=== PATIENT | female | born 1965 | race African-American/Black ===

== ENCOUNTER 2020-04-13 13:23 | Inpatient (IN) | payer MEDICARE, OTHER ==
[~2020-04-13] VITALS: Ht 157.5 cm; Wt 126.8 kg
[~2020-04-13 13:23] MED LIST: ALBUTEROL2.5 MG/3 M HHN; AMBIEN10 MG ORAL; ASPIRIN81 MG ORAL; ATARAX25 MG ORAL; ATARAX50 MG ORAL; BACTRIM DS TAB1 EAC1 ORAL; BENADRYL25 MG IVP; BENADRYL50 MG/ML IVP; CARISOPRODOL350 MG ORAL; CATAPRES0.1 MG ORAL; CEPHALEXIN500 MG ORAL; COLACE100 MG ORAL; COMBIVENT RESPIM4 GM IH; COZAAR50 MG ORAL; DEXTROSE 50%-WA50 M1 IV; DIAZEPAM10 MG ORAL; DILAUDID4 MG ORAL; FLONASE1 SPRAYS NASAL; FLUTICASONE PRO16 G1 NASAL; HYDROCODON-ACE1 EA13 ORAL; HYDROMORPHO IVP; IBUPROFEN200 MG ORAL; IMITREX50 MG ORAL; KEFLEX500 MG ORAL; LOSARTAN POTASS25 MG ORAL; NASONEX17 GM NASAL; NEURONTIN100 MG ORAL; NORCO 10-325 T1 EACH ORAL; NORCO 5-325 TA1 EACH ORAL; NOVOLOG100 UNIT/3 SUBQ; PHENAZOPYRIDIN200 MG ORAL; PREDNISONE10 M2 PO; PREDNISONE20 MG ORAL; PROTONIX40 MG ORAL; REGLAN10 MG ORAL; SOMA350 MG ORAL; SOMA350 MG PO; TOPIRAMATE25 MG ORAL; VALACYCLOVIR500 MG ORAL; VALIUM10 MG ORAL; VALTREX500 MG ORAL; VICODIN 5-5001 EACH ORAL; ZOFRAN 4 MG4 MG/2 ML IV; ZOFRAN4 M3 ORAL; ZOFRAN4 MG ORAL; ZOLPIDEM TARTRAT5 MG ORAL
--- NOTE | 2020-04-13 17:25 | NUR ---
NURSE NOTES: Received patient to room 404 bed 2, patient Direct Admission from home. Patient is alert and oriented,respirations unlabored.Noted patient with complaint of pain,with redness noted to bilateral palms of hands with a rash like appearance and swelling noted to hands.Bilateral legs /feet with swelling noted.will notify DR Garvin of patient admission.Call light within reach.Patient has personal belongings with henderson counted,patient wants to keep money with her.
[2020-04-13] MEDS ORDERED: Lidocaine 1% Plain 30 ml INJ PRN (18:07)
[2020-04-13] MEDS ORDERED: Heparin1,000 units/500ml Premix(Conc:2 units/ml) IV PRN (18:08)
[2020-04-13 18:33] VITALS: BP 177/101
[2020-04-13] MEDS: Docusate 100mg cap ORAL SCH (19:05)
--- NOTE | 2020-04-13 19:30 | NUR ---
HAND-OFF: Report given to Alda FENG aware of fall risk.
--- NOTE | 2020-04-13 19:31 | NUR ---
NURSE NOTES: Received patient in no apparent distress. A&OX4. Bed in lowest position. Call light within reach. Will continue to monitor.
[2020-04-13 20:00] VITALS: BP 142/90
[2020-04-13] MEDS: Dyna-Hex 2% Top Sol 2oz TOPIC SCH (20:00)
--- NOTE | 2020-04-13 20:06 | NUR ---
NURSE NOTES: Obtained Heparin 5000unit subq bid order from Dr. Garvin.
[2020-04-13] MEDS: Heparin 5000 units/ml inj SUBQ SCH (21:00)
[2020-04-13 22:00] LABS: ALANINE AMINOTRANSFERASE 37 U/L (12-78); ALBUMIN 3.4 G/DL (3.4-5.0); ALBUMIN/GLOBULIN RATIO 0.9 (1.0-2.7); ALKALINE PHOSPHATASE 127 U/L (46-116); ANION GAP 13 mmol/L (5-15); ASPARTATE AMINO TRANSFERASE 71 U/L (15-37); BILIRUBIN,TOTAL 0.2 MG/DL (0.2-1.0); BLOOD UREA NITROGEN 13 mg/dL (7-18); CALCIUM 8.9 MG/DL (8.5-10.1); CARBON DIOXIDE 24 MMOL/L (21-32); CHLORIDE 97 MMOL/L (98-107); CREATININE 1.1 MG/DL (0.55-1.30); POTASSIUM 5.1 MMOL/L (3.5-5.1); SODIUM 134 MMOL/L (136-145)
[2020-04-14] VITALS: BP 154/81
[2020-04-14 00:18] LABS: BASOPHILS % (AUTO) 1.6 % (0.0-2.0); EOSINOPHILS % (AUTO) 1.4 % (0.0-3.0); HEMATOCRIT 44.6 % (37.0-47.0); HEMOGLOBIN 14.3 G/DL (12.0-16.0); LYMPHOCYTES % (AUTO) 31.3 % (20.0-45.0); MEAN CORPUSCULAR VOLUME 84 FL (80-99); NEUTROPHILS % (AUTO) 60.7 % (45.0-75.0); PLATELET COUNT 261 K/UL (150-450); RED BLOOD COUNT 5.34 M/UL (4.20-5.40); RED CELL DISTRIBUTION WIDTH 12.1 % (11.6-14.8); WHITE BLOOD COUNT 7.2 K/UL (4.8-10.8)
[2020-04-14 04:00] VITALS: BP 160/98
--- NOTE | 2020-04-14 07:22 | NUR ---
HAND-OFF: Report given to Bev FENG. VS stable. Bed in lowest position. Call light within reach. Will continue to moniotor.
--- NOTE | 2020-04-14 07:59 | NUR ---
NURSE NOTES: Patient awake and alert and oriented,respirations unlabored.Patient sitting up.Noted skin on the right big toe second and 3rd toe,patient state she picked the dry skin around the toes and the skin around the toes start bleeding.Also noted on the left big toe and 2nd toe patient also state she picked the dry skin some bleeding noted,skin care and optiform dressing applied. Education provided patient is Diabetic.Call light within reach.
[2020-04-14 08:00] VITALS: BP 144/97
[2020-04-14] MEDS: Docusate 100mg cap ORAL SCH ×2 (08:58→18:48)
[2020-04-14] MEDS: Aspirin Baby 81mg ORAL SCH (08:58)
[2020-04-14] MEDS: Heparin 5000 units/ml inj SUBQ SCH ×2 (09:00→20:51)
[2020-04-14] MEDS: Losartan 50mg tab ORAL SCH (09:04)
[2020-04-14] MEDS: ceFAZolin sod 1 GM in D5W 55 ML IVPB SCH ×2 (11:00→22:00)
[2020-04-14 12:00] VITALS: BP 139/85
--- NOTE | 2020-04-14 12:02 | NUR ---
CASE MANAGEMENT:INITIAL REVIEW 54 YR OLD FEMALE DIRECT ADMIT TO MED SURG FROM HOME CC;PAIN SI;CELLULITIS 98.4 98 22 177/101 93% ON RA NA 134 CL 97 BG 447 AST 71 B ALK PHOS 127 IS;DILAUDID IV GABAPENTIN PO SOMA PO HEPARIN SUBQ ASA PO CEFAZOLIN IV ADMITTED TO MED SURG 04/13/20 @ 1754 MED SURG STATUS DCP; PATIENT IS FROM HOME PLAN OF CARE; PICC PLACEMENT VENOUS DUPLEX ARTERIAL DUPLEX
[2020-04-14] MEDS: metFORMIN 500mg tab ORAL SCH ×2 (12:17→17:24)
--- NOTE | 2020-04-14 12:27 | NUR ---
NURSE NOTES: Patient given Metformin as ordered,prior blood sugar checked,results 415,will notify Patient alert and oriented.
--- NOTE | 2020-04-14 12:29 | History and Physical Report ---
DATE OF ADMISSION: 04/13/2020 CHIEF COMPLAINT: Bilateral lower extremity cellulitis and wounds on the feet. HISTORY OF PRESENT ILLNESS: The patient is a 54-year-old female, well known to me. She has a history of lupus, asthma, hypertension, obesity, and diabetes, presented with complaints of lower extremity pain and erythema. She has had wounds on her feet. She is unclear exactly how she got them. She has been having bleeding from her toenails and developed blisters on some of her toes. She had worsening erythema, fevers, and chills, severe pain in the feet, and is now admitted for bilateral lower extremity cellulitis. PAST MEDICAL HISTORY: As above. PAST SURGICAL HISTORY: Includes knee surgery. CURRENT MEDICATIONS: Reconciled and reviewed. ALLERGIES: Include Cipro, Lovenox, Toradol, latex, Ritalin, potassium chloride, Compazine, vancomycin. FAMILY HISTORY: Noncontributory. SOCIAL HISTORY: There is no known history of tobacco, ethanol, or drugs. REVIEW OF SYSTEMS: GENERAL: Positive for fevers and chills, but no night sweats. HEENT: No headaches or visual changes. CARDIOPULMONARY: No chest pain or shortness of breath. GASTROINTESTINAL: No nausea or vomiting. GENITOURINARY: No urgency or frequency. MUSCULOSKELETAL: Positive joint pain, foot pain. NEUROLOGICAL: No history of seizures. PHYSICAL EXAMINATION: VITAL SIGNS: Temperature 98.4, pulse 98, respirations 22, blood pressure 160/98. GENERAL: The patient is a well-developed female. She has in moderate amount of distress due to pain. HEENT: Head is normocephalic and atraumatic. Pupils are equal, round, and reactive to light. Sclerae are anicteric. Oropharynx is clear. Mucous membranes moist. There are no ulcers noted. NECK: Supple. No adenopathy. HEART: Regular rate and rhythm. No murmurs, rubs, or gallops. LUNGS: Clear to auscultation bilaterally. ABDOMEN: Soft, nontender, nondistended. Obese EXTREMITIES: Without clubbing or cyanosis. The patient has erythema from extending up to the calf region. She is bleeding from around her first and second toes on both feet. She has a blister on the left second toe. LABORATORY DATA: White count of 7. Sodium 134, A1c of 12.3, glucose of 447. ASSESSMENT: This is a pleasant female with multiple medical problems including history of lupus, fibromyalgia, Raynaud syndrome, hypertension, and diabetes, admitted with complaints of bilateral lower extremity cellulitis. PLAN: 1. IV antibiotics. 2. Followup cultures. 3. ID, Cardiology, and Podiatry consultations to be obtained. 4. We will check arterial venous duplex of the lower extremities. Karthik Garvin M.D. DR: CECIL JOB#: [id number] CC:
--- NOTE | 2020-04-14 12:56 | NUR ---
CHARGE NURSe NOTE: Blood sugar 415. Dr. Garvin was called, message left.
[2020-04-14] MEDS: Doxycycline Monohydrate 100mg ORAL SCH ×2 (13:27→20:52)
--- NOTE | 2020-04-14 14:01 | NUR ---
CHARGE NURSE NOTE: Pt states that she needs an oxygen. sat 92-93%. notified.
--- NOTE | 2020-04-14 15:40 | Consultation ---
History of Present Illness General Date patient seen: Apr 14, 2020 Time patient seen: 15:22 Chief Complaint: Blisters bilateral feet Present Illness HPI Patient states that her condition began about a week ago and right hallux lesion began today. She states she was cleaning her toes and the they just started bleeding. Allergies: Coded Allergies: CIPROFLOXACIN (Verified Allergy, Severe, TWITCHING,ANAPHYLACTIC, 02/14/12) CIPROFLOXACIN HCL (Unverified Allergy, Severe, rash, 05/22/13) KETOROLAC (Verified Allergy, Severe, ITCHING,SWELLING, 12/31/11) KETOROLAC TROMETHAMINE (Unverified Allergy, Severe, rash, 05/22/13) LATEX (Verified Allergy, Severe, ITCHING,SWELLING,ANAPHYLACTIC, 02/14/12) PROCHLORPERAZINE (Verified Allergy, Severe, SWELLING,ITCHING, 12/31/11) PROCHLORPERAZINE EDISYLATE (Unverified Allergy, Severe, rash, 05/22/13) PROCHLORPERAZINE MALEATE (Unverified Allergy, Severe, rash, 05/22/13) ENOXAPARIN (Unverified Allergy, Unknown, Anaphylaxis, 09/16/14) METHYLPHENIDATE HCL (Verified Allergy, Unknown, 03/13/14) POTASSIUM CHLORIDE (Unverified Allergy, Unknown, 09/16/14) swollen tongue VANCOMYCIN (Verified Adverse Reaction, Intermediate, REDMANS SYNDROME, 24/09) PT IS FINE LONG VANCO INFUSED OVER 2 HRS Uncoded Allergies: PLASTIC TAPE (Allergy, Unknown, 09/05/11) Medication History Scheduled Aspirin* (Aspirin*), 81 MG ORAL DAILY, (Reported) Docusate Sodium* (Colace*), 100 MG ORAL TWICE A DAY, (Reported) Gabapentin* (Neurontin*), 300 MG ORAL THREE TIMES A DAY, (Reported) Losartan Potassium* (Cozaar*), 100 MG ORAL DAILY, (Reported) Metoclopramide Hcl* (Reglan*), 10 MG ORAL TWICE A DAY, (Reported) Ondansetron (Zofran), 4 MG ORAL Q8H, (Reported) Pantoprazole* (Protonix*), 40 MG ORAL DAILY, (Reported) Prednisone* (Prednisone*), 20 MG ORAL DAILY, (Reported) Topiramate* (Topamax*), 25 MG ORAL DAILY, (Reported) Valacyclovir Hcl* (Valtrex*), 1,000 MG ORAL THREE TIMES A DAY, (Reported) Scheduled PRN Albuterol Sulfate* (Albuterol Sulfate Hhn*), 2.5 MG HHN Q4H PRN for Bronchospasm , (Reported) Carisoprodol* (Soma*), 1 TAB ORAL Q4H PRN for For Pain, (Reported) Clonidine Hcl* (Catapres*), 0.1 MG ORAL Q4H PRN for For High Blood Pressure, ( Reported) Diazepam* (Valium*), 10 MG ORAL Q6H PRN for For Pain, (Reported) Diphenhydramine Hcl* (Benadryl*), 50 MG IVP Q4HR PRN for Itching, (Reported) Fluticasone Propionate* (Fluticasone Propionate*), 1 SPRAY NASAL TWICE A DAY PRN for AD, (Reported) Hydrocodone Bit/Acetaminophen 10-325* (Hydrocodon-Acetaminophn 10-325*), 1 TAB ORAL Q6H PRN for For Pain, (Reported) Insulin Aspart* (Novolog*), 0 SUBQ BEFORE MEALS AND HS PRN for Per rx protocol, (Reported) Ondansetron* (Zofran*), 4 MG IV Q4H PRN for Nausea & Vomiting, (Reported) Sumatriptan Succinate* (Imitrex*), 50 MG ORAL DAILY PRN MIGRAINE PRN for For Pain, (Reported) Zolpidem Tartrate* (Zolpidem Tartrate*), 5 MG ORAL BEDTIME PRN for Insomnia, ( Reported) Patient History History Provided By: Patient Healthcare decision maker N Resuscitation status Advanced Directive on File Past Medical/Surgical History Past Medical/Surgical History: (1) Diabetes mellitus type 2 in obese (2) Lupus (3) Obese (4) Blister of foot with infection Review of Systems Constitutional: Reports: no symptoms Respiratory: Reports: no symptoms Cardiovascular: Reports: no symptoms Skin: Reports: lesions Physical Exam Cardiovascular/Chest: normal peripheral pulses Skin Exam: normal pigmentation, other - superficial ulcerations noted on the distal toes right 1st and 2nd, and left 1st. Absent toenail right 2nd toe Musculoskeletal: normal muscle bulk Last 24 Hour Vital Signs Date Time Temp Pulse Resp B/P (MAP) Pulse Ox O2 Delivery O2 Flow Rate FiO2 04/14/20 13:55 Room Air 04/14/20 12:00 97.7 98 20 139/85 (103) 94 04/14/20 10:00 Room Air 04/14/20 09:04 155/103 04/14/20 08:00 96.8 94 20 144/97 (113) 94 04/14/20 04:00 98.4 98 22 160/98 (118) 94 04/14/20 00:00 98.1 93 22 154/81 (105) 95 04/13/20 21:00 Room Air 04/13/20 20:00 98.4 93 22 142/90 (107) 93 04/13/20 18:33 98.1 98 20 177/101 (126) 94 04/13/20 17:44 Room Air 04/13/20 17:24 Room Air Intake and Output 04/13/20 04/14/20 19:00 07:00 Intake Total 360 ml Balance 360 ml Intake Other 360 ml # Voids 2 Laboratory Tests Test 04/13/20 20:55 04/13/20 23:50 Sodium Level 134 MMOL/L (136-145) L Potassium Level 5.1 MMOL/L (3.5-5.1) Chloride Level 97 MMOL/L (98-107) L Carbon Dioxide Level 24 MMOL/L (21-32) Anion Gap 13 mmol/L (5-15) Blood Urea Nitrogen 13 mg/dL (7-18) Creatinine 1.1 MG/DL (0.55-1.30) Estimat Glomerular Filtration Rate > 60 mL/min (>60) Glucose Level 447 MG/DL (74-106) H Hemoglobin A1c 12.3 % (4.3-6.0) H Calcium Level 8.9 MG/DL (8.5-10.1) Total Bilirubin 0.2 MG/DL (0.2-1.0) Aspartate Amino Transf (AST/SGOT) 71 U/L (15-37) H Alanine Aminotransferase (ALT/SGPT) 37 U/L (12-78) Alkaline Phosphatase 127 U/L (46-116) H Total Protein 7.0 G/DL (6.4-8.2) Albumin 3.4 G/DL (3.4-5.0) Globulin 3.6 g/dL Albumin/Globulin Ratio 0.9 (1.0-2.7) L Anti-Nuclear Antibody Screen Pending White Blood Count 7.2 K/UL (4.8-10.8) Red Blood Count 5.34 M/UL (4.20-5.40) Hemoglobin 14.3 G/DL (12.0-16.0) Hematocrit 44.6 % (37.0-47.0) Mean Corpuscular Volume 84 FL (80-99) Mean Corpuscular Hemoglobin 26.8 PG (27.0-31.0) L Mean Corpuscular Hemoglobin Concent 32.1 G/DL (32.0-36.0) Red Cell Distribution Width 12.1 % (11.6-14.8) Platelet Count 261 K/UL (150-450) Mean Platelet Volume 8.6 FL (6.5-10.1) Neutrophils (%) (Auto) 60.7 % (45.0-75.0) Lymphocytes (%) (Auto) 31.3 % (20.0-45.0) Monocytes (%) (Auto) 5.0 % (1.0-10.0) Eosinophils (%) (Auto) 1.4 % (0.0-3.0) Basophils (%) (Auto) 1.6 % (0.0-2.0) Erythrocyte Sedimentation Rate 48 MM/HR (0-30) H Height (Feet): 5 Height (Inches): 2.00 Weight (Pounds): 271 Medications Current Medications Medications (Trade) Dose Ordered Sig/Juan Route PRN Reason Start Time Stop Time Status Last Admin Dose Admin Aspirin (ASA) 81 mg DAILY ORAL 04/14/20 09:00 05/29/20 08:59 04/14/20 08:58 Carisoprodol (Soma) 350 mg Q4H PRN ORAL muscle pain 04/13/20 18:00 05/13/20 17:59 04/14/20 10:49 Cefazolin Sodium 1 gm/Dextrose 55 ml @ 110 mls/hr Q8HR IVPB 04/14/20 11:00 04/21/20 10:59 Chlorhexidine Gluconate (Harriett-Hex 2%) 1 applic DAILY@2000 TOPIC 04/13/20 20:00 07/12/20 19:59 Dextrose (Dextrose 50%) 25 ml Q30M PRN IV Hypoglycemia 04/14/20 13:00 07/13/20 12:59 Dextrose (Dextrose 50%) 50 ml Q30M PRN IV Hypoglycemia 04/14/20 13:00 07/13/20 12:59 Diphenhydramine HCl (Benadryl Cream) 1 applic TIDPRN PRN TOPIC Itching 04/14/20 13:04 05/14/20 13:03 Diphenhydramine HCl (Benadryl) 50 mg Q4H PRN ORAL Itching 04/13/20 18:00 05/13/20 17:59 04/14/20 14:06 Docusate Sodium (Colace) 100 mg TWICE A DAY ORAL 04/13/20 18:07 05/13/20 18:06 04/14/20 08:58 Doxycycline Monohydrate (Doxycycline Monohydrate) 100 mg EVERY 12 HOURS ORAL 04/14/20 13:00 04/15/20 18:00 04/14/20 13:27 Gabapentin (Neurontin) 600 mg THREE TIMES A DAY ORAL 04/13/20 18:07 05/13/20 18:06 04/14/20 13:27 Heparin Sodium (Porcine) (Heparin 5000 units/ml) 5,000 units EVERY 12 HOURS SUBQ 04/13/20 21:00 05/28/20 20:59 Heparin Sodium/ Sodium Chloride (Heparin 1000 units/500ml Premix) 1,000 unit ONCE PRN IV PICC 04/13/20 18:08 04/14/20 23:59 Hydromorphone HCl (Dilaudid) 2 mg Q4H PRN SUBQ Severe Pain (Pain Scale 7-10) 04/13/20 18:08 04/20/20 18:07 04/14/20 14:03 Insulin Aspart (NovoLOG) BEFORE MEALS AND HS SUBQ 04/14/20 16:30 07/13/20 16:29 Lidocaine HCl (Xylocaine 1% 30ml) 30 ml ONCE PRN INJ PICC 04/13/20 18:07 04/14/20 23:59 Losartan Potassium (Cozaar) 100 mg DAILY ORAL 04/14/20 09:00 05/14/20 08:59 04/14/20 09:04 Metformin HCl (Glucophage) 1,000 mg TIAC ORAL 04/14/20 11:30 05/14/20 11:29 04/14/20 12:17 Ondansetron HCl (Zofran) 4 mg Q4H PRN ORAL Nausea & Vomiting 04/13/20 18:00 05/13/20 17:59 Assessment/Plan Assessment/Plan: A/ 1) Open lesions bilateral feet - blisters vs self inflicted wounds 2) Onycholysis right 2nd toe - self inflicted? 3) DM2 4) Obese P/ 1) No surgical intervention indicated at this time. Wound care orders placed. 2) Cont abx as prescribed 3) Psych following patient 4) Will follow Thank You Stephen Granda DPM Apr 14, 2020 15:40
[2020-04-14 16:00] VITALS: BP 135/87
--- NOTE | 2020-04-14 16:28 | Diagnostic Imaging Report ---
Indication: Bilateral foot pain and redness Technique: Duplex images of the bilateral lower extremity arteries Comparison: none Findings: Bilaterally, at all levels Doppler waveforms are triphasic with sharp systolic peaks. No focal flow velocity elevation demonstrated. No focal stenosis demonstrated on color Doppler or grayscale images Impression: Negative for evidence of lower extremity arterial insufficiency bilaterally
--- NOTE | 2020-04-14 16:46 | Diagnostic Imaging Report ---
Indication: Bilateral foot pain and cellulitis Technique: Grayscale and duplex images of the bilateral lower extremity veins Comparison: None Findings: Bilaterally, grayscale and duplex images demonstrate no evidence of intraluminal thrombus. Normal phasic Doppler waveforms, demonstrating normal augmentation response and no evidence of valvular insufficiency. Greater saphenous vein(s) and tibial veins are patent. Normal compressibility. Impression: Negative for evidence of lower extremity deep venous thrombosis bilaterally
[2020-04-14] MEDS: NovoLOG Insulin Flexpen SUBQ SCH ×2 (17:32→20:52)
[2020-04-14] MEDS: DiphenhydrAMINE & Zinc 28g Cream TOPIC PRN (17:36)
--- NOTE | 2020-04-14 18:57 | NUR ---
NURSE NOTES: Patient medicated for complaint of pain and itching,will follow up.Call light within reach.
--- NOTE | 2020-04-14 19:34 | NUR ---
HAND-OFF: Report given to Alda FENG. RN will give 1800 . dose of gabapentin
--- NOTE | 2020-04-14 19:35 | NUR ---
NURSE NOTES: Received patient in bed. Patient is sleeping. Bed in lowest position. Call light within reach. Will continue to monitor.
[2020-04-14 20:00] VITALS: BP 142/102
[2020-04-14] MEDS: Dyna-Hex 2% Top Sol 2oz TOPIC SCH (20:00)
[2020-04-15] VITALS: BP 135/59
--- NOTE | 2020-04-15 00:52 | NUR ---
NURSE NOTES: Dressing was changed on bilateral first and second toes as ordered.
[2020-04-15 04:00] VITALS: BP 110/71
[2020-04-15] MEDS: ceFAZolin sod 1 GM in D5W 55 ML IVPB SCH ×3 (05:21→21:11)
[2020-04-15] MEDS: DiphenhydrAMINE & Zinc 28g Cream TOPIC PRN (05:24)
[2020-04-15] MEDS: metFORMIN 500mg tab ORAL SCH ×3 (06:16→19:01)
[2020-04-15] MEDS: NovoLOG Insulin Flexpen SUBQ SCH ×4 (06:19→20:32)
--- NOTE | 2020-04-15 07:30 | NUR ---
HAND-OFF: Report given to Deborah FENG. Bed in lowest position. Call light within reach. Will continue to monitor.
--- NOTE | 2020-04-15 07:42 | NUR ---
nurse notes received patient in bed, patient awake, alert oriented x4, no sign of distress, on RA, No IV access noted, for PICC line today, on fall and aspiration precaution observed, plan of care was discussed verbalized understanding soy barron
[2020-04-15] MEDS ORDERED: Heparin1,000 units/500ml Premix(Conc:2 units/ml) INJ PRN (08:00)
[2020-04-15] MEDS ORDERED: Lidocaine 1% Plain 30 ml INJ PRN (08:00)
--- NOTE | 2020-04-15 08:13 | NUR ---
RD ASSESSMENT & RECOMMENDATIONS SEE CARE ACTIVITY FOR COMPLETE ASSESSMENT DAILY ESTIMATED NEEDS: Needs based on Obseity, DM 69.4 ABW 20-25 kcals/kg 3682-2657 total kcals 1.8-2 IBW g protein/kg 90-100 g total protein 20-30ml/kcal mL/kg 4324-9070 total fluid mLs NUTRITION DIAGNOSIS: Altered nutrition related lab values R/T DM as evidenced by pt A1C 12.3, BG 447 on adm, w/ elev POC. (CURRENT DIET: CCHO MED) PO DIET RECOMMENDATIONS: LOW NA/ CCHO LOW + DOUBLE PROTEIN PORTIONS ADDITIONAL RECOMMENDATIONS: 1) diet change as per recs above 2) Maintain calibrated bed scale wts Stated wt: 271# vs Bed scale wt: 280# 3) Diet edu provided re: carb control diet
[2020-04-15 08:27] VITALS: BP 153/84
[2020-04-15] MEDS: Doxycycline Monohydrate 100mg ORAL SCH (08:36)
[2020-04-15] MEDS: Losartan 50mg tab ORAL SCH (08:36)
[2020-04-15] MEDS: Docusate 100mg cap ORAL SCH ×2 (08:36→19:01)
[2020-04-15] MEDS: Aspirin Baby 81mg ORAL SCH (08:37)
[2020-04-15] MEDS: Heparin 5000 units/ml inj SUBQ SCH ×2 (08:42→20:36)
--- NOTE | 2020-04-15 09:11 | General Progress Note ---
Assessment/Plan Problem List: (1) Chest pain (2) Diabetes mellitus type 2 in obese ICD Codes: E11.69 - Type 2 diabetes mellitus with other specified complication ; E66.9 - Obesity, unspecified SNOMED: 15627705 (3) Obese ICD Codes: E66.9 - Obesity, unspecified SNOMED: 507661949, 208278587 (4) Blister of foot with infection ICD Codes: S90.829A - Blister (nonthermal), unspecified foot, initial encounter ; L08.9 - Local infection of the skin and subcutaneous tissue, unspecified SNOMED: 57506725 (5) Cellulitis ICD Codes: L03.90 - Cellulitis, unspecified SNOMED: 654056915 (6) lupus flare (7) Chronic pain (8) Hypertension ICD Codes: I10 - Essential (primary) hypertension SNOMED: 00198709 Status: stable Assessment/Plan: cont local wound care IV abx follow up cultures vascular studies ok(arterial/venous) pain rx picc line Subjective ROS Limited/Unobtainable: No Constitutional: Reports: malaise, weakness HEENT: Reports: no symptoms Cardiovascular: Reports: chest pain, edema Respiratory: Reports: no symptoms Gastrointestinal/Abdominal: Reports: abdominal pain Genitourinary: Reports: no symptoms Neurologic/Psychiatric: Reports: anxiety, depressed Endocrine: Reports: no symptoms Hematologic/Lymphatic: Reports: no symptoms Allergies: Coded Allergies: CIPROFLOXACIN (Verified Allergy, Severe, TWITCHING,ANAPHYLACTIC, 02/14/12) CIPROFLOXACIN HCL (Unverified Allergy, Severe, rash, 05/22/13) KETOROLAC (Verified Allergy, Severe, ITCHING,SWELLING, 12/31/11) KETOROLAC TROMETHAMINE (Unverified Allergy, Severe, rash, 05/22/13) LATEX (Verified Allergy, Severe, ITCHING,SWELLING,ANAPHYLACTIC, 02/14/12) PROCHLORPERAZINE (Verified Allergy, Severe, SWELLING,ITCHING, 12/31/11) PROCHLORPERAZINE EDISYLATE (Unverified Allergy, Severe, rash, 05/22/13) PROCHLORPERAZINE MALEATE (Unverified Allergy, Severe, rash, 05/22/13) ENOXAPARIN (Unverified Allergy, Unknown, Anaphylaxis, 09/16/14) METHYLPHENIDATE HCL (Verified Allergy, Unknown, 03/13/14) POTASSIUM CHLORIDE (Unverified Allergy, Unknown, 09/16/14) swollen tongue VANCOMYCIN (Verified Adverse Reaction, Intermediate, REDMANS SYNDROME, 24/09) PT IS FINE LONG VANCO INFUSED OVER 2 HRS Uncoded Allergies: PLASTIC TAPE (Allergy, Unknown, 09/05/11) All Systems: reviewed and negative except above Subjective no events. c/o chest pain abd pain leg pain and swelling. on iv abx. still with erythema angel LE. no fever or chills. no vomiting Objective Last 24 Hour Vital Signs Date Time Temp Pulse Resp B/P (MAP) Pulse Ox O2 Delivery O2 Flow Rate FiO2 04/15/20 08:49 Room Air 04/15/20 08:36 153/84 04/15/20 08:27 98.2 98 20 153/84 (107) 93 04/15/20 04:00 97.9 92 22 110/71 (84) 93 04/15/20 00:49 Room Air 04/15/20 00:00 97.8 98 22 135/59 (84) 92 04/14/20 20:25 Room Air 04/14/20 20:00 98.1 100 22 142/102 (115) 92 04/14/20 16:00 98.2 100 20 135/87 (103) 92 04/14/20 13:55 Room Air 04/14/20 12:00 97.7 98 20 139/85 (103) 94 04/14/20 10:00 Room Air Intake and Output 04/14/20 04/15/20 19:00 07:00 Intake Total 600 ml 360 ml Balance 600 ml 360 ml Intake Oral 600 ml Other 360 ml # Voids 4 2 Laboratory Tests 04/14/20 20:43: POC Whole Blood Glucose [Pending] 04/15/20 04:00: Pro-B-Type Natriuretic Peptide 20 04/15/20 05:40: POC Whole Blood Glucose [Pending] Height (Feet): 5 Height (Inches): 2.00 Weight (Pounds): 279 General Appearance: WD/WN, alert, obese EENT: PERRL/EOMI, normal ENT inspection Neck: non-tender, normal alignment, supple Cardiovascular: normal peripheral pulses Respiratory/Chest: chest wall non-tender, lungs clear, normal breath sounds, no respiratory distress, no accessory muscle use Abdomen: normal bowel sounds, non tender, soft, no organomegaly, no mass Extremities: normal range of motion Edema: 1+ Arm (L), 1+ Arm (R) Neurologic: dean for student affairs II-XII 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, alert, oriented x 3, responsive Lymphatic: normal anterior cervical (L), normal anterior cervical (R) Karthik Garvin MD Apr 15, 2020 09:11
[2020-04-15] MEDS: Levemir Flexpen SUBQ SCH ×2 (10:18→19:03)
--- NOTE | 2020-04-15 10:52 | NUR ---
CASE MANAGEMENT:REVIEW SI;LE CELLULITIS. LUPUS FLARE. IDDM. 98.2 98 22 153/84 92% ON RA IS;INSULIN LEVEMIR CEFAZOLIN IV ASA PO LOSARTAN PO HEPARIN SUBQ Q12 DILAUDID IV GABAPENTIN PO TID WOUND CARE MED SURG STATUS DCP;PATIENT IS FROM HOME PLAN; PICC PLACEMENT CONTINUE WOUND CARE
[2020-04-15 11:56] VITALS: BP 145/80
[2020-04-15] MEDS: Flonase Nasal Inhaler 16gm NASAL SCH ×2 (12:27→19:01)
--- NOTE | 2020-04-15 15:30 | NUR ---
NURSE NOTES Brought to RADIOLOGY FOR picc line insertion soy barron
--- NOTE | 2020-04-15 16:01 | Pre-Procedure Note/Attestation ---
Pre-Procedure Note/Attestation Complete Prior to Procedure Planned Procedure: not applicable Procedure Narrative: PICC Indications for Procedure Pre-Operative Diagnosis: needs assisted IV access Attestation I attest that I discussed the nature of the procedure; its benefits; risks and complications; and alternatives (and the risks and benefits of such alternatives ), prior to the procedure, with the patient (or the patient's legal junior sales representative). I attest that, if there was a reasonable possibility of needing a blood transfusion, the patient (or the patient's legal junior sales representative) was given the [facility] standardized written summary, pursuant to the Mir Kapaa Blood Safety Act ([place] Health and Safety Code # 1645, as amended). I attest that I re-evaluated the patient just prior to the surgery and that there has been no change in the patient's H&P, except as documented below: Jhon Martins MD Apr 15, 2020 16:01
--- NOTE | 2020-04-15 16:02 | Brief Operative Note ---
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
--- NOTE | 2020-04-15 16:32 | Diagnostic Imaging Report ---
Indications: Needs long-term IV access Technique: Ultrasound confirms patent compressible right basilic vein. Total sterile technique, including sterile probe cover and sterile gel, hat, mask, sterile gown, large sterile drape, and preparation with 2% chlorhexidine utilized. Local anesthesia with 1% lidocaine. Under real-time ultrasound guidance, puncture basilic vein using 21-gauge needle, documented and archived, passage 0.018 guidewire under direct fluoroscopy, which would not pass beyond the axilla. 4 Turkmen peel-away sheath was inserted, used to insert a Kumpe catheter, which was used to direct the guidewire centrally. A Kumpe catheter was inserted. The wire was used to determine the appropriate catheter length. 4 Turkmen Bard dual-lumen power PICC cut to 45 cm. It was inserted through the peel-away sheath. Peel-away sheath and guidewire removed. Catheter fixed to the skin. Both catheter ports aspirated and flushed. Patient tolerated procedure well, without immediate complication. Digital radiograph documents satisfactory catheter tip position, at the cavoatrial junction. Total fluoroscopy time and 5.3 seconds. Total dose area product 1.01 mGym2 Total number of images: 1 Impression: Successful placement of right arm PICC under sonographic and fluoroscopic guidance, as described above.
[2020-04-15 19:00] VITALS: BP 122/72
--- NOTE | 2020-04-15 19:30 | NUR ---
NURSE NOTES: Received patient awake in bed, alert and oriented x4. On room air, no SOB noted. With PICC on right upper arm double lumen cath both intact, asymptomatic and patient. Patient wanted her Dilaudid and Benadryl to be given IV. Will inform Dr. Garvin. Bed in lowest, lock engaged and alarm on. Will continue to monitor.
--- NOTE | 2020-04-15 19:40 | NUR ---
HAND-OFF: Report given to A KARL accordingly patient resting comfortably in bed no sign of distress, PICC line ok to used soy barron
[2020-04-15 20:00] VITALS: BP 133/78
--- NOTE | 2020-04-15 20:00 | NUR ---
NURSE NOTES: Obtained order from Dr. Garvin to change route for Dilaudid and Benadryl per patient's request to IV. Carried out. Will give as ordered.
[2020-04-15] MEDS: DiphenhydrAMINE 50mg/ml Inj IVP PRN (20:12)
[2020-04-15] MEDS: Dyna-Hex 2% Top Sol 2oz TOPIC SCH (20:12)
--- NOTE | 2020-04-15 22:15 | Psych Consult Progress Note ---
Psychiatry Progress Note Psychiatry Progress Note Subjective the pt is picking the skin around her toes anxious Medications Current Medications Medications (Trade) Dose Ordered Sig/Juan Route PRN Reason Start Time Stop Time Status Last Admin Dose Admin Aspirin (ASA) 81 mg DAILY ORAL 04/14/20 09:00 05/29/20 08:59 04/15/20 08:37 Carisoprodol (Soma) 350 mg Q4H PRN ORAL muscle pain 04/13/20 18:00 05/13/20 17:59 04/15/20 21:11 Cefazolin Sodium 1 gm/Dextrose 55 ml @ 110 mls/hr Q8HR IVPB 04/14/20 11:00 04/21/20 10:59 04/15/20 21:11 Chlorhexidine Gluconate (Harriett-Hex 2%) 1 applic DAILY@2000 TOPIC 04/13/20 20:00 07/12/20 19:59 04/15/20 20:12 Dextrose (Dextrose 50%) 25 ml Q30M PRN IV Hypoglycemia 04/14/20 13:00 07/13/20 12:59 Dextrose (Dextrose 50%) 50 ml Q30M PRN IV Hypoglycemia 04/14/20 13:00 07/13/20 12:59 Diphenhydramine HCl (Benadryl Cream) 1 applic TIDPRN PRN TOPIC Itching 04/14/20 13:04 05/14/20 13:03 04/15/20 05:24 Diphenhydramine HCl (Benadryl) 50 mg Q4H PRN IVP Itching 04/15/20 19:52 05/15/20 19:51 04/15/20 20:12 Diphenhydramine HCl (Benadryl) 50 mg Q4H PRN ORAL Itching 04/15/20 19:54 05/15/20 19:53 Docusate Sodium (Colace) 100 mg TWICE A DAY ORAL 04/13/20 18:07 05/13/20 18:06 04/15/20 19:01 Escitalopram Oxalate (Lexapro) 10 mg DAILY ORAL 04/15/20 09:00 05/15/20 08:59 04/15/20 08:36 Fluticasone Propionate (Flonase) 1 spray TWICE A DAY NASAL 04/15/20 12:00 05/15/20 11:59 04/15/20 19:01 Gabapentin (Neurontin) 600 mg THREE TIMES A DAY ORAL 04/13/20 18:07 05/13/20 18:06 04/15/20 19:01 Heparin Sodium (Porcine) (Heparin 5000 units/ml) 5,000 units EVERY 12 HOURS SUBQ 04/13/20 21:00 05/28/20 20:59 04/14/20 20:51 Heparin Sodium/ Sodium Chloride (Heparin 1000 units/500ml Premix) 1,000 unit ONCE PRN INJ radiology procedure 04/15/20 08:00 04/17/20 07:59 Hydromorphone HCl (Dilaudid) 2 mg Q4H PRN IVP Severe Pain (Pain Scale 7-10) 04/15/20 19:51 04/22/20 19:50 04/15/20 20:12 Hydromorphone HCl (Dilaudid) 2 mg Q4H PRN SUBQ Severe Pain (Pain Scale 7-10) 04/15/20 19:55 04/22/20 19:54 Insulin Aspart (NovoLOG) BEFORE MEALS AND HS SUBQ 04/14/20 16:30 07/13/20 16:29 04/15/20 20:32 Insulin Detemir (Levemir) 6 units BID SUBQ 04/15/20 10:00 07/14/20 09:59 04/15/20 19:03 Lidocaine (Xylocaine 5% cream) 1 applic DAILYPRN PRN TOPIC Mild Pain (Pain Scale 1-3) 04/15/20 12:00 07/14/20 11:59 04/15/20 12:28 Lidocaine HCl (Xylocaine 1% 30ml) 30 ml ONCE PRN INJ picc line placement 04/15/20 08:00 04/17/20 07:59 Losartan Potassium (Cozaar) 100 mg DAILY ORAL 04/14/20 09:00 05/14/20 08:59 04/15/20 08:36 Metformin HCl (Glucophage) 1,000 mg TIAC ORAL 04/14/20 11:30 05/14/20 11:29 04/15/20 19:01 Ondansetron HCl (Zofran) 4 mg Q4H PRN ORAL Nausea & Vomiting 04/13/20 18:00 05/13/20 17:59 Risperidone (RisperDAL) 2 mg BEDTIME ORAL 04/14/20 21:00 05/29/20 20:59 04/15/20 20:12 Allergies: Coded Allergies: CIPROFLOXACIN (Verified Allergy, Severe, TWITCHING,ANAPHYLACTIC, 02/14/12) CIPROFLOXACIN HCL (Unverified Allergy, Severe, rash, 05/22/13) KETOROLAC (Verified Allergy, Severe, ITCHING,SWELLING, 12/31/11) KETOROLAC TROMETHAMINE (Unverified Allergy, Severe, rash, 05/22/13) LATEX (Verified Allergy, Severe, ITCHING,SWELLING,ANAPHYLACTIC, 02/14/12) PROCHLORPERAZINE (Verified Allergy, Severe, SWELLING,ITCHING, 12/31/11) PROCHLORPERAZINE EDISYLATE (Unverified Allergy, Severe, rash, 05/22/13) PROCHLORPERAZINE MALEATE (Unverified Allergy, Severe, rash, 05/22/13) ENOXAPARIN (Unverified Allergy, Unknown, Anaphylaxis, 09/16/14) METHYLPHENIDATE HCL (Verified Allergy, Unknown, 03/13/14) POTASSIUM CHLORIDE (Unverified Allergy, Unknown, 09/16/14) swollen tongue VANCOMYCIN (Verified Adverse Reaction, Intermediate, REDMANS SYNDROME, 24/09) PT IS FINE LONG VANCO INFUSED OVER 2 HRS Uncoded Allergies: PLASTIC TAPE (Allergy, Unknown, 09/05/11) Objective Data Height (Feet): 5 Height (Inches): 2.00 Weight (Pounds): 279 Additional Comments: Alert, oriented x4 to self, place, situation, and date. Mood is depressed. Affect is constricted. Congruent mood. Thought process is linear and goal oriented. Thought content, there is suicidal ideation without plan. No homicidal ideation. No delusions. No auditory or visual hallucination. Cognition is impaired including memory and concentration. Insight and judgment is poor. Assessment/Plan to follow up and reassess Assessment/Plan Status: stable Assessment/Plan: ASSESSMENT: AXIS I: Anxiety disorder. PLAN: 1. lexapro and risperdal 3. Provide the patient with reality orientation. 4. We will continue Jack Vasques MD Apr 15, 2020 22:15
[2020-04-16] VITALS: BP 113/54
[2020-04-16] MEDS: DiphenhydrAMINE 50mg/ml Inj IVP PRN ×5 (02:46→20:12)
[2020-04-16 04:00] VITALS: BP 126/69
[2020-04-16] MEDS: ceFAZolin sod 1 GM in D5W 55 ML IVPB SCH (06:15)
[2020-04-16] MEDS: metFORMIN 500mg tab ORAL SCH ×3 (06:21→17:05)
[2020-04-16] MEDS: NovoLOG Insulin Flexpen SUBQ SCH ×4 (06:24→20:12)
[2020-04-16] MEDS: DiphenhydrAMINE & Zinc 28g Cream TOPIC PRN ×2 (06:27→18:49)
--- NOTE | 2020-04-16 07:00 | Consultation ---
DATE OF CONSULTATION: 04/14/2020 CONSULTING PHYSICIAN: Jack Vasques M.D. HISTORY OF PRESENT ILLNESS: This is a 54-year-old female who is well known to me from the previous hospitalization. The patient today as she has been picking her skin toes. She has history of lupus, asthma, hypertension, obesity, and diabetes. The patient in the room. The patient was removing the bandage over her toes and was taking pictures of it. The patient was rambling and jumping from one subject to another. She appeared to be anxious and disorganized. PAST PSYCHIATRIC HISTORY: Significant for depression and anxiety. She is not on any psychotropic medication, not following snf . ALLERGIES: Cipro, ketorolac, latex, potassium chloride. SUBSTANCE ABUSE HISTORY: No known history of illicit drug use or alcohol. MENTAL STATUS EXAMINATION: The patient is alert and oriented to times self, place, situation, and date. Mood is anxious. Affect is constricted, congruent with mood. Thought process is circumstantial. Thought content, no suicidal or homicidal ideation. Cognition is intact. Insight and judgment are limited. ASSESSMENT: [place] I Major depressive disorder. Anxiety disorder. [place] II Borderline cluster B personality. [place] III Diabetes mellitus. [place] IV Low. [place] V 50. PLAN: 1. We will start the patient on SSRI. 2. Risperidone 2 mg at bedtime. 3. Discussed with the nurse. Jack Vasques M.D. DR: ALIREZA JOB#: [id number] CC:
--- NOTE | 2020-04-16 07:33 | NUR ---
HAND-OFF: Report given to PING Damon.
--- NOTE | 2020-04-16 07:35 | NUR ---
NURSE NOTES: Seen PICC site with minimal amount of blood but there was no active bleeding. Changed CVP dressing.
--- NOTE | 2020-04-16 07:38 | NUR ---
NURSE NOTES: Patient alert x4; on room air, no sign of shortness of breath; talkative; PICC on Right Upper arm, double lumen, dressing dry and intact, TKO; upper and lower extremities swollen; side rails up x2, breaks engaged, bed at lowest position; call light within reach; will keep monitoring.
--- NOTE | 2020-04-16 07:42 | NUR ---
NURSE NOTES: Patient asked muffin well toasted; called kitchen waiting for Muffin;
[2020-04-16 08:00] VITALS: BP 127/69
[2020-04-16] MEDS: Aspirin Baby 81mg ORAL SCH (08:47)
[2020-04-16] MEDS: Docusate 100mg cap ORAL SCH ×2 (08:47→17:04)
[2020-04-16] MEDS: Flonase Nasal Inhaler 16gm NASAL SCH ×2 (08:47→17:04)
[2020-04-16] MEDS: Losartan 50mg tab ORAL SCH (08:47)
[2020-04-16] MEDS: Heparin 5000 units/ml inj SUBQ SCH ×2 (08:48→20:12)
[2020-04-16] MEDS: Levemir Flexpen SUBQ SCH ×2 (08:49→17:06)
--- NOTE | 2020-04-16 10:16 | General Progress Note ---
Assessment/Plan Problem List: (1) Chest pain (2) Diabetes mellitus type 2 in obese ICD Codes: E11.69 - Type 2 diabetes mellitus with other specified complication ; E66.9 - Obesity, unspecified SNOMED: 18656791 (3) Obese ICD Codes: E66.9 - Obesity, unspecified SNOMED: 428121086, 747480438 (4) Blister of foot with infection ICD Codes: S90.829A - Blister (nonthermal), unspecified foot, initial encounter ; L08.9 - Local infection of the skin and subcutaneous tissue, unspecified SNOMED: 38758391 (5) Cellulitis ICD Codes: L03.90 - Cellulitis, unspecified SNOMED: 536502109 (6) lupus flare (7) Chronic pain (8) Hypertension ICD Codes: I10 - Essential (primary) hypertension SNOMED: 89738225 Status: stable Assessment/Plan: cont local wound care IV abx adjusted follow up cultures vascular studies ok(arterial/venous) pain rx picc line psych rx Subjective ROS Limited/Unobtainable: No Constitutional: Reports: weakness HEENT: Reports: no symptoms Cardiovascular: Reports: no symptoms Respiratory: Reports: cough, shortness of breath Gastrointestinal/Abdominal: Reports: no symptoms Genitourinary: Reports: no symptoms Neurologic/Psychiatric: Reports: anxiety, depressed Endocrine: Reports: no symptoms Hematologic/Lymphatic: Reports: no symptoms Allergies: Coded Allergies: CIPROFLOXACIN (Verified Allergy, Severe, TWITCHING,ANAPHYLACTIC, 02/14/12) CIPROFLOXACIN HCL (Unverified Allergy, Severe, rash, 05/22/13) KETOROLAC (Verified Allergy, Severe, ITCHING,SWELLING, 12/31/11) KETOROLAC TROMETHAMINE (Unverified Allergy, Severe, rash, 05/22/13) LATEX (Verified Allergy, Severe, ITCHING,SWELLING,ANAPHYLACTIC, 02/14/12) PROCHLORPERAZINE (Verified Allergy, Severe, SWELLING,ITCHING, 12/31/11) PROCHLORPERAZINE EDISYLATE (Unverified Allergy, Severe, rash, 05/22/13) PROCHLORPERAZINE MALEATE (Unverified Allergy, Severe, rash, 05/22/13) ENOXAPARIN (Unverified Allergy, Unknown, Anaphylaxis, 12/9/14) METHYLPHENIDATE HCL (Verified Allergy, Unknown, 03/13/14) POTASSIUM CHLORIDE (Unverified Allergy, Unknown, 09/16/14) swollen tongue VANCOMYCIN (Verified Adverse Reaction, Intermediate, REDMANS SYNDROME, 24/09) PT IS FINE LONG VANCO INFUSED OVER 2 HRS Uncoded Allergies: PLASTIC TAPE (Allergy, Unknown, 09/05/11) All Systems: reviewed and negative except above Subjective s/p picc line. pain better controlled. still with erythema of angel LE. no fevers or chills. no sob. Objective Last 24 Hour Vital Signs Date Time Temp Pulse Resp B/P (MAP) Pulse Ox O2 Delivery O2 Flow Rate FiO2 04/16/20 09:28 98.6 04/16/20 09:00 Room Air 04/16/20 08:47 127/69 04/16/20 08:00 98.6 95 19 127/69 (88) 98 04/16/20 04:00 98.1 82 18 126/69 (88) 93 04/16/20 00:00 98.0 89 18 113/54 (73) 93 04/15/20 21:34 Room Air 04/15/20 20:00 97.2 88 18 133/78 (96) 93 04/15/20 19:00 96.8 98 20 122/72 (89) 94 04/15/20 11:56 97.5 99 20 145/80 (101) 94 Intake and Output 04/15/20 04/16/20 19:00 07:00 Intake Total 940 ml 470 ml Balance 940 ml 470 ml Intake Oral 940 ml 360 ml IV Total 110 ml # Voids 2 1 Laboratory Tests 04/15/20 11:38: POC Whole Blood Glucose 270H 04/15/20 18:58: POC Whole Blood Glucose 249H 04/16/20 06:19: POC Whole Blood Glucose [Pending] Height (Feet): 5 Height (Inches): 2.00 Weight (Pounds): 279 Objective General Appearance: WD/WN, alert, obese EENT: PERRL/EOMI, normal ENT inspection Neck: non-tender, normal alignment, supple Cardiovascular: normal peripheral pulses Respiratory/Chest: chest wall non-tender, lungs clear, normal breath sounds, no respiratory distress, no accessory muscle use Abdomen: normal bowel sounds, non tender, soft, no organomegaly, no mass Extremities: normal range of motion Edema: 1+ Arm (L), 1+ Arm (R). 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
[2020-04-16 12:00] VITALS: BP 121/83
[2020-04-16] MEDS ORDERED: Vancomycin 1.5gm/NS Premix IVPB ONE (12:00)
--- NOTE | 2020-04-16 12:36 | NUR ---
RADIOLOGY DEPT., BILATERAL FEET IMAGED.-P.DYE
--- NOTE | 2020-04-16 14:12 | NUR ---
Discharge planning Patient has PICC line in place MANNY gomez MD to obtain POC CM will F/U
--- NOTE | 2020-04-16 15:25 | NUR ---
NURSE NOTES: Warm pack provided to patient;
--- NOTE | 2020-04-16 15:58 | Diagnostic Imaging Report ---
Indication: Pain, infection Technique: 3 views left foot Comparison: none Findings: There is hammertoe deformity of the second through fifth digits. No acute fractures. No dislocations. The joint spaces are preserved. No definite osseous erosions. There is a mild calcaneal spur Impression: No acute bony trauma No definite plain radiographic evidence of osteomyelitis. Note, however, limited sensitivity of plain radiographs for such. If there is high clinical suspicion, consider MRI for better characterization
[2020-04-16 16:00] VITALS: BP 139/88
--- NOTE | 2020-04-16 16:36 | Diagnostic Imaging Report ---
Indication: Foot pain Technique: 3 views right foot Comparison: none Findings: There is hammertoe deformity of the second through fifth digits. No acute fractures. No dislocations. The joint spaces are preserved. Surgical hardware is seen reducing old healed distal fibular fracture. Impression: No acute bony trauma Deformities as described No radiographic evidence of acute osteomyelitis. However, note limited sensitivity of plain radiographs. Consider MRI if there is high clinical suspicion
--- NOTE | 2020-04-16 19:09 | NUR ---
HAND-OFF: Report given to PING Cantu. Patient is resting, stable at this time;
--- NOTE | 2020-04-16 19:33 | NUR ---
NURSE NOTES: Received patient comfortably resting in bed, no SOB noted.
[2020-04-16] MEDS: Dyna-Hex 2% Top Sol 2oz TOPIC SCH (20:12)
[2020-04-16 20:27] VITALS: BP 112/66
[2020-04-17] MEDS: DiphenhydrAMINE 50mg/ml Inj IVP PRN ×6 (00:23→21:34)
[2020-04-17 00:31] VITALS: BP 115/58
[2020-04-17] MEDS: DiphenhydrAMINE & Zinc 28g Cream TOPIC PRN ×2 (03:05→10:26)
[2020-04-17 04:00] VITALS: BP 121/72
[2020-04-17] MEDS: NovoLOG Insulin Flexpen SUBQ SCH ×4 (05:34→20:49)
[2020-04-17] MEDS: metFORMIN 500mg tab ORAL SCH ×3 (05:35→17:32)
--- NOTE | 2020-04-17 07:23 | NUR ---
HAND-OFF: Report given to PING Govea.
--- NOTE | 2020-04-17 07:35 | NUR ---
NURSE NOTES: received report, pt is in bed alert and awake. denies any pain at this time. respiration is even and unlabored. nurse exchanged greetings with pt. no acute distress noted. call light is within reach, will review and follow plan of care.
[2020-04-17 08:00] VITALS: BP 153/94
[2020-04-17] MEDS: Heparin 5000 units/ml inj SUBQ SCH ×2 (09:16→20:47)
[2020-04-17] MEDS: Docusate 100mg cap ORAL SCH ×2 (09:17→17:32)
[2020-04-17] MEDS: Aspirin Baby 81mg ORAL SCH (09:17)
[2020-04-17] MEDS: Losartan 50mg tab ORAL SCH (09:17)
[2020-04-17] MEDS: Flonase Nasal Inhaler 16gm NASAL SCH ×2 (09:22→17:32)
[2020-04-17] MEDS: Levemir Flexpen SUBQ SCH ×2 (09:51→17:32)
--- NOTE | 2020-04-17 10:06 | NUR ---
CASE MANAGEMENT: REVIEW 04/17/2020 SI:CELLULITIS OF THE LEFT TOE VS: T 98 HR 73 RR 20 B/P 153/94 SATS 97% ON RA LABS: NO LABS TODAY IS: RISPERDAL PO QHS LEVEMIR SUBQ BID ASA PO QD COZAAR PO QD INSULIN ASPART SUBQ AC/HS VANCO IV Q24H METFORMIN PO TIAC XRAY LEFT FOOT >> Impression: No acute bony trauma MED/SURG PLAN OF CARE: cont local wound care
--- NOTE | 2020-04-17 10:44 | NUR ---
DISCHARGE PLANNING: NOTE CM S/W SPOKE WITH THE PATIENT AT THE BEDSIDE. PATIENT IS AGREEABLE TO SNF PLACEMENT PT SPECIFICALLY MENTIONED [facility] REFERRAL SENT TO [facility] AT [facility] AWARE OF DCP AND AGREEABLE NO COVID TEST OR RESULT NOTED. IF ACCEPTED TO SNF PT WILL NEED COVID TESTING [facility] P: [phone]/F: [phone] Addendum: 04/17/20 at 1449 by Eleanor Hitchcock CM PER [facility] @ [facility] PATIENT HAS BEEN CLINICALLY ACCEPTED. AWARE >> AGREED TO DC PT WITH PICC AND VANCO RAPID COVID PENDING
[2020-04-17 12:00] VITALS: BP 130/79
[2020-04-17] MEDS: Vancomycin 1gm/D5W 275ml IVPB SCH ×4 (12:00→12:33)
[2020-04-17 16:00] VITALS: BP 125/80
--- NOTE | 2020-04-17 17:49 | NUR ---
CASE MANAGEMENT: NOTE [facility] [phone] PROVIDED CM WITH ROOM 2B ROOM WILL BE AVAILABLE 04/18 TRANSFER PACKET IN CHART CALL [phone] FOR REPORT [facility] IS ON WILL CALL COVID RESULTS FAXED TO [facility] NURSING UPDTED AND AWARE
--- NOTE | 2020-04-17 19:20 | NUR ---
NURSE NOTES: RECEIVED PATIENT FROM PING OROPEZA. PATIENT IS AWAKE, AAOX4, ON ROOM AIR, NO ACUTE DISTRESS NOTED. PATIENT DENIES PAIN AT THE MOMENT, ALSO DENIES SOB. SWELLING AND REDNESS NOTED ON BILATERAL HANDS, WARM TO TOUCH. MILD SWELLING ON BILATERAL FEET, PATIENT ABLE TO AMBULATE. PICC LINE ON RIGHT UPPER ARM DOUBLE LUMEN, FLUSHING WELL, DRESSINGS INTACT. BED IS LOCKED AND LOW, BED ALARMS ACTIVE,SIDE RAILS UPX2 AND CALL LIGHT IS WITHIN REACH. WILL CONTINUE TO MONITOR.
--- NOTE | 2020-04-17 19:37 | NUR ---
HAND-OFF: Report given to ADAME.
[2020-04-17 20:00] VITALS: BP 133/95
[2020-04-17] MEDS: Dyna-Hex 2% Top Sol 2oz TOPIC SCH (20:33)
[2020-04-18] VITALS: BP 129/90
[2020-04-18] MEDS: DiphenhydrAMINE 50mg/ml Inj IVP PRN ×4 (01:31→13:42)
[2020-04-18 04:00] VITALS: BP 143/84
--- NOTE | 2020-04-18 04:30 | Progress Note ---
DATE: 04/17/2020 CARDIOLOGY PROGRESS NOTE SUBJECTIVE: Discharge pending. [facility] in [facility]. The patient still has pain of chest, legs, and back. She has a PICC line for therapies by intravenous route. OBJECTIVE: VITAL SIGNS: Blood pressure 125/80, pulse 98, respiratory rate 18, afebrile. CHEST WALL: Tender chest wall and back. LUNGS: Clear. CARDIAC: Regular. Normal S1, S2 with no murmur. ABDOMEN: Soft and obese. EXTREMITIES: With less erythema and trace dependent edema. IMPRESSION: 1. Fibromyalgia associated pain. 2. Diabetes mellitus, poorly controlled. 3. Hypertensive heart disease. 4. Chronic venous insufficiency. 5. Raynaud syndrome. 6. Systemic lupus. 7. Cellulitis of the lower extremities. PLAN: 1. Pain control. 2. Antimicrobials. 3. Skin care. 4. DVT prophylaxis. 5. Discharge planning. 6. Maintain losartan at current dosing. 7. Optimize glucose control. 8. Maintain anti-platelet therapy. Shan Feliz M.D. DR: SURJIT JOB#: [id number] CC:
[2020-04-18] MEDS: metFORMIN 500mg tab ORAL SCH ×2 (06:00→11:08)
[2020-04-18] MEDS: NovoLOG Insulin Flexpen SUBQ SCH ×2 (06:05→12:12)
[2020-04-18 06:25] LABS: BASOPHILS % (AUTO) 1.1 % (0.0-2.0); EOSINOPHILS % (AUTO) 2.6 % (0.0-3.0); HEMATOCRIT 37.1 % (37.0-47.0); HEMOGLOBIN 11.6 G/DL (12.0-16.0); LYMPHOCYTES % (AUTO) 26.6 % (20.0-45.0); MEAN CORPUSCULAR VOLUME 86 FL (80-99); MONOCYTES % (AUTO) 5.9 % (1.0-10.0); NEUTROPHILS % (AUTO) 63.9 % (45.0-75.0); PLATELET COUNT 208 K/UL (150-450); RED BLOOD COUNT 4.34 M/UL (4.20-5.40); RED CELL DISTRIBUTION WIDTH 12.9 % (11.6-14.8); WHITE BLOOD COUNT 5.1 K/UL (4.8-10.8)
--- NOTE | 2020-04-18 07:20 | NUR ---
HAND-OFF: Report given to PING Jama. Patient is in stable condition. Endorsed POC.
[2020-04-18 07:26] LABS: ANION GAP 7 mmol/L (5-15); BLOOD UREA NITROGEN 14 mg/dL (7-18); CALCIUM 8.6 MG/DL (8.5-10.1); CARBON DIOXIDE 30 MMOL/L (21-32); CHLORIDE 101 MMOL/L (98-107); POTASSIUM 4.5 MMOL/L (3.5-5.1); SODIUM 138 MMOL/L (136-145)
--- NOTE | 2020-04-18 07:28 | Podiatric Progress Note ---
Assessment/Plan Patient Ashley Hines is a 54 year old female who was admitted on Apr 13, 2020 at 17: 00 with Assessment/Plan A/ 1) Open lesions bilateral feet - blisters vs self inflicted wounds - healing 2) Onycholysis right 2nd toe - healing 3) DM2 4) Obese P/ 1) No surgical intervention indicated. Cont wound care 2) Cont abx as prescribed 3) Psych following patient 4) Will need PT at SNF for "tightness" of feet. Subjective Allergies: Coded Allergies: CIPROFLOXACIN (Verified Allergy, Severe, TWITCHING,ANAPHYLACTIC, 02/14/12) CIPROFLOXACIN HCL (Unverified Allergy, Severe, rash, 05/22/13) KETOROLAC (Verified Allergy, Severe, ITCHING,SWELLING, 12/31/11) KETOROLAC TROMETHAMINE (Unverified Allergy, Severe, rash, 05/22/13) LATEX (Verified Allergy, Severe, ITCHING,SWELLING,ANAPHYLACTIC, 02/14/12) PROCHLORPERAZINE (Verified Allergy, Severe, SWELLING,ITCHING, 12/31/11) PROCHLORPERAZINE EDISYLATE (Unverified Allergy, Severe, rash, 05/22/13) PROCHLORPERAZINE MALEATE (Unverified Allergy, Severe, rash, 05/22/13) ENOXAPARIN (Unverified Allergy, Unknown, Anaphylaxis, 09/16/14) METHYLPHENIDATE HCL (Verified Allergy, Unknown, 03/13/14) POTASSIUM CHLORIDE (Unverified Allergy, Unknown, 09/16/14) swollen tongue VANCOMYCIN (Verified Adverse Reaction, Intermediate, REDMANS SYNDROME, 24/09) PT IS FINE LONG VANCO INFUSED OVER 2 HRS Uncoded Allergies: PLASTIC TAPE (Allergy, Unknown, 09/05/11) Subjective Patient admits toes are doing better but complains of pulling of feet, tightness in different directions on both feet. Objective Exam Last 24 Hour Vital Signs Date Time Temp Pulse Resp B/P (MAP) Pulse Ox O2 Delivery O2 Flow Rate FiO2 04/18/20 04:00 98.0 94 20 143/84 (103) 95 04/18/20 00:00 98.0 88 21 129/90 (103) 97 04/17/20 21:00 Room Air 04/17/20 20:00 98.2 94 21 133/95 (108) 97 04/17/20 16:00 98.5 98 18 125/80 (95) 97 04/17/20 12:00 98.1 94 19 130/79 (96) 95 04/17/20 09:17 153/94 04/17/20 09:00 Room Air 04/17/20 08:00 98.0 73 20 153/94 (113) 97 Laboratory Tests Test 04/17/20 09:25 04/17/20 11:58 04/18/20 05:00 POC Whole Blood Glucose Pending 255 MG/DL (74-106) H White Blood Count 5.1 K/UL (4.8-10.8) Red Blood Count 4.34 M/UL (4.20-5.40) Hemoglobin 11.6 G/DL (12.0-16.0) L Hematocrit 37.1 % (37.0-47.0) Mean Corpuscular Volume 86 FL (80-99) Mean Corpuscular Hemoglobin 26.6 PG (27.0-31.0) L Mean Corpuscular Hemoglobin Concent 31.1 G/DL (32.0-36.0) L Red Cell Distribution Width 12.9 % (11.6-14.8) Platelet Count 208 K/UL (150-450) Mean Platelet Volume 7.9 FL (6.5-10.1) Neutrophils (%) (Auto) 63.9 % (45.0-75.0) Lymphocytes (%) (Auto) 26.6 % (20.0-45.0) Monocytes (%) (Auto) 5.9 % (1.0-10.0) Eosinophils (%) (Auto) 2.6 % (0.0-3.0) Basophils (%) (Auto) 1.1 % (0.0-2.0) Sodium Level Pending Potassium Level Pending Chloride Level Pending Carbon Dioxide Level Pending Blood Urea Nitrogen Pending Creatinine Pending Estimat Glomerular Filtration Rate Pending Glucose Level Pending Calcium Level Pending Microbiology Date/Time Source Procedure Growth Status 04/13/20 20:55 Blood Blood Culture - Preliminary NO GROWTH AFTER 4 DAYS Resulted 04/17/20 15:38 Nasopharynx SARS-CoV-2 RdRp Gene Assay - Final Complete Dermatological Dermatological Narrative Blister left foot resolved. Blisters right foot healing. No signs of infection noted. No overt MSK defect noted. Bounding pedal pulses bilateral Stephen Smith DPEthan Apr 18, 2020 07:28
--- NOTE | 2020-04-18 07:30 | NUR ---
NURSE NOTES: Received patient in bed. Awake, A/O x4. On room air. PICC line in the Right upper arm, site intact. Bed low and locked.
[2020-04-18 08:00] VITALS: BP 152/107
--- NOTE | 2020-04-18 08:42 | NUR ---
CHARGE NURSE NOTE: Pt will be discharged today to [facility] ([facility] Report given to [facility] Haile. (they want to receive pt around 2 pm). [facility] will be arranged at this time.
--- NOTE | 2020-04-18 08:50 | NUR ---
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
[2020-04-18] MEDS: Docusate 100mg cap ORAL SCH (08:57)
[2020-04-18] MEDS: Aspirin Baby 81mg ORAL SCH (08:57)
[2020-04-18] MEDS: Losartan 50mg tab ORAL SCH (08:57)
[2020-04-18] MEDS: Flonase Nasal Inhaler 16gm NASAL SCH (09:00)
[2020-04-18] MEDS: Heparin 5000 units/ml inj SUBQ SCH (09:00)
[2020-04-18] MEDS: Levemir Flexpen SUBQ SCH (09:05)
--- NOTE | 2020-04-18 09:06 | NUR ---
NURSE NOTES: Patient refused subcut heparin injection. Patient re-educated on risks and benefits. Patient states "I bleed when I take blood thinners. I am not taking any blood thinners."
[2020-04-18] MEDS ORDERED: LEVEMIR FL100 UNIT/1 SUBQ (10:20)
[2020-04-18] MEDS ORDERED: RISPERDAL2 MG ORAL (10:20)
[2020-04-18] MEDS ORDERED: HYDROMORPHO2 MG/1 M5 IVP (10:20)
[2020-04-18] MEDS ORDERED: GLUCOPHAGE500 MG ORAL (10:20)
[2020-04-18] MEDS ORDERED: VANCOMYCIN750 MG/150 IVPB (10:20)
[2020-04-18] MEDS: DiphenhydrAMINE & Zinc 28g Cream TOPIC PRN (11:09)
[2020-04-18 12:00] VITALS: BP 147/96
[2020-04-18] MEDS: Vancomycin 1gm/D5W 275ml IVPB SCH ×2 (12:18)
--- NOTE | 2020-04-18 14:29 | NUR ---
NURSE NOTES: [facility]ateint d/c via [facility]. Patient stable, VSS. PICC line in the Right upper arm, site intact. Belongings list verified. ID band removed.
--- NOTE | 2020-04-18 17:35 | Psych Consult Progress Note ---
Psychiatry Progress Note Psychiatry Progress Note Subjective 04/17/20 the pt is the same educated her about dm and not picking at her toes poor insight Neurological/Psychiatric: Reports: anxiety, depressed, emotional problems Allergies: Coded Allergies: CIPROFLOXACIN (Verified Allergy, Severe, TWITCHING,ANAPHYLACTIC, 02/14/12) CIPROFLOXACIN HCL (Unverified Allergy, Severe, rash, 05/22/13) KETOROLAC (Verified Allergy, Severe, ITCHING,SWELLING, 12/31/11) KETOROLAC TROMETHAMINE (Unverified Allergy, Severe, rash, 05/22/13) LATEX (Verified Allergy, Severe, ITCHING,SWELLING,ANAPHYLACTIC, 02/14/12) PROCHLORPERAZINE (Verified Allergy, Severe, SWELLING,ITCHING, 12/31/11) PROCHLORPERAZINE EDISYLATE (Unverified Allergy, Severe, rash, 05/22/13) PROCHLORPERAZINE MALEATE (Unverified Allergy, Severe, rash, 05/22/13) ENOXAPARIN (Unverified Allergy, Unknown, Anaphylaxis, 09/16/14) METHYLPHENIDATE HCL (Verified Allergy, Unknown, 03/13/14) POTASSIUM CHLORIDE (Unverified Allergy, Unknown, 09/16/14) swollen tongue VANCOMYCIN (Verified Adverse Reaction, Intermediate, REDMANS SYNDROME, 24/09) PT IS FINE LONG VANCO INFUSED OVER 2 HRS Uncoded Allergies: PLASTIC TAPE (Allergy, Unknown, 09/05/11) Objective Data Height (Feet): 5 Height (Inches): 2.00 Weight (Pounds): 279 Additional Comments: Mood is depressed. Affect is constricted. Congruent mood. Thought process is linear and goal oriented. Thought content, there is suicidal ideation without plan. No homicidal ideation. No delusions. No auditory or visual hallucination. Cognition is impaired including memory and concentration. Insight and judgment is poor. Assessment/Plan Status: stable Assessment/Plan: ASSESSMENT: AXIS I: Anxiety disorder. PLAN: 1. lexapro and risperdal 3. Provide the patient with reality orientation. 4. We will continue Jack Vasques MD Apr 18, 2020 17:35
--- NOTE | 2020-04-18 17:36 | Psych Consult Progress Note ---
Psychiatry Progress Note Psychiatry Progress Note Subjective 04/18/20 The pt is being discharged. the pt is less anxious poor j/i noncompliant Allergies: Coded Allergies: CIPROFLOXACIN (Verified Allergy, Severe, TWITCHING,ANAPHYLACTIC, 02/14/12) CIPROFLOXACIN HCL (Unverified Allergy, Severe, rash, 05/22/13) KETOROLAC (Verified Allergy, Severe, ITCHING,SWELLING, 12/31/11) KETOROLAC TROMETHAMINE (Unverified Allergy, Severe, rash, 05/22/13) LATEX (Verified Allergy, Severe, ITCHING,SWELLING,ANAPHYLACTIC, 02/14/12) PROCHLORPERAZINE (Verified Allergy, Severe, SWELLING,ITCHING, 12/31/11) PROCHLORPERAZINE EDISYLATE (Unverified Allergy, Severe, rash, 05/22/13) PROCHLORPERAZINE MALEATE (Unverified Allergy, Severe, rash, 05/22/13) ENOXAPARIN (Unverified Allergy, Unknown, Anaphylaxis, 09/16/14) METHYLPHENIDATE HCL (Verified Allergy, Unknown, 03/13/14) POTASSIUM CHLORIDE (Unverified Allergy, Unknown, 09/16/14) swollen tongue VANCOMYCIN (Verified Adverse Reaction, Intermediate, REDMANS SYNDROME, 24/09) PT IS FINE LONG VANCO INFUSED OVER 2 HRS Uncoded Allergies: PLASTIC TAPE (Allergy, Unknown, 09/05/11) Objective Data Height (Feet): 5 Height (Inches): 2.00 Weight (Pounds): 279 Additional Comments: Mood is depressed. Affect is constricted. Congruent mood. Thought process is linear and goal oriented. Thought content, there is suicidal ideation without plan. No homicidal ideation. No delusions. No auditory or visual hallucination. Cognition is impaired including memory and concentration. Insight and judgment is poor. Assessment/Plan Status: stable Assessment/Plan: ASSESSMENT: AXIS I: Anxiety disorder. PLAN: 1. lexapro and risperdal 3. Provide the patient with reality orientation. 4. We will continue Jack Vasques MD Apr 18, 2020 17:36
--- NOTE | 2020-04-19 03:00 | Progress Note ---
DATE: 04/16/2020 CARDIOLOGY PROGRESS NOTE SUBJECTIVE: The patient had a PICC line placed yesterday. IV therapy is now being administered for better pain control. Her lower extremities still have redness and warmth with slight swelling. She does not have any chest pain, but complains of back pain. OBJECTIVE: VITAL SIGNS: Her blood pressure is 127/69, heart rate 95, respiratory rate 19, and afebrile. Oxygen saturation on room air is 93% to 94%. LUNGS: On exam diminished breath sounds. HEART: Regular rhythm and rate. Normal S1, S2 with no new murmur. ABDOMEN: Soft. EXTREMITIES: 1+ dependent edema with erythema. PICC site with no bleeding. IMPRESSION: 1. Fibromyalgia. 2. Acute on chronic pain. 3. Lower extremity edema and cellulitis. 4. Venous insufficiency. 5. Microvascular coronary artery disease. 6. Hypertensive heart disease. 7. Systemic lupus. 8. Poor peripheral venous access. PLAN: 1. Central venous access with PICC. 2. Pain control. 3. Skin care. 4. Antimicrobials. 5. DVT prophylaxis. 6. Maintain anti-platelet therapy. Shan Feliz M.D. DR: MILLIE JOB#: [id number] CC:
--- NOTE | 2020-04-20 02:44 | Progress Note ---
DATE: 04/18/2020 SUBJECTIVE: Discharge plan to intermediate facility. Medications are reviewed and discussed with Dr. Garvin. The patient has no new complaints. Still with pain however. Blood pressure parameters still are labile. However, they seemed to be elevated when she complains of pain. OBJECTIVE: VITAL SIGNS: Blood pressure 143/84 to 152/107, heart rate 87, respiratory rate 20, and afebrile. LUNGS: Diminished breath sounds. No wheezing. HEART: Regular rhythm and rate. Normal S1, S2 with no murmur, rub, or gallop. ABDOMEN: Obese and soft. EXTREMITIES: With trace dependent edema. Less erythema. IMPRESSION AND PLAN: 1. Stable for transfer to intermediate facility. 2. Still needs titration and optimization of blood pressure and pain control. 3. Continues to require treatment for cellulitis with antimicrobials . 4. Will require DVT prophylaxis with subcutaneous heparin or Lovenox. 5. Long-term optimization of diabetic therapy is in progress. 6. We will follow up as an outpatient for long-term cardiac care. 7. Discussed with the patient and Dr. Garvin in detail. Marline Bethea JOB#: [id number] CC:
--- NOTE | 2020-04-20 03:29 | Consultation ---
DATE OF CONSULTATION: 04/14/2020 CARDIOLOGY CONSULTATION CONSULTING PHYSICIAN: Shan Feliz M.D. REASON FOR CONSULTATION: Chest pain. HISTORY OF PRESENT ILLNESS: This is a 54-year-old female. She has systemic lupus, fibromyalgia, and chronic pain. She also has significant risk factors for coronary disease including hypertension, obesity, and diabetes. PAST MEDICAL HISTORY: Osteoarthritis, knee surgery, systemic lupus, asthma, hypertension, type 2 diabetes mellitus, and microvascular angina. ALLERGIES: Multiple and include Cipro, Lovenox, latex, Ritalin, vancomycin, and Compazine. SOCIAL HISTORY: Negative for smoking, alcohol, or substance abuse. FAMILY HISTORY: Noncontributory. MEDICATIONS: Prior to admission, reviewed and reconciled. REVIEW OF SYSTEMS: Outpatient echocardiogram revealed normal ejection fraction, diastolic dysfunction, and mild concentric hypertrophy with no significant valve disease or pulmonary hypertension. There is no history of flow-limiting coronary disease. She has chronic edema of legs. She has had asthma in the past. There is no history of thyroid disorder. Her diabetes is managed with diet and oral therapy. She has been on anti-lipid drugs in the past. There is no history of rheumatic heart disease, endocarditis, or cardiac arrhythmias. PHYSICAL EXAMINATION: VITAL SIGNS: Afebrile, blood pressure 160/98, heart rate 98, respirations 22. GENERAL: Moderately obese. NECK: Jugular venous pressure normal. LUNGS: Diminished breath sounds. No wheezing or rales. CARDIAC: Regular rhythm and rate. Distant S1 and S2 with no murmur. ABDOMEN: Soft and obese. EXTREMITIES: 1+ dependent edema with erythema. There is some bleeding over the toes of her foot bilaterally and the left foot has blistering. LABORATORY DATA: Reviewed. EKG revealed sinus rhythm with no acute abnormalities. IMPRESSION: 1. Noncardiac chest pain. 2. Fibromyalgia. 3. Systemic lupus with probable flare. 4. Bilateral lower extremity edema with cellulitis and blistering. 5. Hypertensive urgency. 6. Diabetes mellitus, poorly controlled as based on A1c level. PLAN: 1. Pain control. 2. Titrate and optimize antihypertensives. 3. Venous duplex scan to assess for possible DVT. 4. Diuresis based on clinical parameters. 5. Trend natriuretic peptide assay. 6. Additional therapy for diabetes. Shan Feliz M.D. DR: CHRIS JOB#: [id number] CC:
--- NOTE | 2020-04-20 09:14 | Discharge Summary ---
DATE OF ADMISSION: 04/13/2020 DATE OF DISCHARGE: 04/17/2020 ADMISSION DIAGNOSES: 1. Bilateral lower extremity cellulitis. 2. Possible ulcers. 3. History of . 4. Lupus flare. 5. Hypertension. 6. Asthma. 7. Obesity. 8. Diabetes, out of control. 9. Dehydration. 10. Severe . DISCHARGE DIAGNOSES: 1. Bilateral lower extremity cellulitis. 2. Possible ulcers. 3. History of . 4. Lupus flare. 5. Hypertension. 6. Asthma. 7. Obesity. 8. Diabetes, out of control. 9. Dehydration. 10. Severe . HOSPITAL COURSE: The patient is a very pleasant female, admitting with complaints of lower extremity , pain, swelling, and erythema of her feet . She was with cellulitis. She developed several wounds on her toe. She has had prior wounds episodes of Raynaud's. The patient had no evidence of ischemia. Her arteriovenous duplex scan is negative. She received intravenous antibiotics for cellulitis and upon discharge antibiotic therapy. She was able to ambulate because of pain in her feet. [facility] to [facility] IV [facility] therapy. She will be followed up there . DISCHARGE MEDICATIONS: Please see discharge medication list for discharge medications. DIET: Cardiac diet. ACTIVITIES: Ad-christina. FOLLOWUP: Followup in one to two days at skilled facility. Karthik Garvin M.D. DR: MAX JOB#: [id number] CC:
== END 2020-04-18 14:30 | DRG 603 ==
LOC: 4E 17:00
PROC: 02HV33Z Insertion of Infusion Device into Superior Vena Cava, Percutaneous Approach (ICD-10-PCS; principal; 2020-04-15)
DX: L03.116 Cellulitis of left lower limb (principal); Z68.43 Body mass index [BMI] 50.0-59.9, adult; L03.115 Cellulitis of right lower limb; S90.822A Blister (nonthermal), left foot, initial encounter; M32.9 Systemic lupus erythematosus, unspecified; E66.9 Obesity, unspecified; I73.00 Raynaud's syndrome without gangrene; S90.821A Blister (nonthermal), right foot, initial encounter; Z88.1 Allergy status to other antibiotic agents; Z88.8 Allergy status to other drugs, medicaments and biological substances; M79.7 Fibromyalgia; E11.65 Type 2 diabetes mellitus with hyperglycemia; E86.0 Dehydration; I10 Essential (primary) hypertension; F41.9 Anxiety disorder, unspecified; F32.9 Major depressive disorder, single episode, unspecified; F60.3 Borderline personality disorder; R07.89 Other chest pain; I16.0 Hypertensive urgency; L60.1 Onycholysis; I25.10 Atherosclerotic heart disease of native coronary artery without angina pectoris
CPT/HCPCS: 36415; 36569; 76937; 80048; 80053; 82962; 83036; 83880; 84484; 85025; 85651; 86039; 87040; 93925; 93970; J1815; S5561; U0002

== ENCOUNTER 2020-08-21 10:14 | Inpatient (IN) | payer MEDICARE, OTHER ==
[~2020-08-21] VITALS: Ht 154.9 cm; Wt 122.0 kg
[~2020-08-21 10:14] MED LIST changes: +GLUCOPHAGE500 MG ORAL; +HYDRALAZINE HCL25 M1 ORAL; +HYDROMORPHO2 MG/1 M5 IVP; +LEVEMIR FL100 UNIT/1 SUBQ; +RISPERDAL2 MG ORAL; +VANCOMYCIN750 MG/150 IVPB
[2020-08-21 16:45] VITALS: BP 181/105
--- NOTE | 2020-08-21 17:15 | NUR ---
NURSE NOTES: Pt came up to unit c/o 07/18 generalized pain and some difficulty breathing; lung sounds clear b/l and O2 saturation at 91% on RA; and A&Ox4. Oriented pt to room and informed her that I would contact MD for admission orders. Bed low and locked and call light within reach. Will continue to monitor.
[2020-08-21] MEDS ORDERED: HydrALAZINE 25mg tab ORAL PRN (18:00)
[2020-08-21] MEDS ORDERED: Levemir Flexpen SUBQ SCH (18:00)
[2020-08-21] MEDS ORDERED: SUMAtriptan 50mg tab ORAL PRN (18:00)
[2020-08-21] MEDS ORDERED: Albuterol ud Inhalation HHN PRN (18:00)
[2020-08-21] MEDS ORDERED: HYDROcodone/Acetamin 10/325 tab ORAL PRN (18:00)
[2020-08-21 18:30] VITALS: BP 166/101
[2020-08-21 18:50] LABS: EOSINOPHILS % (AUTO) 1.4 % (0.0-3.0); HEMATOCRIT 41.2 % (37.0-47.0); HEMOGLOBIN 13.1 G/DL (12.0-16.0); LYMPHOCYTES % (AUTO) 25.8 % (20.0-45.0); MEAN CORPUSCULAR VOLUME 84 FL (80-99); MONOCYTES % (AUTO) 4.8 % (1.0-10.0); NEUTROPHILS % (AUTO) 67.1 % (45.0-75.0); PLATELET COUNT 284 K/UL (150-450); RED BLOOD COUNT 4.92 M/UL (4.20-5.40); RED CELL DISTRIBUTION WIDTH 15.3 % (11.6-14.8)
[2020-08-21] MEDS: Docusate 100mg cap ORAL SCH (18:52)
[2020-08-21 19:08] LABS: ALBUMIN 3.4 G/DL (3.4-5.0); ALBUMIN/GLOBULIN RATIO 0.8 (1.0-2.7); BILIRUBIN,TOTAL 0.3 MG/DL (0.2-1.0); CALCIUM 8.9 MG/DL (8.5-10.1); CREATININE 1.3 MG/DL (0.55-1.30); POTASSIUM 4.3 MMOL/L (3.5-5.1)
--- NOTE | 2020-08-21 19:30 | NUR ---
NURSE NOTES: Patient in bed, alert and oriented x4, on room air. With complaint of generalized pain of 8-10/10 upon assessment. No IV access. Will try to obtain one. Instructed to use call light for assistance. Call light and needs in reach. Bed in lowest and lock engaged. Will monitor.
[2020-08-21 20:00] VITALS: BP 157/110
--- NOTE | 2020-08-21 20:15 | NUR ---
NURSE HAND-OFF: Important Events on Shift:Pt admitted during end of shift; needs IV access; swabbed pt for COVID-19. Patient Status: Stable Diet: CCHO (medium) Pending Orders: Breathing tx Pending Results/Labs: Rapid COVID-19 Pending MD notification:None Latest Vital Signs: Temperature 98.6 , Pulse 94 , B/P 166 /101 , Respiratory Rate 20 , O2 SAT 91 , Room Air, O2 Flow Rate Vital Sign Comment: BP elevated; administered Clonidine 0.1 mg PO. Latest Helm Fall Score: 15 Fall Risk: Low Risk Safety Measures: Call light Within Reach, Bed Alarm , Side Rails Side Rails x2, Bed position Low and Locked. Fall Precautions: Report given to PING Monge.
--- NOTE | 2020-08-21 20:25 | NUR ---
nurse's notes: received a negative covid result from [facility]; relayed to Mariposa FENG
[2020-08-21] MEDS: Albuterol ud Inhalation HHN SCH ×2 (20:30→23:45)
[2020-08-21] MEDS: HYDROmorphone 1mg/ml Carpuject IVP PRN (20:34)
[2020-08-21] MEDS: DiphenhydrAMINE 50mg/ml Inj IVP PRN (20:34)
[2020-08-21] MEDS: Solu-MEDROL 40mg Inj IVP SCH (21:13)
[2020-08-21] MEDS: Heparin 5000 units/ml inj SUBQ SCH (21:14)
[2020-08-21] MEDS: Levemir Flexpen SUBQ SCH (21:17)
--- NOTE | 2020-08-21 22:00 | NUR ---
NURSE NOTES: Belongings checked. Patient opted to keep valuables. IV access obtained on left upper arm by charge nurse. Medicated for pain as ordered.
[2020-08-22] VITALS (7 sets, daily range): BP systolic 132–158; BP diastolic 80–91
[2020-08-22] MEDS: DiphenhydrAMINE 50mg/ml Inj IVP PRN ×6 (00:27→21:30)
[2020-08-22] MEDS: HYDROmorphone 1mg/ml Carpuject IVP PRN ×6 (00:28→21:31)
--- NOTE | 2020-08-22 01:00 | NUR ---
NURSE NOTES: Patient is non compliant to diet. Explained the risks and benefits including the effect of Solu medrol.
[2020-08-22] MEDS: Albuterol ud Inhalation HHN SCH ×6 (03:17→23:32)
--- NOTE | 2020-08-22 05:57 | NUR ---
NURSE NOTES: Dr. Garvin made aware of patient's increased blood sugar and obtained order for high dose sliding scale.
[2020-08-22] MEDS ORDERED: metFORMIN 500mg tab ORAL SCH (06:30)
[2020-08-22] MEDS: Solu-MEDROL 40mg Inj IVP SCH (06:47)
[2020-08-22] MEDS: NovoLOG Insulin Flexpen SUBQ SCH ×4 (06:48→20:19)
--- NOTE | 2020-08-22 07:23 | NUR ---
NURSE HAND-OFF: Important Events on Shift: Increased blood sugar, Sliding scale started + metformin 850mg tid, pain mgt Patient Status: Diet: ccho medium Pending Orders: Pending Results/Labs: Pending MD notification: Latest Vital Signs: Temperature 98.0 , Pulse 96 , B/P 132 /90 , Respiratory Rate 18 , O2 SAT 94 , Room Air, O2 Flow Rate . Vital Sign Comment: Latest Helm Fall Score: 15 Fall Risk: Low Risk Safety Measures: Call light Within Reach, Bed Alarm , Side Rails Side Rails x2, Bed position Low and Locked. Fall Precautions: Yellow Socks Door Sign Patient Fall Education Report given to PING Moreno and Mr. Moncho RN.
--- NOTE | 2020-08-22 07:54 | NUR ---
NURSE NOTES: Received report from Mariposa FENG. Patient is awake and oriented, in no apparent distress but appears agitated, reporting generalized pain and requesting for pain medication when due, will administer when due. Patient updated on plan of care. Side rails upx2, bed low and locked, call light within reach.
--- NOTE | 2020-08-22 08:35 | Diagnostic Imaging Report ---
EXAM: XR Chest, 2 Views CLINICAL HISTORY: ASTHMA TECHNIQUE: Frontal and lateral views of the chest. COMPARISON: No relevant prior studies available. FINDINGS/IMPRESSION: No focal consolidation, pleural effusion, or pneumothorax. Cardiomegaly.
[2020-08-22] MEDS: Losartan 50mg tab ORAL SCH (08:38)
[2020-08-22] MEDS: Docusate 100mg cap ORAL SCH ×2 (08:38→17:23)
[2020-08-22] MEDS: Topiramate 25mg tab ORAL SCH (08:38)
[2020-08-22] MEDS: Aspirin Baby 81mg ORAL SCH (08:38)
[2020-08-22] MEDS: Heparin 5000 units/ml inj SUBQ SCH ×2 (08:39→20:17)
[2020-08-22] MEDS: Levemir Flexpen SUBQ SCH ×2 (08:40→20:18)
--- NOTE | 2020-08-22 09:01 | NUR ---
NURSE NOTES: Patient requested Benadryl cream for itching. Received order from Dr. Garvin, order read back and entered.
[2020-08-22] MEDS ORDERED: Solu-MEDROL 40mg Inj IVP SCH (10:00)
[2020-08-22] MEDS: Flonase Nasal Inhaler 16gm NASAL PRN (14:08)
[2020-08-22] MEDS: DiphenhydrAMINE & Zinc 28g Cream TOPIC PRN ×2 (14:08→21:31)
--- NOTE | 2020-08-22 19:16 | NUR ---
NURSE HAND-OFF: Important Events on Shift: Pain management, BS control Patient Status: stable Diet: CCHO Pending Orders: N/A Pending Results/Labs: N/A Pending MD notification: N/A Latest Vital Signs: Temperature 98.3 , Pulse 104 , B/P 148 /90 , Respiratory Rate 18 , O2 SAT 94 , Room Air, O2 Flow Rate . Vital Sign Comment: VS stable Latest Helm Fall Score: 35 Fall Risk: Medium Risk Safety Measures: Call light Within Reach, Bed Alarm , Side Rails Side Rails x2, Bed position Low and Locked. Fall Precautions: Yellow Socks Door Sign Patient Fall Education Report given to Rosendo FENG.
--- NOTE | 2020-08-22 19:27 | NUR ---
NURSE NOTES: received pt and report from PING Yen. pt alert and oriented x 4 with no s/s of acute distress and no co pain at the moment. IV site noted clean dry and intact and patent and saline locked. plan of care discussed. Addendum: 08/22/20 at 1935 by Rosendo Carpenter RN received pt and report from PING Feldman, not PING Yen.
--- NOTE | 2020-08-22 20:00 | History and Physical Report ---
DATE OF ADMISSION: 08/21/2020 CHIEF COMPLAINT: Shortness of breath, diabetes, out of control; and intractable pain. HISTORY OF PRESENT ILLNESS: The patient is a 55-year-old female. She has a history of lupus, hypertension, diabetes, and asthma, who presented from home with complaints of worsening shortness of breath, intractable pain, and elevated blood sugars. The patient denies any fevers or chills. She has had no cough, nausea, or vomiting. The patient has been taking her inhalers around the clock as well as oral steroids without any improvement. She has noted blood sugars in the 500s at home. In light of the elevated sugars, shortness of breath, and failure to respond to outpatient treatment, she is now admitted for further evaluation and care. PAST MEDICAL HISTORY: As above. PAST SURGICAL HISTORY: Includes ankle surgery and knee surgery. CURRENT MEDICATIONS: Reconciled and reviewed. ALLERGIES: Include Cipro, enoxaparin, ketorolac, latex, methylphenidate, plastic, Compazine, and vancomycin. FAMILY HISTORY: Noncontributory. SOCIAL HISTORY: Negative for tobacco, ethanol, or drugs. REVIEW OF SYSTEMS: GENERAL: No fevers or chills. HEENT: No headaches or visual changes. CARDIOPULMONARY: Positive shortness of breath and wheezing. No chest pain. GASTROINTESTINAL: No nausea or vomiting. GENITOURINARY: No urgency or frequency. MUSCULOSKELETAL: Positive joint pains. NEUROLOGIC: No history of seizures. PHYSICAL EXAMINATION: VITAL SIGNS: Temperature 98, pulse 97, respirations 18, and blood pressure 158/91. GENERAL: The patient is well developed, in no apparent distress. HEENT: Head is normocephalic and atraumatic. Sclerae anicteric. Oropharynx is clear. Mucous membranes are moist. NECK: Supple. HEART: Regular rate and rhythm. LUNGS: Scattered wheezes. ABDOMEN: Soft, nontender, and nondistended. EXTREMITIES: No clubbing, cyanosis, or edema. LABORATORY DATA: Sodium 134 and glucose is 351. White count was 6. Chest x-ray is clear. ASSESSMENT: This is a pleasant 55-year-old female with a history of lupus, hypertension, diabetes, obesity, history of neuropathy, and chronic pain admitted with complaints of shortness of breath secondary to asthma exacerbation. She also has uncontrolled diabetes and intractable pain. PLAN: 1. IV steroids around the clock every 8 hours. 2. Respiratory treatments as needed. 3. IV pain medication as needed. 4. DVT and stress ulcer prophylaxis. 5. Check a venous duplex of the legs. 6. Titrate diabetic regimen. Karthik Garvin M.D. DR: ZARINA JOB#: [id number] CC:
--- NOTE | 2020-08-22 23:40 | NUR ---
NURSE NOTES: pt found with tip of right toe bleeding related to peeling off dry skin. pressure applied, area cleaned with chlorhexidine swab, and wrapped with 2x2 gauze and paper tape. pt educated on importance of not scratching dry skin or peeling it away. pt verbalized understanding. Vital signs stable, pt in no acute distress and no co pain at the moment.
[2020-08-23] MEDS: Zolpidem 5mg tab ORAL PRN (01:09)
[2020-08-23 01:40] LABS: APPEARANCE,URINE CLEAR; BILIRUBIN, URINE NEGATIVE (NEGATIVE); COLOR,URINE PALE YELLOW; GLUCOSE, URINE (UA) 4+ (NEGATIVE); KETONES,URINE 1+ (NEGATIVE); LEUKOCYTE ESTERASE ,URINE NEGATIVE (NEGATIVE); NITRITE,URINE NEGATIVE (NEGATIVE); PH,URINE 5 (4.5-8.0); PROTEIN,URINE 2+ (NEGATIVE); UROBILINOGEN,URINE NORMAL MG/DL (0.0-1.0)
[2020-08-23] MEDS: DiphenhydrAMINE 50mg/ml Inj IVP PRN ×4 (03:09→17:24)
[2020-08-23] MEDS: HYDROmorphone 1mg/ml Carpuject IVP PRN ×4 (03:10→17:24)
[2020-08-23] MEDS: Albuterol ud Inhalation HHN SCH ×5 (03:14→22:59)
[2020-08-23 03:48] VITALS: BP 117/88
--- NOTE | 2020-08-23 03:50 | NUR ---
NURSE NOTES: pt ambulated to bathroom twice so far this shift with nurse assist. vitals are stable and she is in no acute distress. pain controlled with medication. she states breathing treatments with RT are helpful. breath sounds clear anteriorly but diminished in the posterior lower lobes, pt O2 saturations have been normal throughout the shift.
[2020-08-23] MEDS: DiphenhydrAMINE & Zinc 28g Cream TOPIC PRN (04:27)
[2020-08-23] MEDS: Flonase Nasal Inhaler 16gm NASAL PRN (04:34)
--- NOTE | 2020-08-23 04:37 | NUR ---
NURSE NOTES: pt complaining of generalized itching despite being given 50mg Benadryl at 0309. warm towels applied to itchy areas followed by benadryl cream. pt also with co itchyness in her eyes, flonase administered as ordered. will continue to monitor pt for itching.
[2020-08-23 05:21] VITALS: BP 152/86
--- NOTE | 2020-08-23 05:22 | NUR ---
NURSE NOTES: pt co sharp pain in the left clavicular neck area while she is at rest. pt in no acute distress otherwise. vitals signs taken and stable. pt stated it may be because i have not been getting enough sleep. breathing is normal and unlabored. pain medication will be given when due. warm compress applied to area. will follow up. Addendum: 08/23/20 at 0526 by Rosendo Carpenter RN she denies any SOB or difficulty breathing. O2 saturation is at 96%.
[2020-08-23] MEDS: NovoLOG Insulin Flexpen SUBQ SCH ×4 (05:54→20:55)
--- NOTE | 2020-08-23 06:45 | NUR ---
NURSE NOTES: IV site on KORY discontinued. multiple attempts made along with charge nurse to start new IV site but unsuccessful. endorsed to day shift nurse.
--- NOTE | 2020-08-23 07:20 | NUR ---
NURSE HAND-OFF: Important Events on Shift:pain and itch management, insulin coverage Patient Status: stable Diet: consistent carb Pending Orders: NA Pending Results/Labs:NA Pending MD notification:NA Latest Vital Signs: Temperature 98.0 , Pulse 102 , B/P 152 /86 , Respiratory Rate 18 , O2 SAT 96 , Room Air, O2 Flow Rate . Vital Sign Comment: stable through the shift Latest Helm Fall Score: 35 Fall Risk: Medium Risk Safety Measures: Call light Within Reach, Bed Alarm , Side Rails Side Rails x2, Bed position Low and Locked. Fall Precautions: Yellow Socks Door Sign Patient Fall Education Report given to PING Moreno.
[2020-08-23 08:00] VITALS: BP 157/102
--- NOTE | 2020-08-23 08:00 | NUR ---
NURSE NOTES: Received report from Rosendo FENG. Patient is awake and oriented, in no apparent distress, reporting generalized pain. Patient has no IV access at this time, will attempt. Patient updated on plan of care. Side rails upx2, bed low and locked, call light within reach. Dr. Garvin aware of elevated blood sugars.
[2020-08-23] MEDS ORDERED: Solu-MEDROL 40mg Inj IVP SCH (09:00)
[2020-08-23] MEDS: Losartan 50mg tab ORAL SCH (09:10)
[2020-08-23] MEDS: Topiramate 25mg tab ORAL SCH (09:10)
[2020-08-23] MEDS: Aspirin Baby 81mg ORAL SCH (09:10)
[2020-08-23] MEDS: Docusate 100mg cap ORAL SCH ×2 (09:10→17:01)
[2020-08-23] MEDS: Levemir Flexpen SUBQ SCH ×2 (09:12→20:55)
[2020-08-23] MEDS: Heparin 5000 units/ml inj SUBQ SCH ×2 (09:13→20:52)
--- NOTE | 2020-08-23 11:30 | General Progress Note ---
Subjective ROS Limited/Unobtainable: No Constitutional: Reports: malaise, weakness HEENT: Reports: no symptoms Cardiovascular: Reports: no symptoms Respiratory: Reports: cough, shortness of breath Gastrointestinal/Abdominal: Reports: no symptoms Genitourinary: Reports: no symptoms Neurologic/Psychiatric: Reports: tingling, tremors Endocrine: Reports: no symptoms Hematologic/Lymphatic: Reports: no symptoms Allergies: Coded Allergies: CIPROFLOXACIN (Verified Allergy, Severe, TWITCHING,ANAPHYLACTIC, 02/14/12) CIPROFLOXACIN HCL (Unverified Allergy, Severe, rash, 05/22/13) KETOROLAC (Verified Allergy, Severe, ITCHING,SWELLING, 12/31/11) KETOROLAC TROMETHAMINE (Unverified Allergy, Severe, rash, 05/22/13) LATEX (Verified Allergy, Severe, ITCHING,SWELLING,ANAPHYLACTIC, 02/14/12) PROCHLORPERAZINE (Verified Allergy, Severe, SWELLING,ITCHING, 12/31/11) PROCHLORPERAZINE EDISYLATE (Unverified Allergy, Severe, rash, 05/22/13) PROCHLORPERAZINE MALEATE (Unverified Allergy, Severe, rash, 05/22/13) ENOXAPARIN (Unverified Allergy, Unknown, Anaphylaxis, 09/16/14) METHYLPHENIDATE HCL (Verified Allergy, Unknown, 03/13/14) POTASSIUM CHLORIDE (Unverified Allergy, Unknown, 09/16/14) swollen tongue VANCOMYCIN (Verified Adverse Reaction, Intermediate, REDMANS SYNDROME, 04/24/12) PT IS FINE LONG VANCO INFUSED OVER 2 HRS Uncoded Allergies: PLASTIC TAPE (Allergy, Unknown, 09/05/11) All Systems: reviewed and negative except above Subjective severe pain. unable to get iv. BS still >300. no fevers or chills. decreased sob. c/o muscle spasms. Objective Last 24 Hour Vital Signs Date Time Temp Pulse Resp B/P (MAP) Pulse Ox O2 Delivery O2 Flow Rate FiO2 08/23/20 09:10 157/102 08/23/20 09:00 Room Air 08/23/20 08:00 98.5 94 18 157/102 (120) 93 08/23/20 05:21 98.0 102 18 152/86 (108) 96 08/23/20 03:48 97.6 92 19 117/88 (98) 96 08/23/20 03:15 99 18 99 Room Air 21 97 18 96 08/22/20 23:51 97.5 95 18 145/89 (107) 94 08/22/20 23:33 95 18 99 Room Air 21 92 18 96 08/22/20 20:00 97.7 95 18 134/85 (101) 94 08/22/20 19:38 Room Air 08/22/20 19:30 101 18 97 Room Air 21 99 18 93 08/22/20 16:00 98.3 104 18 148/90 (109) 94 08/22/20 15:59 94 18 99 Room Air 21 96 18 96 08/22/20 12:20 93 18 98 Room Air 21 94 18 96 08/22/20 12:00 98.7 97 18 158/91 (113) 97 Intake and Output 08/22/20 08/23/20 19:00 07:00 Intake Total 1000 ml 800 ml Balance 1000 ml 800 ml Intake Oral 1000 ml 800 ml # Voids 2 2 Laboratory Tests 08/22/20 11:39: POC Whole Blood Glucose 382H 08/22/20 16:32: POC Whole Blood Glucose 379H 08/22/20 20:12: POC Whole Blood Glucose 384H 08/23/20 01:16: Urine Color Pale yellow, Urine Appearance Clear, Urine pH 5, Urine Specific Grav ity 1.025, Urine Protein 2+H, Urine Glucose (UA) 4+H, Urine Ketones 1+H, Urine Blood Negative, Urine Nitrite Negative, Urine Bilirubin Negative, Urine Urobilinogen Normal, Urine Leukocyte Esterase Negative, Urine RBC 0-2, Urine WBC 0, Urine Squamous Epithelial Cells Few, Urine Bacteria Few 08/23/20 05:51: POC Whole Blood Glucose 350H Height (Feet): 5 Height (Inches): 1.00 Weight (Pounds): 269 General Appearance: WD/WN, alert Neck: supple Cardiovascular: normal rate, regular rhythm Respiratory/Chest: chest wall non-tender, lungs clear, normal breath sounds, no respiratory distress, no accessory muscle use Abdomen: normal bowel sounds, non tender, soft, no organomegaly Edema: no edema noted Arm (L), no edema noted Arm (R) 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, abnormal gait, alert, oriented x 3 Skin: normal pigmentation Assessment/Plan Problem List: (1) Asthma exacerbation ICD Codes: J45.901 - Unspecified asthma with (acute) exacerbation SNOMED: 214016175 (2) lupus flare (3) Diabetes mellitus type 2 in obese ICD Codes: E11.69 - Type 2 diabetes mellitus with other specified complication; E66.9 - Obesity, unspecified SNOMED: 00277227 (4) Hypertension ICD Codes: I10 - Essential (primary) hypertension SNOMED: 53121285 (5) COPD exacerbation ICD Codes: J44.1 - Chronic obstructive pulmonary disease with (acute) exacerbation SNOMED: 486106322 (6) Obese ICD Codes: E66.9 - Obesity, unspecified SNOMED: 319147869, 222588359 (7) Lupus ICD Codes: M32.9 - Systemic lupus erythematosus, unspecified SNOMED: 807641630 Status: stable, progressing Assessment/Plan: dc iv steroids increase insulin rx pain meds as needed o2 resp rx pt/ot eval muscle relaxants added Karthik Garvin MD Aug 23, 2020 11:30
[2020-08-23 12:00] VITALS: BP 157/98
--- NOTE | 2020-08-23 12:03 | NUR ---
NURSE NOTES: Received order from Dr. Garvin to change patient's scheduled breathing treatments to q8hrs. Order entered.
--- NOTE | 2020-08-23 12:43 | NUR ---
NURSE NOTES: Patient requested for RN to request an order for Ativan for agitation. Contacted Dr. Garvin, order received and entered.
--- NOTE | 2020-08-23 14:02 | NUR ---
CASE MANAGEMENT:INITIAL REVIEW 55 YR OLD FEMALE PRESENTED DIRECT ADMIT BY CC;PAIN. SOB. HYPERGLYCEMIA. SI;ASTHMA EXACERBATION. HYPERGLYCEMIA. 98.6 94 20 181/105 91% ON RA NA 134 BG 351 UA+ PROTEIN, GLUCOSE, KETONES RAPID COVID ~ NEGATIVE CXR ~ No focal consolidation, pleural effusion, or pneumothorax. Cardiomegaly. IS;CLONIDINE PO NORCO PO DILAUDID IV BENADRYL IV PROVENTIL HHN LEVEMIR INSULIN SUBQ REGLAN PO HEPARIN SUBQ SOLU-MEDROL IV ADMITTED TO MED SURG 08/22/20 @ 1300 MED SURG STATUS DCP;FROM HOME
--- NOTE | 2020-08-23 14:24 | NUR ---
Hand-off: Report given to Ervin FENG.
--- NOTE | 2020-08-23 14:50 | NUR ---
NURSE NOTES: Received report from PING Moreno. Pt awake in bed, alert and oriented, able to make needs known. No acute distress noted. Call light within reach. Will continue to monitor.
[2020-08-23 16:00] VITALS: BP 147/96
--- NOTE | 2020-08-23 19:15 | NUR ---
NURSE NOTES: received pt and report from Ana FENG. pt alert and oriented x 4 with no acute sign and symptoms of distress and with no co of pain at the moment. IV site not patent. will attempt to start new one. plan of care discussed.
--- NOTE | 2020-08-23 19:26 | NUR ---
NURSE HAND-OFF: Important Events on Shift:[c/o Pain and itching] Patient Status: [stable] Diet: [CCHO] Pending Orders: [] Pending Results/Labs:[] Pending MD notification:[] Latest Vital Signs: Temperature 97.7 , Pulse 93 , B/P 147 /96 , Respiratory Rate 18 , O2 SAT 94 , Room Air, O2 Flow Rate . Vital Sign Comment: [stable] Latest Helm Fall Score: 35 Fall Risk: Medium Risk Safety Measures: Call light Within Reach, Bed Alarm , Side Rails Side Rails x2, Bed position Low and Locked. Fall Precautions: Yellow Socks Door Sign Patient Fall Education Report given to [RosendoRN].
[2020-08-23 20:00] VITALS: BP 104/71
[2020-08-24] VITALS (7 sets, daily range): BP systolic 123–174; BP diastolic 65–99
--- NOTE | 2020-08-24 00:05 | NUR ---
NURSE NOTES: multiple attempt have been made to start an IV access with no success. Dr Garvin notified. Received orders to keep same dose for Dilaudid and Benadryl but to add Subcutaneous route for dilaudid and PO route for benadryl if no IV access present. will input orders and carry out.
[2020-08-24] MEDS: DiphenhydrAMINE 50mg/ml Inj IVP PRN (00:15)
[2020-08-24] MEDS: HYDROmorphone 1mg/ml Carpuject IVP PRN (00:16)
--- NOTE | 2020-08-24 01:00 | NUR ---
New IV site inserted on 08/23/2020 at 2345. Dilaudid and Benadryl administered through site, no problem encountered during administration, upon reassessment, left hand swollen and red. Left hand elevated and warm pack applied. will continue to monitor.
[2020-08-24] MEDS: Zolpidem 5mg tab ORAL PRN (02:00)
--- NOTE | 2020-08-24 03:30 | NUR ---
NURSE NOTES: pt alert and oriented x 4. pt able to sleep prior to vitals taken. she is easily arousable. she has no co pain at the moment and she has no s/s of acute distress. swelling on left hand has begun to subside and redness is less. pt denies pain in the left hand.
[2020-08-24] MEDS: NovoLOG Insulin Flexpen SUBQ SCH ×4 (05:40→21:14)
[2020-08-24] MEDS: Albuterol ud Inhalation HHN SCH ×3 (06:59→23:16)
--- NOTE | 2020-08-24 07:29 | NUR ---
NURSE HAND-OFF: Important Events on Shift:pain and itch management, multiple unsuccessful IV insertion attempts Patient Status: stable Diet: consistent carb Pending Orders: NA Pending Results/Labs:NA Pending MD notification:NA Latest Vital Signs: Temperature 97.9 , Pulse 100 , B/P 141 /86 , Respiratory Rate 19 , O2 SAT 95 , Room Air, O2 Flow Rate . Vital Sign Comment: stable through the shift Latest Helm Fall Score: 35 Fall Risk: Medium Risk Safety Measures: Call light Within Reach, Bed Alarm , Side Rails Side Rails x2, Bed position Low and Locked. Fall Precautions: Yellow Socks Door Sign Patient Fall Education Report given to PING Madrigal.
--- NOTE | 2020-08-24 07:45 | NUR ---
NURSE NOTES: Pt sitting at edge of bed w/bed in lowest position and call light within reach. Pt A&Ox4, VSS, and in no apparent distress. Pt has no IV access and skin is intact. Pt requesting SQ pain med but I explained that it is not yet due; pt verbalized understanding. Will continue to monitor.
[2020-08-24] MEDS: Aspirin Baby 81mg ORAL SCH (08:40)
[2020-08-24] MEDS: Topiramate 25mg tab ORAL SCH (08:41)
[2020-08-24] MEDS: Docusate 100mg cap ORAL SCH ×2 (08:42→17:21)
[2020-08-24] MEDS: Losartan 50mg tab ORAL SCH (08:43)
[2020-08-24] MEDS: Levemir Flexpen SUBQ SCH ×2 (08:44→21:14)
[2020-08-24] MEDS: Heparin 5000 units/ml inj SUBQ SCH ×2 (08:44→20:52)
[2020-08-24] MEDS ORDERED: Omnipaque-300 100ml vial INJ ONE (09:00)
--- NOTE | 2020-08-24 09:06 | General Progress Note ---
Subjective ROS Limited/Unobtainable: No Constitutional: Reports: malaise, weakness HEENT: Reports: no symptoms Cardiovascular: Reports: chest pain Respiratory: Reports: cough, shortness of breath Gastrointestinal/Abdominal: Reports: no symptoms Genitourinary: Reports: no symptoms Neurologic/Psychiatric: Reports: anxiety, depressed, emotional problems Endocrine: Reports: no symptoms Hematologic/Lymphatic: Reports: no symptoms Allergies: Coded Allergies: CIPROFLOXACIN (Verified Allergy, Severe, TWITCHING,ANAPHYLACTIC, 02/14/12) CIPROFLOXACIN HCL (Unverified Allergy, Severe, rash, 05/22/13) KETOROLAC (Verified Allergy, Severe, ITCHING,SWELLING, 12/31/11) KETOROLAC TROMETHAMINE (Unverified Allergy, Severe, rash, 05/22/13) LATEX (Verified Allergy, Severe, ITCHING,SWELLING,ANAPHYLACTIC, 02/14/12) PROCHLORPERAZINE (Verified Allergy, Severe, SWELLING,ITCHING, 12/31/11) PROCHLORPERAZINE EDISYLATE (Unverified Allergy, Severe, rash, 05/22/13) PROCHLORPERAZINE MALEATE (Unverified Allergy, Severe, rash, 05/22/13) ENOXAPARIN (Unverified Allergy, Unknown, Anaphylaxis, 09/16/14) METHYLPHENIDATE HCL (Verified Allergy, Unknown, 03/13/14) POTASSIUM CHLORIDE (Unverified Allergy, Unknown, 09/16/14) swollen tongue VANCOMYCIN (Verified Adverse Reaction, Intermediate, REDMANS SYNDROME, 04/24/12) PT IS FINE LONG VANCO INFUSED OVER 2 HRS Uncoded Allergies: PLASTIC TAPE (Allergy, Unknown, 09/05/11) All Systems: reviewed and negative except above Subjective c/o chest pain. no fevers or chills. no sob. tolerating po. decreased wheezing. c/o angel LE pain. bP and BS still high Objective Last 24 Hour Vital Signs Date Time Temp Pulse Resp B/P (MAP) Pulse Ox O2 Delivery O2 Flow Rate FiO2 08/24/20 08:43 174/99 08/24/20 08:41 174/99 08/24/20 08:00 98.5 96 20 174/99 (124) 95 08/24/20 03:29 97.9 100 19 141/86 (104) 95 08/24/20 00:00 98.5 91 18 144/80 (101) 95 08/23/20 22:59 88 18 100 Room Air 21 84 18 99 08/23/20 21:00 Room Air 08/23/20 20:00 98.6 98 19 104/71 (82) 95 08/23/20 17:54 97.7 08/23/20 16:37 93 18 99 Room Air 21 95 16 96 08/23/20 16:00 97.7 93 18 147/96 (113) 94 08/23/20 12:00 97.7 97 18 157/98 (117) 93 08/23/20 11:51 96 16 98 Room Air 21 98 14 95 08/23/20 09:10 157/102 Intake and Output 08/23/20 08/24/20 19:00 07:00 Intake Total 1050 ml 800 ml Balance 1050 ml 800 ml Intake Oral 1050 ml 800 ml # Voids 2 2 Laboratory Tests 08/23/20 11:35: POC Whole Blood Glucose 262H 08/23/20 16:52: POC Whole Blood Glucose [Pending] 08/23/20 20:47: POC Whole Blood Glucose 197H 08/24/20 05:12: POC Whole Blood Glucose 289H Height (Feet): 5 Height (Inches): 1.00 Weight (Pounds): 269 General Appearance: WD/WN, alert EENT: PERRL/EOMI Neck: non-tender Cardiovascular: normal peripheral pulses, normal rate, regular rhythm Respiratory/Chest: chest wall non-tender, lungs clear, normal breath sounds, no respiratory distress Abdomen: normal bowel sounds, non tender, soft, no organomegaly Extremities: normal range of motion Edema: no edema noted Arm (L), no edema noted Arm (R) Edema: trace edema 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, alert, oriented x 3, responsive Skin: normal pigmentation Assessment/Plan Problem List: (1) Asthma exacerbation ICD Codes: J45.901 - Unspecified asthma with (acute) exacerbation SNOMED: 616849460 (2) lupus flare (3) Diabetes mellitus type 2 in obese ICD Codes: E11.69 - Type 2 diabetes mellitus with other specified complication; E66.9 - Obesity, unspecified SNOMED: 99474021 (4) Hypertension ICD Codes: I10 - Essential (primary) hypertension SNOMED: 76136743 (5) COPD exacerbation ICD Codes: J44.1 - Chronic obstructive pulmonary disease with (acute) exacerbation SNOMED: 959549152 (6) Obese ICD Codes: E66.9 - Obesity, unspecified SNOMED: 554463709, 283784089 (7) Lupus ICD Codes: M32.9 - Systemic lupus erythematosus, unspecified SNOMED: 113947370 Status: stable, progressing Assessment/Plan: off steroids increase insulin rx pain meds as needed o2 resp rx pt/ot eval muscle relaxants added ct chest r/o PE check venous duplex r/o dvt Karthik Garvin MD Aug 24, 2020 09:06
[2020-08-24] MEDS: LORazepam 1mg tab ORAL PRN ×2 (10:10→23:33)
--- NOTE | 2020-08-24 13:02 | NUR ---
CASE MANAGEMENT:REVIEW SI;ASTHMA AND COPD EXACERBATION. LUPUS FLARE. HTN. DM. INTRACTABLE PAIN. 98.5 97 20 174/99 95% ON RA BG 289 IS;DILAUDID SUBQ Q4 PRN BENADRYL PO Q4 PRN INSULIN LEVEMIR SUBQ Q12 ATIVAN PO TID PRN PROVENTIL HHN Q8 PROTONIX PO QD ASA PO QD METFORMIN PO TID INSULIN NOVOLOG SUBQ QID HEPARIN SUBQ Q12 HYDRALAZINE PO REGLAN PO Q12 CLONIDINE PO MED SURG STATUS DCP;FROM HOME PLAN; VENOUS DUPLEX FOR DVT R/O CHEST CT FOR PE R/O
--- NOTE | 2020-08-24 13:55 | Diagnostic Imaging Report ---
Indication:Leg pain and swelling Technique: Grayscale and duplex Doppler imaging of the veins in both lower extremities performed in real time utilizing compression and augmentation. Comparison: Venous Doppler study of the lower extremity dated 04/14/2020 Findings: Duplex Doppler interrogation of the veins in both lower extremity is performed from the common femoral vein to the popliteal vein. Normal venous compressibility demonstrated throughout. No thrombus identified. Waveform analysis shows good respiratory phasicity and augmentation. IMPRESSION: No evidence of deep venous thrombosis involving the lower extremities.
--- NOTE | 2020-08-24 19:12 | NUR ---
NURSE HAND-OFF: Important Events on Shift: Pt still requiring pain meds around the clock for generalized/left shoulder pain; pt placed on O2 NC 2L PRN; venous duplex of BLE negative Patient Status: Stable Diet: CCHO (medium) Pending Orders: CTA Chest c/contrast (postponed d/t no IV access) Pending Results/Labs: None Pending MD notification: None Latest Vital Signs: Temperature 97.4 , Pulse 93 , B/P 149 /82 , Respiratory Rate 20 , O2 SAT 95 , Room Air, O2 Flow Rate Vital Sign Comment: Stable Latest Helm Fall Score: 35 Fall Risk: Medium Risk Safety Measures: Call light Within Reach, Bed Alarm , Side Rails Side Rails x2, Bed position Low and Locked. Fall Precautions: Yellow Socks Door Sign Patient Fall Education Report given to PING Guevara.
--- NOTE | 2020-08-24 19:30 | NUR ---
NURSE NOTES: Received report & pt from PING Madrigal. Pt in bed, a&ox4, in room air. No s/s of acute distress, no c/o pain at this time. On O2 via NC @ 2LPM. No IV access. Plan of care discussed.
[2020-08-24] MEDS: DiphenhydrAMINE & Zinc 28g Cream TOPIC PRN (22:31)
[2020-08-24] MEDS: Flonase Nasal Inhaler 16gm NASAL PRN (22:31)
[2020-08-25] MEDS: NovoLOG Insulin Flexpen SUBQ SCH ×4 (06:07→20:38)
--- NOTE | 2020-08-25 06:30 | NUR ---
NURSE HAND-OFF: Important Events on Shift:PICC/Midline insertion; pain & itching management Patient Status: stable Diet: ccho (m) Pending Orders: CT of chest with contrast Pending Results/Labs:none Pending MD notification:none Latest Vital Signs: Temperature 98.7 , Pulse 89 , B/P 125 /68 , Respiratory Rate 19 , O2 SAT 93 , Room Air, O2 Flow Rate 2.0 . Vital Sign Comment: none Latest Helm Fall Score: 35 Fall Risk: Medium Risk Safety Measures: Call light Within Reach, Bed Alarm , Side Rails Side Rails x2, Bed position Low and Locked. Fall Precautions: Yellow Socks Door Sign Patient Fall Education Report given to . Addendum: 08/25/20 at 0725 by Paola Li RN Report given to PING Chanel.
--- NOTE | 2020-08-25 07:40 | NUR ---
NURSE NOTES: Received report from PING Guevara. Rounding done with outgoing nurse. Pt a/o x 4 , having breakfast. No SOB noted. Discussed plan of care today. Bed in lowest position, call light within reach. Will continue to monitor.
[2020-08-25] MEDS: Albuterol ud Inhalation HHN SCH ×3 (07:56→22:46)
[2020-08-25 08:00] VITALS: BP 143/88
[2020-08-25] MEDS: Losartan 50mg tab ORAL SCH (09:03)
[2020-08-25] MEDS: Aspirin Baby 81mg ORAL SCH (09:04)
[2020-08-25] MEDS: Topiramate 25mg tab ORAL SCH (09:04)
[2020-08-25] MEDS: Docusate 100mg cap ORAL SCH ×2 (09:04→17:03)
[2020-08-25] MEDS: Heparin 5000 units/ml inj SUBQ SCH ×2 (09:05→20:37)
[2020-08-25] MEDS: Levemir Flexpen SUBQ SCH ×2 (09:07→20:37)
--- NOTE | 2020-08-25 09:40 | General Progress Note ---
Subjective ROS Limited/Unobtainable: No Constitutional: Reports: malaise, weakness HEENT: Reports: no symptoms Cardiovascular: Reports: chest pain Respiratory: Reports: cough, shortness of breath Gastrointestinal/Abdominal: Reports: no symptoms Genitourinary: Reports: no symptoms Neurologic/Psychiatric: Reports: anxiety, depressed Endocrine: Reports: no symptoms Hematologic/Lymphatic: Reports: no symptoms Allergies: Coded Allergies: CIPROFLOXACIN (Verified Allergy, Severe, TWITCHING,ANAPHYLACTIC, 02/14/12) CIPROFLOXACIN HCL (Unverified Allergy, Severe, rash, 05/22/13) KETOROLAC (Verified Allergy, Severe, ITCHING,SWELLING, 12/31/11) KETOROLAC TROMETHAMINE (Unverified Allergy, Severe, rash, 05/22/13) LATEX (Verified Allergy, Severe, ITCHING,SWELLING,ANAPHYLACTIC, 02/14/12) PROCHLORPERAZINE (Verified Allergy, Severe, SWELLING,ITCHING, 12/31/11) PROCHLORPERAZINE EDISYLATE (Unverified Allergy, Severe, rash, 05/22/13) PROCHLORPERAZINE MALEATE (Unverified Allergy, Severe, rash, 05/22/13) ENOXAPARIN (Unverified Allergy, Unknown, Anaphylaxis, 09/16/14) METHYLPHENIDATE HCL (Verified Allergy, Unknown, 03/13/14) POTASSIUM CHLORIDE (Unverified Allergy, Unknown, 09/16/14) swollen tongue VANCOMYCIN (Verified Adverse Reaction, Intermediate, REDMANS SYNDROME, 04/24/12) PT IS FINE LONG VANCO INFUSED OVER 2 HRS Uncoded Allergies: PLASTIC TAPE (Allergy, Unknown, 09/05/11) All Systems: reviewed and negative except above Subjective c/o chest pain and sob. on o2 at 2L. CTA chest not done due to poor access. awaiting midline placement continued generalized pain. no fever or chills. no bleeding. venous duplex pending. Objective Last 24 Hour Vital Signs Date Time Temp Pulse Resp B/P (MAP) Pulse Ox O2 Delivery O2 Flow Rate FiO2 08/25/20 09:03 143/88 08/25/20 08:00 98.4 89 20 143/88 (106) 95 08/25/20 02:54 93 Nasal Cannula 2.0 28 08/25/20 02:47 88 18 98 Nasal Cannula 2.0 28 86 18 92 11/16/20 23:33 89 19 125/68 94 08/24/20 23:21 98.7 89 19 125/68 (87) 94 08/24/20 23:17 89 18 100 Nasal Cannula 2.0 28 91 18 93 08/24/20 21:45 Room Air 08/24/20 20:00 98.4 93 18 123/65 (84) 94 08/24/20 16:30 97.4 94 20 149/82 (104) 95 93 08/24/20 15:30 90 18 99 Room Air 21 89 18 94 08/24/20 12:00 98.0 94 20 145/91 (109) 99 08/24/20 10:10 96 20 174/99 95 Intake and Output 08/24/20 08/25/20 19:00 07:00 Intake Total 800 ml 820 ml Balance 800 ml 820 ml Intake Oral 800 ml 820 ml # Voids 3 2 Laboratory Tests 08/24/20 11:50: POC Whole Blood Glucose 166H 08/24/20 17:14: POC Whole Blood Glucose 189H 08/24/20 20:54: POC Whole Blood Glucose 196H 08/25/20 05:13: POC Whole Blood Glucose 149H 08/25/20 09:01: POC Whole Blood Glucose [Pending] Height (Feet): 5 Height (Inches): 1.00 Weight (Pounds): 269 Objective General Appearance: WD/WN, alert EENT: PERRL/EOMI Neck: non-tender Cardiovascular: normal peripheral pulses, normal rate, regular rhythm Respiratory/Chest: chest wall non-tender, lungs clear, normal breath sounds, no respiratory distress Abdomen: normal bowel sounds, non tender, soft, no organomegaly Extremities: normal range of motion Edema: no edema noted Arm (L), no edema noted Arm (R) Edema: trace edema 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, alert, oriented x 3, responsive Skin: normal pigmentation Assessment/Plan Problem List: (1) Asthma exacerbation ICD Codes: J45.901 - Unspecified asthma with (acute) exacerbation SNOMED: 318921469 (2) lupus flare (3) Diabetes mellitus type 2 in obese ICD Codes: E11.69 - Type 2 diabetes mellitus with other specified complication; E66.9 - Obesity, unspecified SNOMED: 33680016 (4) Hypertension ICD Codes: I10 - Essential (primary) hypertension SNOMED: 36925626 (5) COPD exacerbation ICD Codes: J44.1 - Chronic obstructive pulmonary disease with (acute) exacerbation SNOMED: 469848665 (6) Obese ICD Codes: E66.9 - Obesity, unspecified SNOMED: 130992484, 292606490 (7) Lupus ICD Codes: M32.9 - Systemic lupus erythematosus, unspecified SNOMED: 311692684 Status: stable, progressing Assessment/Plan: off steroids increase insulin rx pain meds as needed o2 resp rx pt/ot eval muscle relaxants added midline ct chest r/o PE check venous duplex r/o dvt Karthik Garvin MD Aug 25, 2020 09:40
[2020-08-25] MEDS: DiphenhydrAMINE 50mg/ml Inj IVP PRN ×3 (10:47→20:36)
[2020-08-25] MEDS: HYDROmorphone 1mg/ml Carpuject IVP PRN ×3 (10:48→20:36)
--- NOTE | 2020-08-25 11:26 | NUR ---
NURSE NOTES: emission technician came and inserted IV on Lt AC. Pt came down to check chest CT but they could not inject contrast because blood did not return. Pt came up to the unit. No resistance noted when I flush IV line. No swelling noted for IV line. Pt did not c/o any discomfort when I flush. Dr. Garvin is aware that we could not get PICC line and Chest CT today.
[2020-08-25 12:00] VITALS: BP 109/59
[2020-08-25] MEDS: LORazepam 1mg tab ORAL PRN (13:27)
--- NOTE | 2020-08-25 13:53 | NUR ---
NURSE NOTES: PICC line consent obtained from patient.
[2020-08-25 16:00] VITALS: BP 127/68
--- NOTE | 2020-08-25 18:45 | NUR ---
NURSE HAND-OFF: Important Events on Shift: pending CT chest Patient Status: stable Diet: CCHO(M) Pending Orders: CT chest Pending Results/Labs:n/a Pending MD notification:n/a Latest Vital Signs: Temperature 97.8 , Pulse 89 , B/P 127 /68 , Respiratory Rate 20 , O2 SAT 95 , Room Air, O2 Flow Rate 2.0 . Vital Sign Comment: stable Latest Helm Fall Score: 35 Fall Risk: Medium Risk Safety Measures: Call light Within Reach, Bed Alarm , Side Rails Side Rails x2, Bed position Low and Locked. Fall Precautions: Yellow Socks Door Sign Patient Fall Education Report given to PING Guevara.
--- NOTE | 2020-08-25 19:30 | NUR ---
NURSE NOTES: Received report & pt from PING Chanel. Pt in bed, a&ox4, in room air. No s/s of acute distress & c/o 710 pain at this time. Will give pain med when due & pt verbalized understanding. On O2 via NC @ 2LPM. IV site intact & S/L'd. Plan of care discussed.
[2020-08-25 20:59] VITALS: BP 129/75
[2020-08-25 23:26] VITALS: BP 154/94
[2020-08-26] MEDS: HYDROmorphone 1mg/ml Carpuject IVP PRN ×4 (00:38→14:13)
[2020-08-26] MEDS: DiphenhydrAMINE 50mg/ml Inj IVP PRN ×6 (00:38→22:37)
[2020-08-26] MEDS: LORazepam 1mg tab ORAL PRN ×2 (03:40→21:23)
[2020-08-26 04:06] VITALS: BP 128/67
[2020-08-26] MEDS: NovoLOG Insulin Flexpen SUBQ SCH ×4 (06:18→21:31)
[2020-08-26] MEDS: DiphenhydrAMINE & Zinc 28g Cream TOPIC PRN (06:19)
[2020-08-26] MEDS: Flonase Nasal Inhaler 16gm NASAL PRN (06:19)
--- NOTE | 2020-08-26 06:51 | NUR ---
NURSE HAND-OFF: Important Events on Shift:pain management Patient Status: stable Diet: ccho (m) Pending Orders: CTA of chest with contrast & PICC/midline placement Pending Results/Labs:none Pending MD notification:none Latest Vital Signs: Temperature 99.0 , Pulse 88 , B/P 128 /67 , Respiratory Rate 18 , O2 SAT 96 , Nasal Cannula, O2 Flow Rate 2.0 . Vital Sign Comment: Latest Helm Fall Score: 35 Fall Risk: Medium Risk Safety Measures: Call light Within Reach, Bed Alarm , Side Rails Side Rails x2, Bed position Low and Locked. Fall Precautions: Yellow Socks Door Sign Patient Fall Education Report given to . Addendum: 08/26/20 at 0736 by Paola Li RN Report given to PING Pearson.
--- NOTE | 2020-08-26 07:22 | NUR ---
pNURSE NOTES: Report received from Paola FENG, rounds made. Patient sitting resting upright in bed. AOx4, calm, respirations even/unlabored on O2 2LNC. Skin warm, dry, normal color. LAC saline lock intact, site asymptomatic. Tolerating breakfast. No NV. Complains of pain to left shoulder and lower extremities, will medicate as ordered, will provide ice pack/heating compress for additional pain relief, patient agrees to try. Bed in lowest position, call light in reach, will continue to monitor.
--- NOTE | 2020-08-26 07:25 | General Progress Note ---
Subjective ROS Limited/Unobtainable: No Constitutional: Reports: malaise, weakness HEENT: Reports: no symptoms Cardiovascular: Reports: chest pain Respiratory: Reports: cough, shortness of breath Gastrointestinal/Abdominal: Reports: no symptoms Genitourinary: Reports: no symptoms Neurologic/Psychiatric: Reports: anxiety, depressed, pre-existing deficit Endocrine: Reports: no symptoms Hematologic/Lymphatic: Reports: no symptoms Allergies: Coded Allergies: CIPROFLOXACIN (Verified Allergy, Severe, TWITCHING,ANAPHYLACTIC, 02/14/12) CIPROFLOXACIN HCL (Unverified Allergy, Severe, rash, 05/22/13) KETOROLAC (Verified Allergy, Severe, ITCHING,SWELLING, 12/31/11) KETOROLAC TROMETHAMINE (Unverified Allergy, Severe, rash, 05/22/13) LATEX (Verified Allergy, Severe, ITCHING,SWELLING,ANAPHYLACTIC, 02/14/12) PROCHLORPERAZINE (Verified Allergy, Severe, SWELLING,ITCHING, 12/31/11) PROCHLORPERAZINE EDISYLATE (Unverified Allergy, Severe, rash, 05/22/13) PROCHLORPERAZINE MALEATE (Unverified Allergy, Severe, rash, 05/22/13) ENOXAPARIN (Unverified Allergy, Unknown, Anaphylaxis, 09/16/14) METHYLPHENIDATE HCL (Verified Allergy, Unknown, 03/13/14) POTASSIUM CHLORIDE (Unverified Allergy, Unknown, 09/16/14) swollen tongue VANCOMYCIN (Verified Adverse Reaction, Intermediate, REDMANS SYNDROME, 04/24/12) PT IS FINE LONG VANCO INFUSED OVER 2 HRS Uncoded Allergies: PLASTIC TAPE (Allergy, Unknown, 09/05/11) All Systems: reviewed and negative except above Subjective still with left sided CP. difficult access. stable sob. on o2 at 2L. CTA chest not done due to poor access. awaiting midline placement continued generalized pain. no fever or chills. no bleeding. venous duplex negative Objective Last 24 Hour Vital Signs Date Time Temp Pulse Resp B/P (MAP) Pulse Ox O2 Delivery O2 Flow Rate FiO2 08/26/20 04:10 88 18 128/67 96 08/26/20 04:06 99.0 88 18 128/67 (87) 96 08/26/20 03:40 89 16 154/94 94 08/25/20 23:26 98.4 89 16 154/94 (114) 94 08/25/20 22:46 92 Nasal Cannula 2.0 28 08/25/20 22:46 93 18 95 Nasal Cannula 2.0 28 89 18 92 08/25/20 21:07 Nasal Cannula 2.0 08/25/20 20:59 98.3 89 16 129/75 (93) 93 08/25/20 16:00 97.8 89 20 127/68 (87) 95 08/25/20 15:41 86 18 98 Nasal Cannula 2.0 28 89 18 95 08/25/20 15:40 95 Nasal Cannula 2.0 28 08/25/20 13:57 95 20 109/59 95 08/25/20 13:27 95 20 109/59 95 08/25/20 12:00 98.6 95 20 109/59 (76) 95 08/25/20 09:03 143/88 08/25/20 09:00 Room Air 08/25/20 08:06 95 Room Air 08/25/20 08:06 88 18 98 Room Air 21 89 18 95 08/25/20 08:00 98.4 89 20 143/88 (106) 95 Intake and Output 08/25/20 08/26/20 19:00 07:00 Intake Total 1080 ml 800 ml Balance 1080 ml 800 ml Intake Oral 1080 ml 800 ml # Voids 3 3 Laboratory Tests 08/25/20 09:01: POC Whole Blood Glucose [Pending] 08/25/20 11:39: POC Whole Blood Glucose [Pending] 08/25/20 16:57: POC Whole Blood Glucose 219H 08/25/20 20:27: POC Whole Blood Glucose 179H 08/26/20 06:15: POC Whole Blood Glucose 158H Height (Feet): 5 Height (Inches): 1.00 Weight (Pounds): 269 Objective General Appearance: WD/WN, alert EENT: PERRL/EOMI Neck: non-tender Cardiovascular: normal peripheral pulses, normal rate, regular rhythm Respiratory/Chest: chest wall non-tender, lungs clear, normal breath sounds, no respiratory distress Abdomen: normal bowel sounds, non tender, soft, no organomegaly Extremities: normal range of motion Edema: no edema noted Arm (L), no edema noted Arm (R) Edema: trace edema 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, alert, oriented x 3, responsive Skin: normal pigmentation Assessment/Plan Problem List: (1) Asthma exacerbation ICD Codes: J45.901 - Unspecified asthma with (acute) exacerbation SNOMED: 923922531 (2) lupus flare (3) Diabetes mellitus type 2 in obese ICD Codes: E11.69 - Type 2 diabetes mellitus with other specified complication; E66.9 - Obesity, unspecified SNOMED: 17403402 (4) Hypertension ICD Codes: I10 - Essential (primary) hypertension SNOMED: 45870971 (5) COPD exacerbation ICD Codes: J44.1 - Chronic obstructive pulmonary disease with (acute) ex acerbation SNOMED: 921433796 (6) Obese ICD Codes: E66.9 - Obesity, unspecified SNOMED: 778047974, 963338428 (7) Lupus ICD Codes: M32.9 - Systemic lupus erythematosus, unspecified SNOMED: 972777339 Status: stable, progressing Assessment/Plan: off steroids increase insulin rx pain meds as needed o2 resp rx pt/ot eval muscle relaxants added midline ct chest r/o PE check venous duplex r/o dvt Karthik Garvin MD Aug 26, 2020 07:25
[2020-08-26] MEDS: Albuterol ud Inhalation HHN SCH ×3 (07:52→23:23)
[2020-08-26 08:00] VITALS: BP 148/79
[2020-08-26] MEDS: Losartan 50mg tab ORAL SCH (08:44)
[2020-08-26] MEDS: Topiramate 25mg tab ORAL SCH (08:45)
[2020-08-26] MEDS: Docusate 100mg cap ORAL SCH ×2 (08:45→17:28)
[2020-08-26] MEDS: Aspirin Baby 81mg ORAL SCH (08:45)
[2020-08-26] MEDS: Heparin 5000 units/ml inj SUBQ SCH ×2 (08:46→21:27)
[2020-08-26] MEDS: Levemir Flexpen SUBQ SCH ×2 (08:46→21:30)
[2020-08-26] MEDS ORDERED: Heparin1,000 units/500ml Premix(Conc:2 units/ml) IV PRN (11:15)
[2020-08-26] MEDS ORDERED: Lidocaine 1% Plain 30 ml INJ PRN (11:15)
--- NOTE | 2020-08-26 11:20 | NUR ---
RD ASSESSMENT & RECOMMENDATIONS SEE CARE ACTIVITY FOR COMPLETE ASSESSMENT DAILY ESTIMATED NEEDS: Needs based on Obesity, DM 68.2 ABW 20-25 kcals/kg 4351-7807 total kcals 1-1.5 g protein/kg 68-102 g total protein 25-30 mL/kg 1218-6018 total fluid mLs NUTRITION DIAGNOSIS: * Decreased sodium and fat intake needs R/T HTN and morbid obesity as evidenced by elev BP (148/79), BMI >50 CURRENT DIET: CCHO MED PO DIET RECOMMENDATIONS: CCHO LOW, CARDIAC/ high protein snacks in b/w meals ADDITIONAL RECOMMENDATIONS: 1) Diet change as per recs above 2) Maintain calibrated bed scale wts 3) Monitor BG closely, monitor for hypoglycemia 4) Updated lytes/ labs as able . .
[2020-08-26 12:00] VITALS: BP 132/79
--- NOTE | 2020-08-26 13:38 | Pre-Procedure Note/Attestation ---
Pre-Procedure Note/Attestation Complete Prior to Procedure Planned Procedure: not applicable Procedure Narrative: PICC line vs tunneled PICC placement Indications for Procedure Pre-Operative Diagnosis: Need IV access Attestation informed consent obtained after procedure was discussed at length with patient. Nicolas Morrow M.D. Aug 26, 2020 13:38
--- NOTE | 2020-08-26 14:15 | NUR ---
NURSE NOTES: Patient sent down for PICC insertion at 1243 via bed on O2 2LNC, returned at 1400 in stable condition. RUC central line, double lumen in place, flushed, patent, dressing CDI, hubs connected with orange caps. Warm compress provided for left shoulder discomfort. Will continue to monitor.
--- NOTE | 2020-08-26 15:49 | Diagnostic Imaging Report ---
Indications: Needs long-term IV access Technique: Ultrasound scanning demonstrated no suitable vein for arm PICC. Total sterile technique, including sterile probe cover and sterile gel, sterile gloves, hand hygiene, hat, mask,, sterile gown, large sterile drape, and preparation with 2% chlorhexidine utilized. Local anesthesia with 1% lidocaine. Under real-time ultrasound guidance, puncture right internal jugular vein using 21-gauge micropuncture needle, passage 0.018 guidewire, exchange for 4 Tajik micropuncture introducer. The guidewire was used to measure the appropriate catheter length, and the tunneled PICC line was cut to an appropriate length. A right chest dermatotomy was made . The tunneling device was used to pull a 5 Tajik dual-lumen PICC line through the subcutaneous tunnel to the neck dermatotomy. A guidewire was passed through the neck introducer into the inferior vena cava, and the peel-away sheath placed. The catheter was then introduced into the sheath, the peel-away sheath was removed. Digital radiograph documents satisfactory catheter tip position at the cavoatrial junction, no kinking at the insertion site. Both catheter ports aspirated and flushed. Catheter was fixed to the skin. Patient tolerated procedure well without immediate complication. Total fluoroscopy time 16 seconds . Total fluoroscopy dose 4.02 mGy. Total number of images obtained: 2 Comparison: None. Findings: Completion radiograph documents satisfactory position and course of the catheter, catheter tip at the Cavoatrial junction. Ultrasound demonstrates a patent compressible right internal jugular vein. Needle noted within this vein on ultrasound for venous access. IMPRESSION: Successful placement of right transjugular tunneled PICC line. Catheter cleared for immediate use.
[2020-08-26 16:00] VITALS: BP 141/73
--- NOTE | 2020-08-26 18:23 | NUR ---
RADIOLOGY NOTE: RIJ TUNNELED PICC LINE PLACEMENT BY DR. GARRETT. FA
--- NOTE | 2020-08-26 19:31 | NUR ---
NURSE HAND-OFF: Important Events on Shift:RUC central line inserted (double lumen) Patient Status: stable Diet: CCHO med Pending Orders: CT chest Pending Results/Labs:none Pending MD notification:none Latest Vital Signs: Temperature 97.9 , Pulse 86 , B/P 141 /73 , Respiratory Rate 20 , O2 SAT 92 , Nasal Cannula, O2 Flow Rate 2.0 . Vital Sign Comment: none Latest Helm Fall Score: 35 Fall Risk: Medium Risk Safety Measures: Call light Within Reach, Bed Alarm , Side Rails Side Rails x2, Bed position Low and Locked. Fall Precautions: Yellow Socks Door Sign Patient Fall Education Report given to Raeann FENG.
--- NOTE | 2020-08-26 19:32 | NUR ---
NURSE NOTES: Received report from PING Pearson. Rounds done, patient sitting up in bed, eating. No distress noted at this time. No complaints of pain at this time. Bed in low position, locked, side rails upx 2, call light within reach. WIll continue to monitor. Called radiology inquiring after CT chest order. Spoke with Dhruv, states hasn't yet been done, no IV access earlier. Placed order again for CT chest with contrast, (contrast choice referred to pharmacy as both choices interact with Metformin). Dhruv states it will be done tomorrow morning at latest.
[2020-08-26 20:00] VITALS: BP 135/69
[2020-08-26] MEDS ORDERED: Isovue-370 150ml vial INJ PRN (20:15)
[2020-08-26] MEDS: Dyna-Hex 2% Top Sol 2oz TOPIC SCH (21:27)
[2020-08-27] VITALS: BP 135/70
[2020-08-27] MEDS: DiphenhydrAMINE 50mg/ml Inj IVP PRN ×5 (03:37→22:48)
[2020-08-27 04:00] VITALS: BP 136/63
--- NOTE | 2020-08-27 04:07 | NUR ---
NURSE NOTES: Patient stated pain is more generalized, right now mostly in feet and knees. Assisted in repositioning for comfort, given pain med as ordered. encouraged to call as needed.
[2020-08-27] MEDS: NovoLOG Insulin Flexpen SUBQ SCH ×4 (06:30→21:39)
--- NOTE | 2020-08-27 06:50 | NUR ---
NURSE NOTES: Dr Garvin here to see patient. Will order ultrasound of L arm due to increased swelling. chest CT scan will be done this morning
--- NOTE | 2020-08-27 07:30 | NUR ---
NURSE NOTES: Patient is in bed awake and able to verbalize needs. Stable. Patient instructed to use call light for assistance, verbalized understanding. Breathing is even and unlabored on 2L oxygen via nc. Central line dressing c/d/i. All safety measures provided. Plan of care discussed with patient. All needs met at this time. Patient is in bed in locked and lowest position with call light within reach. Will continue to monitor.
[2020-08-27] MEDS: Albuterol ud Inhalation HHN SCH ×3 (07:45→22:53)
[2020-08-27 08:00] VITALS: BP 136/66
--- NOTE | 2020-08-27 08:00 | NUR ---
NURSE HAND-OFF: Report given to PING Donnelly Important Events on Shift: L arm increased in swelling, Dr Garvin aware this morning, will order ultrasound, awaiting for CT chest Patient Status: guarded Diet: [] Pending Orders: [] Pending Results/Labs:[] Pending MD notification:[] Latest Vital Signs: Temperature 98.6 , Pulse 92 , B/P 136 /63 , Respiratory Rate 20 , O2 SAT 94 , Nasal Cannula, O2 Flow Rate 2.0 . Vital Sign Comment: [] Latest Helm Fall Score: 35 Fall Risk: Medium Risk Safety Measures: Call light Within Reach, Bed Alarm , Side Rails Side Rails x2, Bed position Low and Locked. Fall Precautions: Yellow Socks Door Sign Patient Fall Education Report given to [].
--- NOTE | 2020-08-27 08:15 | NUR ---
NURSE NOTES: Patient taken down for CT.
[2020-08-27] MEDS: Topiramate 25mg tab ORAL SCH (09:14)
[2020-08-27] MEDS: Levemir Flexpen SUBQ SCH ×2 (09:14→21:38)
[2020-08-27] MEDS: Heparin 5000 units/ml inj SUBQ SCH ×2 (09:14→21:36)
[2020-08-27] MEDS: Aspirin Baby 81mg ORAL SCH (09:14)
[2020-08-27] MEDS: Docusate 100mg cap ORAL SCH ×2 (09:15→17:09)
[2020-08-27] MEDS: Losartan 50mg tab ORAL SCH (09:15)
[2020-08-27] MEDS: LORazepam 1mg tab ORAL PRN ×2 (09:55→14:44)
[2020-08-27 12:00] VITALS: BP 146/94
--- NOTE | 2020-08-27 15:08 | General Progress Note ---
Subjective ROS Limited/Unobtainable: No Constitutional: Reports: malaise, weakness HEENT: Reports: no symptoms Cardiovascular: Reports: no symptoms Respiratory: Reports: cough, shortness of breath Gastrointestinal/Abdominal: Reports: no symptoms Genitourinary: Reports: no symptoms Neurologic/Psychiatric: Reports: anxiety Endocrine: Reports: no symptoms Hematologic/Lymphatic: Reports: no symptoms Allergies: Coded Allergies: CIPROFLOXACIN (Verified Allergy, Severe, TWITCHING,ANAPHYLACTIC, 02/14/12) CIPROFLOXACIN HCL (Unverified Allergy, Severe, rash, 05/22/13) KETOROLAC (Verified Allergy, Severe, ITCHING,SWELLING, 12/31/11) KETOROLAC TROMETHAMINE (Unverified Allergy, Severe, rash, 05/22/13) LATEX (Verified Allergy, Severe, ITCHING,SWELLING,ANAPHYLACTIC, 02/14/12) PROCHLORPERAZINE (Verified Allergy, Severe, SWELLING,ITCHING, 12/31/11) PROCHLORPERAZINE EDISYLATE (Unverified Allergy, Severe, rash, 05/22/13) PROCHLORPERAZINE MALEATE (Unverified Allergy, Severe, rash, 05/22/13) ENOXAPARIN (Unverified Allergy, Unknown, Anaphylaxis, 09/16/14) METHYLPHENIDATE HCL (Verified Allergy, Unknown, 03/13/14) POTASSIUM CHLORIDE (Unverified Allergy, Unknown, 09/16/14) swollen tongue VANCOMYCIN (Verified Adverse Reaction, Intermediate, REDMANS SYNDROME, 04/24/12) PT IS FINE LONG VANCO INFUSED OVER 2 HRS Uncoded Allergies: PLASTIC TAPE (Allergy, Unknown, 09/05/11) All Systems: reviewed and negative except above Subjective still with left sided CP. difficult access. stable sob. on o2 at 2L. CTA chest not done due to poor access. awaiting midline/picc line placement continued generalized pain. no fever or chills. no bleeding. venous duplex negative c/o left hand swelling Objective Last 24 Hour Vital Signs Date Time Temp Pulse Resp B/P (MAP) Pulse Ox O2 Delivery O2 Flow Rate FiO2 08/27/20 14:53 94 18 97 Nasal Cannula 2.0 28 94 18 95 08/27/20 14:44 88 18 146/94 96 08/27/20 12:00 98.7 88 18 146/94 (111) 96 08/27/20 10:25 89 20 136/66 95 08/27/20 09:55 89 20 136/66 95 08/27/20 09:15 136/66 08/27/20 08:46 Nasal Cannula 2.0 08/27/20 08:00 98.4 89 20 136/66 (89) 95 08/27/20 07:45 94 Nasal Cannula 2.0 28 08/27/20 07:45 90 18 97 Nasal Cannula 2.0 28 88 18 94 08/27/20 04:00 98.6 92 20 136/63 (87) 97 08/27/20 00:00 98.2 91 18 135/70 (91) 97 08/26/20 23:24 92 18 98 Nasal Cannula 2.0 28 90 18 96 08/26/20 21:23 89 18 135/69 94 08/26/20 21:00 Nasal Cannula 2.0 08/26/20 20:00 98.4 90 18 135/69 (91) 94 08/26/20 20:00 95 Nasal Cannula 2.0 28 08/26/20 16:00 97.9 86 20 141/73 (95) 92 08/26/20 15:48 91 17 99 Nasal Cannula 2.0 28 92 17 95 Intake and Output 08/26/20 08/27/20 19:00 07:00 Intake Total 2000 ml 650 ml Balance 2000 ml 650 ml Intake Oral 2000 ml 650 ml # Voids 3 3 Laboratory Tests 08/26/20 17:31: POC Whole Blood Glucose 193H 08/26/20 21:05: POC Whole Blood Glucose 184H 08/27/20 06:55: POC Whole Blood Glucose 212H 08/27/20 11:57: POC Whole Blood Glucose [Pending] Height (Feet): 5 Height (Inches): 1.00 Weight (Pounds): 269 Objective General Appearance: WD/WN, alert EENT: PERRL/EOMI Neck: non-tender Cardiovascular: normal peripheral pulses, normal rate, regular rhythm Respiratory/Chest: chest wall non-tender, lungs clear, normal breath sounds, no respiratory distress Abdomen: normal bowel sounds, non tender, soft, no organomegaly Extremities: normal range of motion Edema: no edema noted Arm (L), no edema noted Arm (R) Edema: trace edema. 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 II-XII 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, alert, oriented x 3, responsive Skin: normal pigmentation Assessment/Plan Problem List: (1) Asthma exacerbation ICD Codes: J45.901 - Unspecified asthma with (acute) exacerbation SNOMED: 249847939 (2) lupus flare (3) Diabetes mellitus type 2 in obese ICD Codes: E11.69 - Type 2 diabetes mellitus with other specified complication; E66.9 - Obesity, unspecified SNOMED: 57875031 (4) Hypertension ICD Codes: I10 - Essential (primary) hypertension SNOMED: 05324054 (5) COPD exacerbation ICD Codes: J44.1 - Chronic obstructive pulmonary disease with (acute) exacerbation SNOMED: 240981910 (6) Obese ICD Codes: E66.9 - Obesity, unspecified SNOMED: 429811182, 061804107 (7) Lupus ICD Codes: M32.9 - Systemic lupus erythematosus, unspecified SNOMED: 313355996 Status: stable, progressing Assessment/Plan: off steroids increase insulin rx pain meds as needed o2 resp rx pt/ot eval muscle relaxants added midline ct chest r/o PE duplex Karthik Gonzalez MD Aug 27, 2020 15:07
--- NOTE | 2020-08-27 15:49 | NUR ---
NURSE NOTES: Reported CTA results to Dr. Garvin, awaiting response.
[2020-08-27 16:00] VITALS: BP 140/80
--- NOTE | 2020-08-27 18:44 | Diagnostic Imaging Report ---
EXAM: US Duplex Bilateral Lower Extremities Veins CLINICAL HISTORY: DVT TECHNIQUE: Real-time duplex ultrasound scan of the bilateral lower extremity veins integrating B-mode two-dimensional vascular structure, Doppler spectral analysis, color flow Doppler imaging and compression. COMPARISON: No relevant prior studies available. FINDINGS: Right deep veins: Otherwise, no DVT. Right superficial veins: Unremarkable. No thrombus in the visualized right great saphenous vein. Left deep veins: See above. Left superficial veins: Nonvisualized left basilic vein of uncertain significance. No thrombus in the visualized left great saphenous vein. Soft tissues: No acute findings. No popliteal cyst. IMPRESSION: 1. Nonvisualized left basilic vein of uncertain significance. 2. Otherwise, no DVT.
--- NOTE | 2020-08-27 19:30 | NUR ---
NURSE HAND-OFF: Important Events on Shift: venous duplex, CTA, pain management Patient Status: stable Diet: ccho med Pending Orders: n/a Pending Results/Labs:n/a Pending MD notification:n/a Latest Vital Signs: Temperature 98.0 , Pulse 90 , B/P 140 /80 , Respiratory Rate 20 , O2 SAT 95 , Nasal Cannula, O2 Flow Rate 2.0 . Vital Sign Comment: n/a Latest Helm Fall Score: 35 Fall Risk: Medium Risk Safety Measures: Call light Within Reach, Bed Alarm , Side Rails Side Rails x2, Bed position Low and Locked. Fall Precautions: Yellow Socks Door Sign Patient Fall Education Report given to Raeann FENG.
--- NOTE | 2020-08-27 19:35 | NUR ---
NURSE NOTES: Received report from PING Donnelly. patient alert, oriented, was given pain medication and is resting at this time. Bed in low position, locked, side rails up x2, call light within reach. Patient calm at this time. Will continue to monitor. Encouraged to call as needed.
[2020-08-27 20:00] VITALS: BP 157/83
[2020-08-27] MEDS: Dyna-Hex 2% Top Sol 2oz TOPIC SCH (21:35)
[2020-08-27] MEDS: Flonase Nasal Inhaler 16gm NASAL PRN (23:13)
[2020-08-27] MEDS: DiphenhydrAMINE & Zinc 28g Cream TOPIC PRN (23:13)
[2020-08-28] VITALS: BP 142/81
[2020-08-28] MEDS: LORazepam 1mg tab ORAL PRN ×2 (00:28→09:37)
[2020-08-28] MEDS: DiphenhydrAMINE 50mg/ml Inj IVP PRN ×5 (02:38→19:47)
[2020-08-28 04:00] VITALS: BP 141/82
--- NOTE | 2020-08-28 06:25 | NUR ---
NURSE NOTES: Dr Garvin here to see patient. Left prescriptions with patient, discussed discharge options. Physician states patient might go to rehab. No discharge orders at this time. Discussed pain control issues with physician. Ok to give Dilaudid and Benadryl now.
[2020-08-28] MEDS: NovoLOG Insulin Flexpen SUBQ SCH ×4 (06:45→20:11)
--- NOTE | 2020-08-28 07:30 | NUR ---
NURSE NOTES: Received report from chandu FENG, rounds made pt awake , a/ox4, breaths regular unlabored on RA, no s/s of distress pt having breakfast, pt has a R upper chest subclavian , double lumen, no IVF, dressing clean intact. pt has a dressing on the R great toe, will change dressing later. Bed in low locked position, side rails upX2, call light with in reach, will continue with plan of care
--- NOTE | 2020-08-28 07:30 | NUR ---
Report given to PING Ledbetter. Rounds done NURSE HAND-OFF: Important Events on Shift: pain control issues, Dr Garvin notified. Patient Status: stable Diet: ccho Pending Orders: [] Pending Results/Labs:[] Pending MD notification:[] Latest Vital Signs: Temperature 99.0 , Pulse 104 , B/P 143 /84 , Respiratory Rate 16 , O2 SAT 97 , Nasal Cannula, O2 Flow Rate 2.0 . Vital Sign Comment: [] Latest Helm Fall Score: 35 Fall Risk: Medium Risk Safety Measures: Call light Within Reach, Bed Alarm , Side Rails Side Rails x2, Bed position Low and Locked. Fall Precautions: Yellow Socks Door Sign Patient Fall Education Report given to [].
[2020-08-28 08:00] VITALS: BP 143/84
[2020-08-28] MEDS: Albuterol ud Inhalation HHN SCH (08:00)
--- NOTE | 2020-08-28 08:05 | NUR ---
NURSE NOTES: pt called and found pt with gauze from [facility] R great toe. R great toe with small amount of blood and no visible nail. will notify
[2020-08-28] MEDS: Docusate 100mg cap ORAL SCH ×2 (09:36→17:28)
[2020-08-28] MEDS: Topiramate 25mg tab ORAL SCH (09:37)
[2020-08-28] MEDS: Losartan 50mg tab ORAL SCH (09:37)
[2020-08-28] MEDS: Aspirin Baby 81mg ORAL SCH (09:37)
[2020-08-28] MEDS: Heparin 5000 units/ml inj SUBQ SCH ×2 (09:38→20:11)
[2020-08-28] MEDS: Levemir Flexpen SUBQ SCH ×2 (09:52→20:10)
--- NOTE | 2020-08-28 11:05 | NUR ---
NURSE NOTES: Pt arrived to the floor via hospital bed , pt awake a/oX4, breaths regular unlabored on 2 NC, pt denies any pain at this time . pt has IVF on the Left hand , intact patent asymptomatic, bilateral SCD on , surgical dressing on the anterior neck , Dermabond and open to air, neural checks done and intact pt able to wiggle toes and fingers. Pt has no belongings, taken by family member , bed in low locked position, side rails upX3 , will continue to monitor Addendum: 08/28/20 at 1813 by Khloe Judge RN Entered in error
[2020-08-28 12:00] VITALS: BP 140/86
--- NOTE | 2020-08-28 14:44 | General Progress Note ---
Subjective ROS Limited/Unobtainable: No Constitutional: Reports: malaise, weakness HEENT: Reports: no symptoms Cardiovascular: Reports: chest pain Respiratory: Reports: cough, shortness of breath Gastrointestinal/Abdominal: Reports: no symptoms Genitourinary: Reports: no symptoms Neurologic/Psychiatric: Reports: anxiety, depressed Endocrine: Reports: no symptoms Hematologic/Lymphatic: Reports: no symptoms Allergies: Coded Allergies: CIPROFLOXACIN (Verified Allergy, Severe, TWITCHING,ANAPHYLACTIC, 02/14/12) CIPROFLOXACIN HCL (Unverified Allergy, Severe, rash, 05/22/13) KETOROLAC (Verified Allergy, Severe, ITCHING,SWELLING, 12/31/11) KETOROLAC TROMETHAMINE (Unverified Allergy, Severe, rash, 05/22/13) LATEX (Verified Allergy, Severe, ITCHING,SWELLING,ANAPHYLACTIC, 02/14/12) PROCHLORPERAZINE (Verified Allergy, Severe, SWELLING,ITCHING, 12/31/11) PROCHLORPERAZINE EDISYLATE (Unverified Allergy, Severe, rash, 05/22/13) PROCHLORPERAZINE MALEATE (Unverified Allergy, Severe, rash, 05/22/13) ENOXAPARIN (Unverified Allergy, Unknown, Anaphylaxis, 09/16/14) METHYLPHENIDATE HCL (Verified Allergy, Unknown, 03/13/14) POTASSIUM CHLORIDE (Unverified Allergy, Unknown, 09/16/14) swollen tongue VANCOMYCIN (Verified Adverse Reaction, Intermediate, REDMANS SYNDROME, 04/24/12) PT IS FINE LONG VANCO INFUSED OVER 2 HRS Uncoded Allergies: PLASTIC TAPE (Allergy, Unknown, 09/05/11) All Systems: reviewed and negative except above Subjective still with left sided CP. difficult access. s/p picc stable sob. on o2 at 2L. CTA chest completed- results pending continued generalized pain. no fever or chills. no bleeding. venous duplex negative c/o left hand swelling tearfu/crying. c/o 10/10 pain. requiring iv pain meds atc Objective Last 24 Hour Vital Signs Date Time Temp Pulse Resp B/P (MAP) Pulse Ox O2 Delivery O2 Flow Rate FiO2 08/28/20 09:37 143/84 08/28/20 09:00 Nasal Cannula 2.0 08/28/20 08:10 99 18 100 Nasal Cannula 2.0 28 95 18 96 08/28/20 08:00 99.0 104 16 143/84 (103) 97 08/28/20 07:59 95 Nasal Cannula 2.0 28 08/28/20 04:00 98.2 91 16 141/82 (101) 98 08/28/20 00:58 16 08/28/20 00:28 91 20 142/81 93 08/28/20 00:00 98.2 91 21 142/81 (101) 93 08/27/20 22:53 90 18 97 Nasal Cannula 2.0 28 91 18 94 08/27/20 21:00 Nasal Cannula 2.0 08/27/20 20:35 96 Nasal Cannula 2.0 28 08/27/20 20:00 98.2 90 18 157/83 (107) 96 08/27/20 16:00 98.0 90 20 140/80 (100) 95 08/27/20 15:14 94 18 146/94 97 08/27/20 14:53 94 18 97 Nasal Cannula 2.0 28 94 18 95 08/27/20 14:44 88 18 146/94 96 Intake and Output 08/27/20 08/28/20 19:00 07:00 Intake Total 1200 ml Balance 1200 ml Intake Oral 1200 ml # Voids 3 Laboratory Tests 08/27/20 17:09: POC Whole Blood Glucose [Pending] 08/27/20 21:24: POC Whole Blood Glucose 177H 08/28/20 06:30: POC Whole Blood Glucose 218H 08/28/20 09:50: POC Whole Blood Glucose 213H Height (Feet): 5 Height (Inches): 1.00 Weight (Pounds): 269 Objective General Appearance: WD/WN, alert EENT: PERRL/EOMI Neck: non-tender Cardiovascular: normal peripheral pulses, normal rate, regular rhythm Respiratory/Chest: chest wall non-tender, lungs clear, normal breath sounds, no respiratory distress Abdomen: normal bowel sounds, non tender, soft, no organomegaly Extremities: normal range of motion Edema: no edema noted Arm (L), no edema noted Arm (R) Edema: trace edema. 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, alert, oriented x 3, responsive Skin: normal pigmentation Assessment/Plan Problem List: (1) Asthma exacerbation ICD Codes: J45.901 - Unspecified asthma with (acute) exacerbation SNOMED: 613936380 (2) lupus flare (3) Diabetes mellitus type 2 in obese ICD Codes: E11.69 - Type 2 diabetes mellitus with other specified complication; E66.9 - Obesity, unspecified SNOMED: 97629888 (4) Hypertension ICD Codes: I10 - Essential (primary) hypertension SNOMED: 57635821 (5) COPD exacerbation ICD Codes: J44.1 - Chronic obstructive pulmonary disease with (acute) exacerbation SNOMED: 819572571 (6) Obese ICD Codes: E66.9 - Obesity, unspecified SNOMED: 276218943, 536018360 (7) Lupus ICD Codes: M32.9 - Systemic lupus erythematosus, unspecified SNOMED: 124325622 Status: stable, progressing Assessment/Plan: off steroids insulin coverage pain meds as needed o2 resp rx pt/ot eval muscle relaxants added midline follow up ct chest Karthik Garvin MD Aug 28, 2020 14:44
[2020-08-28 16:00] VITALS: BP 145/96
--- NOTE | 2020-08-28 18:42 | Diagnostic Imaging Report ---
EXAM: CT Chest With Intravenous Contrast CLINICAL HISTORY: PE TECHNIQUE: Axial computed tomographic images of the chest with intravenous contrast. CTDI is 116.90 mGy and DLP is 1842.90 mGy-cm. One or more of the following dose reduction techniques were used: automated exposure control, adjustment of the mA and/or kV according to patient size, use of iterative reconstruction technique. Coronal and sagittal reformatted images were created and reviewed. COMPARISON: No relevant prior studies available. FINDINGS: Pulmonary arteries: No pulmonary embolism. Aorta: No acute findings. No thoracic aortic aneurysm. Lungs: Mosaic lung attenuation could represent small airways disease. No mass. Pleural space: Unremarkable. No significant effusion. No pneumothorax. Heart: Unremarkable. No cardiomegaly. No significant pericardial effusion. No evidence of RV dysfunction. Bones/joints: No acute fracture. No dislocation. Soft tissues: Unremarkable. Lymph nodes: Unremarkable. No enlarged lymph nodes. Liver: Hepatic steatosis and possible steatohepatitis; consider outpatient MR or ultrasound elastography to quantify hepatic fibrosis. Tubes, lines and devices: Right IJ approach central venous catheter, tip at the superior cavoatrial junction. IMPRESSION: 1. No pulmonary embolism. 2. Mosaic lung attenuation could represent small airways disease. 3. Right IJ approach central venous catheter, tip at the superior cavoatrial junction. 4. Hepatic steatosis and possible steatohepatitis; consider outpatient MR or ultrasound elastography to quantify hepatic fibrosis.
[2020-08-28] MEDS: Dyna-Hex 2% Top Sol 2oz TOPIC SCH (19:47)
--- NOTE | 2020-08-28 19:48 | NUR ---
NURSE HAND-OFF: Important Events on Shift: pain management Patient Status: stable Diet: CCHO medium Pending Orders: Pending Results/Labs: Pending MD notification: Latest Vital Signs: Temperature 98.2 , Pulse 96 , B/P 145 /96 , Respiratory Rate 18 , O2 SAT 95 , Nasal Cannula, O2 Flow Rate 2.0 . Vital Sign Comment: Latest Helm Fall Score: 35 Fall Risk: Medium Risk Safety Measures: Call light Within Reach, Bed Alarm , Side Rails Side Rails x2, Bed position Low and Locked. Fall Precautions: Yellow Socks Door Sign Patient Fall Education Report given to Gillian Garcia RN
--- NOTE | 2020-08-28 19:50 | NUR ---
NURSE NOTES: Pt is awake, alert and oriented x4, on room air, with nasal cannula prn , breaths regular unlabored. Patient is complaining of severe pain 10/10 is requesting pain medication at this time. Pt has R upper chest subclavian , double lumen catheter, no IVF, dressing clean intact. pt has a dressing on the R great toe, clean, dry and intact, changed earlier today per previous RN. Bed in lowest position, locked side rails upX2, call light within reach, will continue with plan of care
[2020-08-28 20:00] VITALS: BP 144/86
[2020-08-29] VITALS (7 sets, daily range): BP systolic 124–175; BP diastolic 75–106
--- NOTE | 2020-08-29 00:18 | NUR ---
NURSE NOTES: Left voicemail for Dr Garvin's office, voicemail of Dr Feliz, doctor commercial or institutional cleaner to receive an order as pt is complaining of severe pain. The pain medication order was completed already and can no longer be administered. Will wait for call back.
[2020-08-29] MEDS: DiphenhydrAMINE 50mg/ml Inj IVP PRN ×3 (00:44→13:26)
[2020-08-29] MEDS: NovoLOG Insulin Flexpen SUBQ SCH ×2 (06:43→12:21)
[2020-08-29] MEDS ORDERED: Albuterol ud Inhalation HHN PRN (07:00)
--- NOTE | 2020-08-29 07:14 | NUR ---
NURSE NOTES: Report received from Linh FENG, rounds made. Patient sitting resting high fowlers position in bed. AOx4, calm, respirations even/unlabored on RA. Skin warm, dry, normal color. RUC central line, dressing CDI, double lumen, site asymptomatic, clamped. Tolerating breakfast. No NV. Complains of pain to left shoulder will medicate as ordered, will provide ice pack/heating compress for additional pain relief. Plans for discharge today. Bed in lowest position, call light in reach, will continue to monitor.
--- NOTE | 2020-08-29 07:32 | NUR ---
NURSE HAND-OFF: Important Events on Shift: pain management, pain med dilaudid reordered last night may be given q 6 hours. Last given just prior to shift change Plan is for pt to go home today per Dr Garvin Patient Status: stable Diet: CCHO medium Pending Orders: Pending Results/Labs: Pending MD notification: Latest Vital Signs: Temperature 98.2 , Pulse 96 , B/P 145 /96 , Respiratory Rate 18 , O2 SAT 95 , Nasal Cannula, O2 Flow Rate 2.0 . Vital Sign Comment: Latest Helm Fall Score: 35 Fall Risk: Medium Risk Safety Measures: Call light Within Reach, Bed Alarm , Side Rails Side Rails x2, Bed position Low and Locked. Fall Precautions: Yellow Socks Door Sign Patient Fall Education Report given to Lili FENG
[2020-08-29] MEDS: Levemir Flexpen SUBQ SCH (09:24)
[2020-08-29] MEDS: Heparin 5000 units/ml inj SUBQ SCH (09:25)
[2020-08-29] MEDS: Docusate 100mg cap ORAL SCH (09:26)
[2020-08-29] MEDS: Losartan 50mg tab ORAL SCH (09:26)
[2020-08-29] MEDS: Aspirin Baby 81mg ORAL SCH (09:26)
[2020-08-29] MEDS: Topiramate 25mg tab ORAL SCH (09:26)
--- NOTE | 2020-08-29 15:45 | NUR ---
NURSE NOTES: C central line discontinued, surrounding skin prepped with alcohol swabs, stablized catheter while removing dressing and sutures (clipped off), no bleeding, mild pinkness surrounding sutures and catheter site, no drainage or tenderness, pressure dressing (4x4 gauze and paper tape) applied, provided patient with extra 4x4 gauze and paper tape.
--- NOTE | 2020-08-29 16:00 | NUR ---
NURSE NOTES: Discharge instructions, belongings inventory reviewed with patient, all belongings with patient, verbalized understanding for discharge instructions. ID bracelet removed. RUC pressure dressing remains CDI. Patient sent down to lobby via in stable condition. Discharged home via taxi at 1600.
--- NOTE | 2020-08-29 18:15 | Discharge Summary ---
DATE OF ADMISSION: 08/21/2020 DATE OF DISCHARGE: 08/29/2020 ADMISSION DIAGNOSES: 1. Asthma exacerbation. 2. Diabetes out of control. 3. Hyperosmolar nonketotic syndrome. 4. Possible lupus flare. 5. Acute coronary syndrome. DISCHARGE DIAGNOSES: 1. Asthma exacerbation. 2. Diabetes out of control. 3. Hyperosmolar nonketotic syndrome. 4. Possible lupus flare. 5. Acute coronary syndrome. HOSPITAL COURSE: The patient was admitted with complaints of chest pain and shortness of breath secondary to asthma exacerbation. She received intravenous steroids. She was also diagnosed with uncontrolled diabetes. She was placed on increasing doses of insulin and eventually blood sugars were better controlled. She had chest pain. Her enzymes were negative. She had a CAT scan of the chest that was negative for pulmonary embolism. Venous duplex was also negative. On discharge, the patient was stable. She was offered a snf facility but declined. She will be discharged home with follow up in 2 to 3 weeks. DISCHARGE MEDICATIONS: Please see discharge list for discharge medications. DIET: Cardiac and diabetic diet. ACTIVITY: Ad-christina. Karthik Garvin M.D. DR: Mariana JOB#: [id number] CC:
== END 2020-08-29 16:11 | disposition home or self-care (01) | DRG 202 ==
LOC: 3E 16:21
PROC: B543ZZA Ultrasonography of Right Jugular Veins, Guidance (ICD-10-PCS; principal; 2020-08-26)
PROC: 0JH63XZ Insertion of Tunneled Vascular Access Device into Chest Subcutaneous Tissue and Fascia, Percutaneous Approach (ICD-10-PCS; principal; 2020-08-26)
PROC: 05HM33Z Insertion of Infusion Device into Right Internal Jugular Vein, Percutaneous Approach (ICD-10-PCS; principal; 2020-08-26)
DX: J45.901 Unspecified asthma with (acute) exacerbation (principal); E11.00 Type 2 diabetes mellitus with hyperosmolarity without nonketotic hyperglycemic-hyperosmolar coma (NKHHC); Z68.43 Body mass index [BMI] 50.0-59.9, adult; I24.9 Acute ischemic heart disease, unspecified; E66.9 Obesity, unspecified; E11.65 Type 2 diabetes mellitus with hyperglycemia; M32.9 Systemic lupus erythematosus, unspecified; E11.40 Type 2 diabetes mellitus with diabetic neuropathy, unspecified; I10 Essential (primary) hypertension
CPT/HCPCS: 36415; 36558; 71045; 71275; 76000; 80053; 81003; 82962; 85025; 85651; 93970; 94640; J1815; S5561; U0002

== ENCOUNTER 2020-09-05 09:55 | Inpatient (IN) | payer MEDICARE, OTHER ==
[~2020-09-05] VITALS: Ht 153.7 cm; Wt 125.9 kg
[2020-09-05] MEDS: Topiramate 25mg tab ORAL SCH (09:00)
[2020-09-05] MEDS ORDERED: Losartan 50mg tab ORAL SCH (14:30)
[2020-09-05] MEDS ORDERED: Docusate 100mg cap ORAL SCH (14:30)
[2020-09-05] MEDS ORDERED: metFORMIN 500mg tab ORAL SCH (14:30)
[2020-09-05] MEDS ORDERED: HYDROcodone/Acetamin 10/325 tab ORAL PRN (14:30)
[2020-09-05] MEDS ORDERED: Albuterol ud Inhalation HHN PRN (14:30)
[2020-09-05] MEDS ORDERED: HydrALAZINE 25mg tab ORAL PRN (14:30)
[2020-09-05] MEDS: Albuterol/Ipratropium 3ml neb HHN SCH ×3 (15:00→23:22)
[2020-09-05 15:01] LABS: BASOPHILS % (AUTO) 2.1 % (0.0-2.0); EOSINOPHILS % (AUTO) 3.1 % (0.0-3.0); HEMATOCRIT 40.4 % (37.0-47.0); HEMOGLOBIN 13.1 G/DL (12.0-16.0); LYMPHOCYTES % (AUTO) 32.4 % (20.0-45.0); MEAN CORPUSCULAR VOLUME 84 FL (80-99); MONOCYTES % (AUTO) 6.4 % (1.0-10.0); PLATELET COUNT 274 K/UL (150-450); RED BLOOD COUNT 4.79 M/UL (4.20-5.40); RED CELL DISTRIBUTION WIDTH 15.6 % (11.6-14.8)
[2020-09-05 15:22] LABS: ALANINE AMINOTRANSFERASE 27 U/L (12-78); ALBUMIN 3.4 G/DL (3.4-5.0); ALBUMIN/GLOBULIN RATIO 0.9 (1.0-2.7); ALKALINE PHOSPHATASE 80 U/L (46-116); ASPARTATE AMINO TRANSFERASE 15 U/L (15-37); BILIRUBIN,TOTAL 0.3 MG/DL (0.2-1.0); BLOOD UREA NITROGEN 14 mg/dL (7-18); CALCIUM 9.1 MG/DL (8.5-10.1); CARBON DIOXIDE 27 MMOL/L (21-32); CREATINE KINASE 49 U/L (26-308); CREATININE 1.1 MG/DL (0.55-1.30)
[2020-09-05 15:44] LABS: CHLORIDE 98 MMOL/L (98-107); POTASSIUM 4.7 MMOL/L (3.5-5.1); SODIUM 135 MMOL/L (136-145)
[2020-09-05 16:00] VITALS: BP 195/104
[2020-09-05] MEDS ORDERED: Solu-MEDROL 40mg Inj IVP ONE (16:15)
[2020-09-05] MEDS: Docusate 100mg cap ORAL SCH (17:18)
[2020-09-05] MEDS: metFORMIN 500mg tab ORAL SCH (17:18)
[2020-09-05] MEDS: Levemir Flexpen SUBQ SCH (17:26)
[2020-09-05] MEDS: NovoLOG Insulin Flexpen SUBQ SCH ×2 (17:27→21:21)
[2020-09-05] MEDS ORDERED: DiphenhydrAMINE 50mg/ml Inj IVP PRN (17:45)
[2020-09-05] MEDS ORDERED: Flonase Nasal Inhaler 16gm NASAL PRN (18:00)
[2020-09-05 20:13] VITALS: BP 160/93
[2020-09-05] MEDS ORDERED: Zolpidem 5mg tab ORAL PRN (21:00)
[2020-09-05] MEDS: Solu-MEDROL 40mg Inj IVP SCH (22:00)
[2020-09-06] VITALS: BP 162/95
[2020-09-06] MEDS: Albuterol/Ipratropium 3ml neb HHN SCH ×6 (02:56→23:21)
[2020-09-06 04:00] VITALS: BP 155/90
[2020-09-06] MEDS: Solu-MEDROL 40mg Inj IVP SCH ×3 (05:55→21:49)
[2020-09-06] MEDS: metFORMIN 500mg tab ORAL SCH ×3 (06:27→15:53)
[2020-09-06] MEDS: NovoLOG Insulin Flexpen SUBQ SCH ×4 (06:30→21:48)
[2020-09-06 08:00] VITALS: BP 182/102
[2020-09-06] MEDS: Docusate 100mg cap ORAL SCH ×2 (08:24→17:27)
[2020-09-06] MEDS: Topiramate 25mg tab ORAL SCH (08:24)
[2020-09-06] MEDS: Aspirin Baby 81mg ORAL SCH (08:24)
[2020-09-06] MEDS: Losartan 50mg tab ORAL SCH (08:24)
[2020-09-06] MEDS: Levemir Flexpen SUBQ SCH ×2 (08:26→17:31)
--- NOTE | 2020-09-06 10:00 | Diagnostic Imaging Report ---
EXAM: XR Chest, 1 View CLINICAL HISTORY: COUGH TECHNIQUE: Frontal view of the chest. COMPARISON: August 22, 2020 chest radiograph and August 27, 2020 CT exam. FINDINGS: Prominent cardiomediastinal silhouette with vascular congestion. Low lung volumes. Mild patchy filtrates. No large pleural effusions. Osseous structures are unremarkable. IMPRESSION: Enlarged cardiomediastinal silhouette with vascular congestion. Mild bilateral patchy infiltrates. No large pleural effusions.
[2020-09-06 11:37] VITALS: BP 135/81
--- NOTE | 2020-09-06 13:44 | History and Physical Report ---
DATE OF ADMISSION: 09/05/2020 CHIEF COMPLAINT: Foot pain, asthma exacerbation. HISTORY OF PRESENT ILLNESS: The patient is a 55-year-old female, well known to me. She has a history of lupus, asthma, obesity, hypertension, and diabetes presented from home with complaints of shortness of breath and severe pain in the feet. She was noted to have developed a blister on the right foot about 3 x 6 cm in length. There was a small amount of erythema there noted. Pain has been regardless in both feet, but worse in the right foot with a large blister. She has been taking her inhalers at home as well as nebulizer treatments without any improvement in her shortness of breath. She was therefore admitted for further evaluation and care. PAST MEDICAL HISTORY: As above. PAST SURGICAL HISTORY: Includes knee surgery. CURRENT MEDICATIONS: Reconciled and reviewed. ALLERGIES: Include Cipro, enoxaparin, ketorolac, methylphenidate, tape, prochlorperazine, potassium chloride. FAMILY HISTORY: Noncontributory. SOCIAL HISTORY: Negative for tobacco, ethanol, or drugs. REVIEW OF SYSTEMS: GENERAL: No fevers or chills. HEENT: No headaches or visual changes. CARDIOPULMONARY: No chest pain. Positive shortness of breath and wheezing. GASTROINTESTINAL: No nausea or vomiting. GENITOURINARY: No urgency or frequency. MUSCULOSKELETAL: No joint pain or swelling. NEUROLOGIC: No evidence of seizures. PHYSICAL EXAMINATION: VITAL SIGNS: Temperature 98, pulse 94, respiratory rate 19, blood pressure 195/104. GENERAL: The patient is well developed, in no apparent distress. HEART: Regular rate and rhythm. LUNGS: Scattered wheezes. ABDOMEN: Soft, nontender, nondistended. EXTREMITIES: Without clubbing or cyanosis. There is a large blister on the bottom of the right foot noted with a small amount of erythema. ASSESSMENT: This is a pleasant female admitted with complaints of asthma exacerbation, right foot blister with possible cellulitis. PLAN: 1. Intravenous steroids. 2. Respiratory treatments. 3. Monitor Accu-Cheks. 4. Wound consultation for large blisters on the foot. 5. Titrate antihypertensive regimen. 6. Check sedimentation rate. 7. The patient likely will need placement. Karthik Garvin M.D. DR: Mariana JOB#: [id number] CC:
[2020-09-06 16:00] VITALS: BP 121/78
[2020-09-06 20:00] VITALS: BP 159/85
[2020-09-07] VITALS: BP 142/92
[2020-09-07] MEDS: Albuterol/Ipratropium 3ml neb HHN SCH ×6 (03:40→23:59)
[2020-09-07 04:00] VITALS: BP 146/84
[2020-09-07] MEDS: NovoLOG Insulin Flexpen SUBQ SCH ×4 (05:34→22:19)
[2020-09-07] MEDS: metFORMIN 500mg tab ORAL SCH ×3 (05:36→16:46)
[2020-09-07] MEDS: Solu-MEDROL 40mg Inj IVP SCH ×2 (05:37→13:06)
[2020-09-07 08:00] VITALS: BP 141/90
[2020-09-07] MEDS: Losartan 50mg tab ORAL SCH (08:59)
[2020-09-07] MEDS: Aspirin Baby 81mg ORAL SCH (08:59)
[2020-09-07] MEDS: Docusate 100mg cap ORAL SCH ×2 (08:59→17:58)
[2020-09-07] MEDS: Topiramate 25mg tab ORAL SCH (08:59)
[2020-09-07] MEDS: Levemir Flexpen SUBQ SCH ×2 (09:08→17:59)
[2020-09-07 12:00] VITALS: BP 152/89
--- NOTE | 2020-09-07 13:15 | Consultation ---
History of Present Illness General Date patient seen: Sep 07, 2020 Present Illness HPI This is a very pleasant 55-year-old female multiple medical comorbidities including history of Raynouds disease who presented to [facility] complaining of excruciating bilateral lower extremity and feet pain. States she feels a cramping pain as if her legs and feet are janice. States that when she is identifying is an edema but more contraction given the amount of discomfort she is having. States history of Raynaud's and has continued to have this problem in the past. No nausea vomiting fever chills. Pain 10 out of 10 cramping pain. Feels like spasms. Identified to have a large blister on the plantar aspect of her foot. Denies any trauma. States that sometime ago required the nail of the great toe to be removed for infection. Labs noted imaging reviewed surgery called to evaluate patient seen Allergies: Coded Allergies: CIPROFLOXACIN (Verified Allergy, Severe, TWITCHING,ANAPHYLACTIC, 02/14/12) CIPROFLOXACIN HCL (Unverified Allergy, Severe, rash, 05/22/13) KETOROLAC (Verified Allergy, Severe, ITCHING,SWELLING, 12/31/11) KETOROLAC TROMETHAMINE (Unverified Allergy, Severe, rash, 05/22/13) LATEX (Verified Allergy, Severe, ITCHING,SWELLING,ANAPHYLACTIC, 02/14/12) PROCHLORPERAZINE (Verified Allergy, Severe, SWELLING,ITCHING, 12/31/11) PROCHLORPERAZINE EDISYLATE (Unverified Allergy, Severe, rash, 05/22/13) PROCHLORPERAZINE MALEATE (Unverified Allergy, Severe, rash, 05/22/13) ENOXAPARIN (Unverified Allergy, Unknown, Anaphylaxis, 09/16/14) METHYLPHENIDATE HCL (Verified Allergy, Unknown, 03/13/14) POTASSIUM CHLORIDE (Unverified Allergy, Unknown, 09/16/14) swollen tongue VANCOMYCIN (Verified Adverse Reaction, Intermediate, REDMANS SYNDROME, 04/24/12) PT IS FINE LONG VANCO INFUSED OVER 2 HRS Uncoded Allergies: PLASTIC TAPE (Allergy, Unknown, 09/05/11) COVID-19 Screening Contact w/high risk pt: No Recent Travel to affected area: No Experienced COVID-19 symptoms?: No Medication History Scheduled Aspirin* (Aspirin*), 81 MG ORAL DAILY, (Reported) Docusate Sodium* (Colace*), 100 MG ORAL TWICE A DAY, (Reported) Gabapentin* (Neurontin*), 300 MG ORAL THREE TIMES A DAY, (Reported) Insulin Detemir (Levemir Flexpen), 6 UNITS SUBQ BID Insulin Detemir (Levemir Flexpen), 6 UNITS SUBQ BID Losartan Potassium* (Cozaar*), 100 MG ORAL DAILY, (Reported) Losartan Potassium* (Cozaar*), 100 MG ORAL DAILY Metformin Hcl* (Glucophage*), 1,000 MG ORAL TIAC Metoclopramide Hcl* (Reglan*), 10 MG ORAL TWICE A DAY, (Reported) Ondansetron (Zofran), 4 MG ORAL Q8H, (Reported) Pantoprazole* (Protonix*), 40 MG ORAL DAILY, (Reported) Prednisone* (Prednisone*), 20 MG ORAL DAILY, (Reported) Topiramate* (Topamax*), 25 MG ORAL DAILY, (Reported) Scheduled PRN Albuterol Sulfate* (Albuterol Sulfate Hhn*), 2.5 MG HHN Q4H PRN for Bronchospasm, (Reported) Carisoprodol* (Soma*), 1 TAB ORAL Q4H PRN for For Pain, (Reported) Clonidine Hcl* (Catapres*), 0.1 MG ORAL Q4H PRN for For High Blood Pressure, (Reported) Fluticasone Propionate* (Fluticasone Propionate*), 1 SPRAY NASAL TWICE A DAY PRN for AD, (Reported) Hydralazine Hcl* (Hydralazine Hcl*), 25 MG ORAL Q4H PRN Hydrocodone Bit/Acetaminophen 10-325* (Hydrocodon-Acetaminophn 10-325*), 1 TAB ORAL Q6H PRN for For Pain, (Reported) Hydromorphone Hcl/Pf (Hydromorphone 2 Mg/Ml Syringe*), 2 MG IVP Q4H PRN Sumatriptan Succinate* (Imitrex*), 50 MG ORAL DAILY PRN MIGRAINE PRN for For Pain, (Reported) Zolpidem Tartrate* (Zolpidem Tartrate*), 5 MG ORAL BEDTIME PRN for Insomnia, (R eported) Patient History History Provided By: Patient, Medical Record, PMD Healthcare decision maker Resuscitation status Advanced Directive on File Past Medical/Surgical History Past Medical/Surgical History: (1) Flank pain (2) Opioid abuse (3) Opioid dependence (4) Herpes zoster (5) Opioid dependence (6) Syncope (7) Abdominal pain (8) Hyponatremia (9) Metabolic acidosis (10) Dehydration (11) GE (gastroenteritis) (12) Cystitis (13) Cystitis (14) Dizziness (15) Headache (16) Anxiety (17) Cellulitis (18) Chest pain (19) Chronic pain (20) Blister of foot with infection (21) Obese (22) Hypertension (23) Lupus (24) COPD exacerbation (25) Diabetes mellitus type 2 in obese (26) Asthma exacerbation (27) lupus flare Review of Systems Review of Symptoms General ROS: no weight loss or fever Psychological ROS: no depression or mood changes, no memory loss Ophthalmic ROS: no visual changes or eye irritation ENT ROS: no nasal congestion, hearing loss, dizziness Allergy and Immunology ROS: no allergic symptoms or urticaria Hematological and Lymphatic ROS: no swollen glands, unusual bleeding or bruising Endocrine ROS: no polyuria, polydipsia, weight changes, temperature intolerance Respiratory ROS: no cough, shortness of breath, or wheezing Cardiovascular ROS: no chest pain or dyspnea on exertion Gastrointestinal ROS: denies abdominal pain, bright red blood in stool. Musculoskeletal ROS: no myalgias or arthralgias Neurological ROS: no TIA or stroke symptoms Dermatological ROS: no new or changing skin lesions, rashes or pruritis Physical Exam Physical Exam General appearance: alert, cooperative, no distress, appears stated age Head: Normocephalic, without obvious abnormality, atraumatic Eyes: conjunctivae/corneas clear. PERRL, EOM's intact. Fundi benign Throat: Lips, mucosa, and tongue normal. Teeth and gums normal Neck: supple, symmetrical, trachea midline, no adenopathy, thyroid: not enlarged, symmetric, no tenderness/mass/nodules, no carotid bruit and no JVD Lungs: clear to auscultation bilaterally Heart: regular rate and rhythm, S1, S2 normal, no murmur, click, rub or gallop Abdomen: soft, non-tender. Bowel sounds normal. No masses, no organomegaly Extremities: extremities see below Pulses: 2+ and symmetric Skin: Skin color, texture, turgor normal. No rashes or lesions Neurologic: Grossly normal Last 24 Hour Vital Signs Date Time Temp Pulse Resp B/P (MAP) Pulse Ox O2 Delivery O2 Flow Rate FiO2 09/07/20 12:00 98.2 95 20 152/89 (110) 95 09/07/20 11:41 98.2 09/07/20 11:41 98 18 99 Nasal Cannula 2.0 28 96 20 92 09/07/20 09:00 Room Air 2.0 09/07/20 08:59 141/90 09/07/20 08:00 98.1 92 20 141/90 (107) 98 09/07/20 07:44 94 18 99 Nasal Cannula 2.0 28 92 20 96 09/07/20 07:44 96 Nasal Cannula 2.0 28 09/07/20 04:00 98.2 89 20 146/84 (104) 96 09/07/20 03:40 94 18 98 Nasal Cannula 2.0 28 94 18 96 09/07/20 00:00 98.1 94 18 142/92 (109) 98 09/06/20 23:25 92 18 98 Nasal Cannula 2.0 28 87 18 95 09/06/20 21:00 Room Air 2.0 09/06/20 20:00 97.9 98 22 159/85 (109) 94 09/06/20 19:11 98 18 98 Nasal Cannula 2.0 28 96 18 95 09/06/20 19:11 95 Nasal Cannula 2.0 28 09/06/20 16:00 97.4 104 19 121/78 (92) 95 09/06/20 15:04 96 18 98 Nasal Cannula 2.0 28 95 18 96 09/06/20 13:21 98.1 Intake and Output 09/06/20 09/07/20 19:00 07:00 Intake Total 1200 ml 480 ml Balance 1200 ml 480 ml Intake Oral 1200 ml 480 ml # Voids 4 3 # Bowel Movements 1 Laboratory Tests Test 09/06/20 15:59 09/06/20 21:38 09/07/20 05:30 09/07/20 11:19 POC Whole Blood Glucose 211 MG/DL (74-106) H 173 MG/DL (74-106) H 187 MG/DL (74-106) H 207 MG/DL (74-106) H Height (Feet): 5 Height (Inches): 0.50 Weight (Pounds): 267 Medications Current Medications Medications (Trade) Dose Ordered Sig/Juan Route PRN Reason Start Time Stop Time Status Last Admin Dose Admin Acetaminophen (Tylenol) 650 mg Q6H PRN ORAL Mild Pain (Pain Scale 1-3) 09/05/20 19:00 10/05/20 18:59 Acetaminophen/ Hydrocodone Bitart ([place] 10/325) 1 tab Q6H PRN ORAL Moderate Pain (Pain Scale 4-6) 09/05/20 14:30 09/12/20 14:29 09/06/20 02:40 Albuterol Sulfate (Proventil) 2.5 mg Q4H PRN HHN Bronchospasm 09/05/20 14:30 09/10/20 14:29 Albuterol/ Ipratropium (Albuterol/ Ipratropium) 3 ml Q4HRT HHN 09/05/20 15:00 09/10/20 14:59 09/07/20 11:41 Aspirin (ASA) 81 mg DAILY ORAL 09/06/20 09:00 10/21/20 08:59 09/07/20 08:59 Carisoprodol (Soma) 350 mg Q4H PRN ORAL For Pain 09/05/20 14:30 10/05/20 14:29 09/07/20 01:23 Dextrose (Dextrose 50%) 25 ml Q30M PRN IV Hypoglycemia 09/05/20 14:30 12/04/20 14:29 Dextrose (Dextrose 50%) 50 ml Q30M PRN IV Hypoglycemia 09/05/20 14:30 12/04/20 14:29 Diphenhydramine HCl (Benadryl) 50 mg Q4H PRN ORAL Itching 09/07/20 07:30 10/07/20 07:29 09/07/20 08:58 Docusate Sodium (Colace) 100 mg TWICE A DAY ORAL 09/05/20 18:00 10/05/20 17:59 09/07/20 08:59 Fluticasone Propionate (Flonase) 1 spray TWICE A DAY PRN NASAL AD 09/05/20 18:00 10/05/20 17:59 09/07/20 09:21 Gabapentin (Neurontin) 300 mg THREE TIMES A DAY ORAL 09/05/20 18:00 10/05/20 17:59 09/07/20 08:59 Hydralazine HCl (Apresoline) 25 mg Q4H PRN ORAL For High Blood Pressure 09/05/20 14:30 12/04/20 14:29 Hydromorphone HCl (Dilaudid) 2 mg Q4H PRN IM Severe Pain (Pain Scale 7-10) 09/06/20 08:15 09/12/20 14:29 09/07/20 11:11 Insulin Aspart (NovoLOG) BEFORE MEALS AND HS SUBQ 09/05/20 16:30 12/04/20 16:29 09/07/20 11:30 Insulin Detemir (Levemir) 6 units BID SUBQ 09/05/20 18:00 12/04/20 17:59 09/07/20 09:08 Losartan Potassium (Cozaar) 100 mg DAILY ORAL 09/06/20 09:00 10/06/20 08:59 09/07/20 08:59 Metformin HCl (Glucophage) 1,000 mg TIAC ORAL 09/05/20 16:30 10/05/20 16:29 09/07/20 11:11 Methylprednisolone Sodium Succinate (Solu-MEDROL) 40 mg EVERY 8 HOURS IVP 09/05/20 22:00 12/04/20 21:59 Pantoprazole (Protonix) 40 mg DAILY ORAL 09/06/20 09:00 10/06/20 08:59 09/07/20 08:59 Topiramate (Topamax) 25 mg DAILY ORAL 09/05/20 09:00 10/05/20 08:59 09/07/20 08:59 Zolpidem Tartrate (Ambien) 5 mg BEDTIME PRN ORAL Insomnia 09/05/20 21:00 09/12/20 20:59 09/07/20 01:24 Assessment/Plan Problem List: (1) Blister of foot with infection Assessment & Plan: xcruciating bilateral lower extremity and feet pain. States she feels a cramping pain as if her legs and feet are janice. States that when she is identifying is an edema but more contraction given the amount of discomfort she is having. States history of Raynaud's and has continued to have this problem in the past. No nausea vomiting fever chills. Pain 10 out of 10 cramping pain. Feels like spasms. Identified to have a large blister on the plantar aspect of her foot. Denies any trauma. blister stable blood blister cellulitis in bilateral lower extremities. edema, erythema, tender pulses okay and no issues with inflow outflow okay blister stable and hold on drainage cover with abd and wrap prn okay to ambulate pain control okay for diet will follow with recs thank you ICD Codes: S90.829A - Blister (nonthermal), unspecified foot, initial encounter; L08.9 - Local infection of the skin and subcutaneous tissue, unspecified SNOMED: 24975096 (2) Cellulitis Assessment & Plan: bilateral lower extremity cellulitis related to Raynauds no wbc hydration pain control activity as tolerated ICD Codes: L03.90 - Cellulitis, unspecified SNOMED: 979632244 (3) Dehydration ICD Codes: E86.0 - Dehydration SNOMED: 91361922 (4) Dizziness ICD Codes: R42 - Dizziness and giddiness SNOMED: 093656984 (5) Anxiety ICD Codes: F41.9 - Anxiety disorder, unspecified SNOMED: 88373847 (6) Hyponatremia ICD Codes: E87.1 - Hyponatremia SNOMED: 96505336 (7) Obese ICD Codes: E66.9 - Obesity, unspecified SNOMED: 480801336, 994849150 (8) Syncope ICD Codes: R55 - Syncope SNOMED: 905815656 (9) Metabolic acidosis ICD Codes: E87.2 - Metabolic acidosis SNOMED: 02990195 (10) Abdominal pain (11) Cystitis ICD Codes: N30.90 - Cystitis, unspecified without hematuria SNOMED: 27253561 (12) Cystitis ICD Codes: N30.90 - Cystitis, unspecified without hematuria SNOMED: 15167453 (13) Hypertension ICD Codes: I10 - Essential (primary) hypertension SNOMED: 42257736 (14) Lupus ICD Codes: M32.9 - Systemic lupus erythematosus, unspecified SNOMED: 557018618 (15) GE (gastroenteritis) ICD Codes: K52.9 - GE (gastroenteritis) SNOMED: 18598591 (16) COPD exacerbation ICD Codes: J44.1 - Chronic obstructive pulmonary disease with (acute) exacerb ation SNOMED: 271206551 (17) Diabetes mellitus type 2 in obese ICD Codes: E11.69 - Type 2 diabetes mellitus with other specified complication; E66.9 - Obesity, unspecified SNOMED: 90847384 (18) Asthma exacerbation ICD Codes: J45.901 - Unspecified asthma with (acute) exacerbation SNOMED: 645063602 (19) Chest pain (20) Chronic pain (21) Flank pain (22) Headache (23) Herpes zoster (24) Opioid abuse (25) Opioid dependence (26) Opioid dependence (27) lupus flare Farhad Salamanca Sep 07, 2020 13:15
[2020-09-07 16:00] VITALS: BP 151/91
--- NOTE | 2020-09-07 16:59 | General Progress Note ---
Subjective ROS Limited/Unobtainable: No Constitutional: Reports: malaise, weakness HEENT: Reports: no symptoms Cardiovascular: Reports: edema Respiratory: Reports: shortness of breath Gastrointestinal/Abdominal: Reports: no symptoms Genitourinary: Reports: no symptoms Neurologic/Psychiatric: Reports: no symptoms Endocrine: Reports: no symptoms Hematologic/Lymphatic: Reports: no symptoms Allergies: Coded Allergies: CIPROFLOXACIN (Verified Allergy, Severe, TWITCHING,ANAPHYLACTIC, 02/14/12) CIPROFLOXACIN HCL (Unverified Allergy, Severe, rash, 05/22/13) KETOROLAC (Verified Allergy, Severe, ITCHING,SWELLING, 12/31/11) KETOROLAC TROMETHAMINE (Unverified Allergy, Severe, rash, 05/22/13) LATEX (Verified Allergy, Severe, ITCHING,SWELLING,ANAPHYLACTIC, 02/14/12) PROCHLORPERAZINE (Verified Allergy, Severe, SWELLING,ITCHING, 12/31/11) PROCHLORPERAZINE EDISYLATE (Unverified Allergy, Severe, rash, 05/22/13) PROCHLORPERAZINE MALEATE (Unverified Allergy, Severe, rash, 05/22/13) ENOXAPARIN (Unverified Allergy, Unknown, Anaphylaxis, 09/16/14) METHYLPHENIDATE HCL (Verified Allergy, Unknown, 03/13/14) POTASSIUM CHLORIDE (Unverified Allergy, Unknown, 09/16/14) swollen tongue VANCOMYCIN (Verified Adverse Reaction, Intermediate, REDMANS SYNDROME, 04/24/12) PT IS FINE LONG VANCO INFUSED OVER 2 HRS Uncoded Allergies: PLASTIC TAPE (Allergy, Unknown, 09/05/11) All Systems: reviewed and negative except above Subjective c/o severe foot pain. right greater than left. developed large blood blister on the bottom of the right foot. decrease wheezing and sob Objective Last 24 Hour Vital Signs Date Time Temp Pulse Resp B/P (MAP) Pulse Ox O2 Delivery O2 Flow Rate FiO2 09/07/20 15:58 99 18 99 Nasal Cannula 2.0 28 97 20 94 09/07/20 13:50 98.2 09/07/20 12:00 98.2 95 20 152/89 (110) 95 09/07/20 11:41 98.2 09/07/20 11:41 98 18 99 Nasal Cannula 2.0 28 96 20 92 09/07/20 09:00 Room Air 2.0 09/07/20 08:59 141/90 09/07/20 08:00 98.1 92 20 141/90 (107) 98 09/07/20 07:44 94 18 99 Nasal Cannula 2.0 28 92 20 96 09/07/20 07:44 96 Nasal Cannula 2.0 28 09/07/20 04:00 98.2 89 20 146/84 (104) 96 09/07/20 03:40 94 18 98 Nasal Cannula 2.0 28 94 18 96 09/07/20 00:00 98.1 94 18 142/92 (109) 98 09/06/20 23:25 92 18 98 Nasal Cannula 2.0 28 87 18 95 09/06/20 21:00 Room Air 2.0 09/06/20 20:00 97.9 98 22 159/85 (109) 94 09/06/20 19:11 98 18 98 Nasal Cannula 2.0 28 96 18 95 09/06/20 19:11 95 Nasal Cannula 2.0 28 Intake and Output 09/06/20 09/07/20 19:00 07:00 Intake Total 1200 ml 480 ml Balance 1200 ml 480 ml Intake Oral 1200 ml 480 ml # Voids 4 3 # Bowel Movements 1 Laboratory Tests 09/06/20 21:38: POC Whole Blood Glucose 173H 09/07/20 05:30: POC Whole Blood Glucose 187H 09/07/20 11:19: POC Whole Blood Glucose 207H 09/07/20 16:49: POC Whole Blood Glucose 167H Height (Feet): 5 Height (Inches): 0.50 Weight (Pounds): 267 General Appearance: WD/WN, alert, mild distress EENT: PERRL/EOMI, normal ENT inspection Neck: non-tender, normal alignment, supple Cardiovascular: normal peripheral pulses, normal rate Respiratory/Chest: chest wall non-tender, lungs clear, normal breath sounds, no respiratory distress, no accessory muscle use Abdomen: normal bowel sounds, non tender, soft, no organomegaly, no mass Edema: no edema noted Arm (L), no edema noted Arm (R) Neurologic: pega developer II-XII 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, alert, oriented x 3, responsive Assessment/Plan Problem List: (1) Blister of foot with infection ICD Codes: S90.829A - Blister (nonthermal), unspecified foot, initial encounter; L08.9 - Local infection of the skin and subcutaneous tissue, unspecified SNOMED: 20453397 (2) Abdominal pain (3) Obese ICD Codes: E66.9 - Obesity, unspecified SNOMED: 430143840, 642766035 (4) Dizziness ICD Codes: R42 - Dizziness and giddiness SNOMED: 660777839 (5) Anxiety ICD Codes: F41.9 - Anxiety disorder, unspecified SNOMED: 53282395 (6) Hypertension ICD Codes: I10 - Essential (primary) hypertension SNOMED: 79847569 (7) Lupus ICD Codes: M32.9 - Systemic lupus erythematosus, unspecified SNOMED: 832362082 (8) COPD exacerbation ICD Codes: J44.1 - Chronic obstructive pulmonary disease with (acute) exacerbation SNOMED: 500232529 (9) Asthma exacerbation ICD Codes: J45.901 - Unspecified asthma with (acute) exacerbation SNOMED: 154362347 (10) Diabetes mellitus type 2 in obese ICD Codes: E11.69 - Type 2 diabetes mellitus with other specified complication; E66.9 - Obesity, unspecified SNOMED: 64337603 Status: stable Assessment/Plan: pain meds resp care dc iv steroids podiatry eval po abx titrate pain rx snf dc Karthik Granado MD Sep 07, 2020 16:59
--- NOTE | 2020-09-07 19:14 | Consultation ---
History of Present Illness General Date patient seen: Sep 07, 2020 Time patient seen: 12:30 Chief Complaint: Pain R foot blister. Referring physician: Dr. Landry Reason for Consultation: Painful R foot blister. Present Illness HPI Pt seen bedside for painful R foot blister. She relates edema and pain to B/L L/E. Denies any acute SOI to blister. Allergies: Coded Allergies: CIPROFLOXACIN (Verified Allergy, Severe, TWITCHING,ANAPHYLACTIC, 02/14/12) CIPROFLOXACIN HCL (Unverified Allergy, Severe, rash, 05/22/13) KETOROLAC (Verified Allergy, Severe, ITCHING,SWELLING, 12/31/11) KETOROLAC TROMETHAMINE (Unverified Allergy, Severe, rash, 05/22/13) LATEX (Verified Allergy, Severe, ITCHING,SWELLING,ANAPHYLACTIC, 02/14/12) PROCHLORPERAZINE (Verified Allergy, Severe, SWELLING,ITCHING, 12/31/11) PROCHLORPERAZINE EDISYLATE (Unverified Allergy, Severe, rash, 05/22/13) PROCHLORPERAZINE MALEATE (Unverified Allergy, Severe, rash, 05/22/13) ENOXAPARIN (Unverified Allergy, Unknown, Anaphylaxis, 09/16/14) METHYLPHENIDATE HCL (Verified Allergy, Unknown, 03/13/14) POTASSIUM CHLORIDE (Unverified Allergy, Unknown, 09/16/14) swollen tongue VANCOMYCIN (Verified Adverse Reaction, Intermediate, REDMANS SYNDROME, 04/24/12) PT IS FINE LONG VANCO INFUSED OVER 2 HRS Uncoded Allergies: PLASTIC TAPE (Allergy, Unknown, 09/05/11) Medication History Scheduled Aspirin* (Aspirin*), 81 MG ORAL DAILY, (Reported) Docusate Sodium* (Colace*), 100 MG ORAL TWICE A DAY, (Reported) Gabapentin* (Neurontin*), 300 MG ORAL THREE TIMES A DAY, (Reported) Insulin Detemir (Levemir Flexpen), 6 UNITS SUBQ BID Insulin Detemir (Levemir Flexpen), 6 UNITS SUBQ BID Losartan Potassium* (Cozaar*), 100 MG ORAL DAILY, (Reported) Losartan Potassium* (Cozaar*), 100 MG ORAL DAILY Metformin Hcl* (Glucophage*), 1,000 MG ORAL TIAC Metoclopramide Hcl* (Reglan*), 10 MG ORAL TWICE A DAY, (Reported) Ondansetron (Zofran), 4 MG ORAL Q8H, (Reported) Pantoprazole* (Protonix*), 40 MG ORAL DAILY, (Reported) Prednisone* (Prednisone*), 20 MG ORAL DAILY, (Reported) Topiramate* (Topamax*), 25 MG ORAL DAILY, (Reported) Scheduled PRN Albuterol Sulfate* (Albuterol Sulfate Hhn*), 2.5 MG HHN Q4H PRN for Bronchospasm, (Reported) Carisoprodol* (Soma*), 1 TAB ORAL Q4H PRN for For Pain, (Reported) Clonidine Hcl* (Catapres*), 0.1 MG ORAL Q4H PRN for For High Blood Pressure, (Reported) Fluticasone Propionate* (Fluticasone Propionate*), 1 SPRAY NASAL TWICE A DAY PRN for AD, (Reported) Hydralazine Hcl* (Hydralazine Hcl*), 25 MG ORAL Q4H PRN Hydrocodone Bit/Acetaminophen 10-325* (Hydrocodon-Acetaminophn 10-325*), 1 TAB ORAL Q6H PRN for For Pain, (Reported) Hydromorphone Hcl/Pf (Hydromorphone 2 Mg/Ml Syringe*), 2 MG IVP Q4H PRN Sumatriptan Succinate* (Imitrex*), 50 MG ORAL DAILY PRN MIGRAINE PRN for For Pain, (Reported) Zolpidem Tartrate* (Zolpidem Tartrate*), 5 MG ORAL BEDTIME PRN for Insomnia, (Reported) Patient History Healthcare decision maker Resuscitation status Advanced Directive on File Physical Exam Physical Exam Narrative Focused RLE Exam: Derm: R foot: Serous blister formation noted plantar midfoot. Mild (+) POP. Minimal landen-blister erythema and edema. (+) Edema noted B/L L/E. Vasc: +2/4 DP/PT pulses. Neuro: SILT diminished. MSK: MS/ROM deferred secondary to pain. Last 24 Hour Vital Signs Date Time Temp Pulse Resp B/P (MAP) Pulse Ox O2 Delivery O2 Flow Rate FiO2 09/07/20 18:27 98.5 11/30/20 16:00 98.5 92 20 151/91 (111) 98 09/07/20 15:58 99 18 99 Nasal Cannula 2.0 28 97 20 94 09/07/20 13:50 98.2 09/07/20 12:00 98.2 95 20 152/89 (110) 95 09/07/20 11:41 98.2 09/07/20 11:41 98 18 99 Nasal Cannula 2.0 28 96 20 92 09/07/20 09:00 Room Air 2.0 09/07/20 08:59 141/90 09/07/20 08:00 98.1 92 20 141/90 (107) 98 09/07/20 07:44 94 18 99 Nasal Cannula 2.0 28 92 20 96 09/07/20 07:44 96 Nasal Cannula 2.0 28 09/07/20 04:00 98.2 89 20 146/84 (104) 96 09/07/20 03:40 94 18 98 Nasal Cannula 2.0 28 94 18 96 09/07/20 00:00 98.1 94 18 142/92 (109) 98 09/06/20 23:25 92 18 98 Nasal Cannula 2.0 28 87 18 95 09/06/20 21:00 Room Air 2.0 09/06/20 20:00 97.9 98 22 159/85 (109) 94 09/06/20 19:11 98 18 98 Nasal Cannula 2.0 28 96 18 95 09/06/20 19:11 95 Nasal Cannula 2.0 28 Intake and Output 09/06/20 09/07/20 19:00 07:00 Intake Total 1200 ml 480 ml Balance 1200 ml 480 ml Intake Oral 1200 ml 480 ml # Voids 4 3 # Bowel Movements 1 Laboratory Tests Test 09/06/20 21:38 09/07/20 05:30 09/07/20 11:19 09/07/20 16:49 POC Whole Blood Glucose 173 MG/DL (74-106) H 187 MG/DL (74-106) H 207 MG/DL (74-106) H 167 MG/DL (74-106) H Height (Feet): 5 Height (Inches): 0.50 Weight (Pounds): 267 Medications Current Medications Medications (Trade) Dose Ordered Sig/Juan Route PRN Reason Start Time Stop Time Status Last Admin Dose Admin Acetaminophen (Tylenol) 650 mg Q6H PRN ORAL Mild Pain (Pain Scale 1-3) 09/05/20 19:00 10/05/20 18:59 Acetaminophen/ Hydrocodone Bitart (Seward 10325) 1 tab Q6H PRN ORAL Moderate Pain (Pain Scale 4-6) 09/05/20 14:30 09/12/20 14:29 09/06/20 02:40 Albuterol Sulfate (Proventil) 2.5 mg Q4H PRN HHN Bronchospasm 09/05/20 14:30 09/10/20 14:29 Albuterol/ Ipratropium (Albuterol/ Ipratropium) 3 ml Q4HRT HHN 09/05/20 15:00 09/10/20 14:59 09/07/20 15:56 Aspirin (ASA) 81 mg DAILY ORAL 09/06/20 09:00 10/21/20 08:59 09/07/20 08:59 Carisoprodol (Soma) 350 mg Q4H PRN ORAL For Pain 09/05/20 14:30 10/05/20 14:29 09/07/20 13:20 Dextrose (Dextrose 50%) 25 ml Q30M PRN IV Hypoglycemia 09/05/20 14:30 12/04/20 14:29 Dextrose (Dextrose 50%) 50 ml Q30M PRN IV Hypoglycemia 09/05/20 14:30 12/04/20 14:29 Diphenhydramine HCl (Benadryl) 50 mg Q4H PRN ORAL Itching 09/07/20 07:30 10/07/20 07:29 09/07/20 17:58 Docusate Sodium (Colace) 100 mg TWICE A DAY ORAL 09/05/20 18:00 10/05/20 17:59 09/07/20 17:58 Fluticasone Propionate (Flonase) 1 spray TWICE A DAY PRN NASAL AD 09/05/20 18:00 10/05/20 17:59 09/07/20 09:21 Gabapentin (Neurontin) 600 mg THREE TIMES A DAY ORAL 09/07/20 18:00 10/07/20 17:59 09/07/20 17:58 Hydralazine HCl (Apresoline) 25 mg Q4H PRN ORAL For High Blood Pressure 09/05/20 14:30 12/04/20 14:29 Hydromorphone HCl (Dilaudid) 2 mg Q4H PRN IM Severe Pain (Pain Scale 7-10) 09/06/20 08:15 09/12/20 14:29 09/07/20 17:57 Insulin Aspart (NovoLOG) BEFORE MEALS AND HS SUBQ 09/05/20 16:30 12/04/20 16:29 09/07/20 17:01 Insulin Detemir (Levemir) 6 units BID SUBQ 09/05/20 18:00 12/04/20 17:59 09/07/20 17:59 Losartan Potassium (Cozaar) 100 mg DAILY ORAL 09/06/20 09:00 10/06/20 08:59 09/07/20 08:59 Metformin HCl (Glucophage) 1,000 mg TIAC ORAL 09/05/20 16:30 10/05/20 16:29 09/07/20 16:46 Pantoprazole (Protonix) 40 mg DAILY ORAL 09/06/20 09:00 10/06/20 08:59 09/07/20 08:59 Topiramate (Topamax) 25 mg DAILY ORAL 09/05/20 09:00 10/05/20 08:59 09/07/20 08:59 Zolpidem Tartrate (Ambien) 5 mg BEDTIME PRN ORAL Insomnia 09/05/20 21:00 09/12/20 20:59 09/07/20 01:24 Assessment/Plan Assessment/Plan: R foot plantar midfoot Blister Raynaud's DM HTN COPD P: - Pt seen and evaluated. - Discuss findings with patient. - labs and chart reviewed. - Risks and Benefits discussed with patient regarding R foot blister evacuation at bedside. Pt agreed to bedside procedure, all questions answered in detail. Right foot prepped with alcohol pad. Blister evacuated at bedside with 20 gauge sterile needle. Upon compression, serous drainage noted. No purulent drainage. Betadine compression dressing applied with ABD. - Cont IV ABx. - Daily betadine dressing change with ABD pad. - Off-loading measures to B/L L/E. - No acute surgical intervention required by podiatry. - Cont Tx per specialists. - Podiatry will cont to monitor. Federico Fernandez DPM Sep 07, 2020 19:14
[2020-09-07 20:00] VITALS: BP 146/76
[2020-09-08] VITALS: BP 159/85
[2020-09-08] MEDS: Albuterol/Ipratropium 3ml neb HHN SCH ×6 (03:50→23:05)
[2020-09-08 04:00] VITALS: BP 144/90
[2020-09-08] MEDS: metFORMIN 500mg tab ORAL SCH ×3 (06:31→16:18)
[2020-09-08] MEDS: NovoLOG Insulin Flexpen SUBQ SCH ×4 (06:32→20:42)
[2020-09-08 08:00] VITALS: BP 157/108
[2020-09-08] MEDS: Levemir Flexpen SUBQ SCH ×2 (08:10→17:54)
[2020-09-08] MEDS: Losartan 50mg tab ORAL SCH (08:13)
[2020-09-08] MEDS: Docusate 100mg cap ORAL SCH ×2 (08:13→17:55)
[2020-09-08] MEDS: Topiramate 25mg tab ORAL SCH (08:14)
[2020-09-08] MEDS: Aspirin Baby 81mg ORAL SCH (08:14)
--- NOTE | 2020-09-08 09:10 | General Progress Note ---
Subjective ROS Limited/Unobtainable: No Constitutional: Reports: malaise, weakness HEENT: Reports: no symptoms Cardiovascular: Reports: no symptoms Respiratory: Reports: cough, shortness of breath, wheezing Gastrointestinal/Abdominal: Reports: no symptoms Genitourinary: Reports: no symptoms Neurologic/Psychiatric: Reports: anxiety, depressed, emotional problems Endocrine: Reports: no symptoms Hematologic/Lymphatic: Reports: no symptoms Allergies: Coded Allergies: CIPROFLOXACIN (Verified Allergy, Severe, TWITCHING,ANAPHYLACTIC, 02/14/12) CIPROFLOXACIN HCL (Unverified Allergy, Severe, rash, 05/22/13) KETOROLAC (Verified Allergy, Severe, ITCHING,SWELLING, 12/31/11) KETOROLAC TROMETHAMINE (Unverified Allergy, Severe, rash, 05/22/13) LATEX (Verified Allergy, Severe, ITCHING,SWELLING,ANAPHYLACTIC, 02/14/12) PROCHLORPERAZINE (Verified Allergy, Severe, SWELLING,ITCHING, 12/31/11) PROCHLORPERAZINE EDISYLATE (Unverified Allergy, Severe, rash, 05/22/13) PROCHLORPERAZINE MALEATE (Unverified Allergy, Severe, rash, 05/22/13) ENOXAPARIN (Unverified Allergy, Unknown, Anaphylaxis, 09/16/14) METHYLPHENIDATE HCL (Verified Allergy, Unknown, 03/13/14) POTASSIUM CHLORIDE (Unverified Allergy, Unknown, 09/16/14) swollen tongue VANCOMYCIN (Verified Adverse Reaction, Intermediate, REDMANS SYNDROME, 04/24/12) PT IS FINE LONG VANCO INFUSED OVER 2 HRS Uncoded Allergies: PLASTIC TAPE (Allergy, Unknown, 09/05/11) All Systems: reviewed and negative except above Subjective c/o foot pain. podiatry eval appreciated. blood blister on right foot lanced. no fever or chills. c/o sob and wheezing. Objective Last 24 Hour Vital Signs Date Time Temp Pulse Resp B/P (MAP) Pulse Ox O2 Delivery O2 Flow Rate FiO2 09/08/20 09:00 Room Air 2.0 09/08/20 08:56 95 Nasal Cannula 2.0 28 09/08/20 08:44 97.8 09/08/20 08:13 157/108 09/08/20 08:00 98.1 91 20 157/108 (124) 96 12/1/20 04:00 97.8 90 20 144/90 (108) 93 09/08/20 03:50 97 18 98 Nasal Cannula 2.0 28 96 20 95 09/08/20 00:00 97.2 92 19 159/85 (109) 97 09/07/20 23:57 99 18 98 Nasal Cannula 2.0 28 90 20 93 09/07/20 21:00 Room Air 2.0 09/07/20 20:00 98.6 95 18 146/76 (99) 95 09/07/20 19:48 97 18 94 Nasal Cannula 2.0 28 93 18 94 09/07/20 19:48 96 Nasal Cannula 2.0 28 09/07/20 18:27 98.5 09/07/20 16:00 98.5 92 20 151/91 (111) 98 09/07/20 15:58 99 18 99 Nasal Cannula 2.0 28 97 20 94 09/07/20 13:50 98.2 09/07/20 12:00 98.2 95 20 152/89 (110) 95 09/07/20 11:41 98.2 09/07/20 11:41 98 18 99 Nasal Cannula 2.0 28 96 20 92 Intake and Output 09/07/20 09/08/20 19:00 07:00 Intake Total 750 ml 750 ml Balance 750 ml 750 ml Intake Oral 750 ml 750 ml # Voids 4 2 # Bowel Movements 1 1 Laboratory Tests 09/07/20 11:19: POC Whole Blood Glucose 207H 09/07/20 16:49: POC Whole Blood Glucose 167H 09/07/20 22:12: POC Whole Blood Glucose 218H 09/08/20 06:28: POC Whole Blood Glucose 208H Height (Feet): 5 Height (Inches): 0.50 Weight (Pounds): 267 Objective General Appearance: WD/WN, alert, mild distress EENT: PERRL/EOMI, normal ENT inspection Neck: non-tender, normal alignment, supple Cardiovascular: normal peripheral pulses, normal rate Respiratory/Chest: chest wall non-tender, lungs clear, normal breath sounds, no respiratory distress, no accessory muscle use Abdomen: normal bowel sounds, non tender, soft, no organomegaly, no mass Edema: no edema noted Arm (L), no edema noted Arm (R). +blister- flat bottom right foot Neurologic: instrument technologist II-XII 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, alert, oriented x 3, responsive Assessment/Plan Problem List: (1) Blister of foot with infection ICD Codes: S90.829A - Blister (nonthermal), unspecified foot, initial encounter; L08.9 - Local infection of the skin and subcutaneous tissue, unspecified SNOMED: 84937498 (2) Abdominal pain (3) Obese ICD Codes: E66.9 - Obesity, unspecified SNOMED: 785523086, 451442589 (4) Dizziness ICD Codes: R42 - Dizziness and giddiness SNOMED: 184855875 (5) Anxiety ICD Codes: F41.9 - Anxiety disorder, unspecified SNOMED: 74237066 (6) Hypertension ICD Codes: I10 - Essential (primary) hypertension SNOMED: 98277480 (7) Lupus ICD Codes: M32.9 - Systemic lupus erythematosus, unspecified SNOMED: 937782618 (8) COPD exacerbation ICD Codes: J44.1 - Chronic obstructive pulmonary disease with (acute) exacerbation SNOMED: 015229529 (9) Asthma exacerbation ICD Codes: J45.901 - Unspecified asthma with (acute) exacerbation SNOMED: 453342782 (10) Diabetes mellitus type 2 in obese ICD Codes: E11.69 - Type 2 diabetes mellitus with other specified complication; E66.9 - Obesity, unspecified SNOMED: 95173807 Status: stable Assessment/Plan: pain meds resp care dc iv steroids podiatry eval po abx titrate pain rx anxiolytics snf dc fabios Karthik Garvin MD Sep 08, 2020 09:10
[2020-09-08] MEDS ORDERED: LORazepam 1mg tab ORAL PRN (09:15)
[2020-09-08] MEDS: MS Contin 15mg tab ORAL SCH ×2 (09:54→22:05)
[2020-09-08] MEDS: Cephalexin 500mg cap ORAL SCH ×4 (09:54→20:25)
--- NOTE | 2020-09-08 10:04 | Diagnostic Imaging Report ---
Indication: Bilateral lower extremity pain Technique: Grayscale and duplex images of the bilateral lower extremity arteries Comparison: 04/14/2020 Findings: On the right, triphasic waveforms with sharp systolic upstrokes are seen at all levels. No focal flow velocity elevation demonstrated. No sonographic evidence of significant stenotic plaque. Note, however, that due to bandages, the distal tibial vessels including the dorsalis pedis artery could not be imaged On the left, Doppler waveforms at all levels demonstrate sharp systolic peaks with sharp upstrokes. There is no significant change from the prior study Impression: Negative for evidence of lower extremity arterial insufficiency bilaterally. Note, however, that the exam is somewhat limited as the ankle/foot vessels on the right could not be interrogated
[2020-09-08 12:00] VITALS: BP 175/103
[2020-09-08 16:00] VITALS: BP 161/87
--- NOTE | 2020-09-08 16:08 | Surgery Progress Note ---
Surgery Progress Note Subjective Additional Comments blister drained by podiatry appreciate input no acute events comfortable Objective Last 24 Hour Vital Signs Date Time Temp Pulse Resp B/P (MAP) Pulse Ox O2 Delivery O2 Flow Rate FiO2 09/08/20 14:45 98 20 175/103 98 09/08/20 12:54 97.8 09/08/20 12:00 98.0 98 20 175/103 (127) 98 09/08/20 10:24 97.8 09/08/20 09:00 Room Air 2.0 09/08/20 08:56 95 Nasal Cannula 2.0 28 09/08/20 08:44 97.8 09/08/20 08:13 157/108 09/08/20 08:00 98.1 91 20 157/108 (124) 96 09/08/20 04:00 97.8 90 20 144/90 (108) 93 09/08/20 03:50 97 18 98 Nasal Cannula 2.0 28 96 20 95 09/08/20 00:00 97.2 92 19 159/85 (109) 97 09/07/20 23:57 99 18 98 Nasal Cannula 2.0 28 90 20 93 09/07/20 21:00 Room Air 2.0 09/07/20 20:00 98.6 95 18 146/76 (99) 95 09/07/20 19:48 97 18 94 Nasal Cannula 2.0 28 93 18 94 09/07/20 19:48 96 Nasal Cannula 2.0 28 09/07/20 18:27 98.5 I&O Intake and Output 09/07/20 09/08/20 19:00 07:00 Intake Total 750 ml 750 ml Balance 750 ml 750 ml Intake Oral 750 ml 750 ml # Voids 4 2 # Bowel Movements 1 1 Dressing: dry Wound: clean Cardiovascular: RSR Respiratory: decreased breath sounds Abdomen: non-tender, present bowel sounds Extremities: no tenderness, no cyanosis, other Laboratory Tests Test 09/07/20 16:49 09/07/20 22:12 09/08/20 06:28 09/08/20 11:06 POC Whole Blood Glucose 167 MG/DL (74-106) H 218 MG/DL (74-106) H 208 MG/DL (74-106) H 199 MG/DL (74-106) H Plan Problems: (1) Blister of foot with infection Assessment & Plan: xcruciating bilateral lower extremity and feet pain. States she feels a cramping pain as if her legs and feet are janice. States that when she is identifying is an edema but more contraction given the amount of discomfort she is having. States history of Raynaud's and has continued to have this problem in the past. No nausea vomiting fever chills. Pain 10 out of 10 cramping pain. Feels like spasms. Identified to have a large blister on the plantar aspect of her foot. Denies any trauma. blister stable blood blister cellulitis in bilateral lower extremities. edema, erythema, tender pulses okay and no issues with inflow outflow okay blister stable and hold on drainage cover with abd and wrap prn okay to ambulate pain control okay for diet will follow with recs thank you (2) Cellulitis Assessment & Plan: bilateral lower extremity cellulitis related to Raynauds no wbc hydration pain control activity as tolerated On the right, triphasic waveforms with sharp systolic upstrokes are seen at all levels. No focal flow velocity elevation demonstrated. No sonographic evidence of significant stenotic plaque. Note, however, that due to bandages, the distal tibial vessels including the dorsalis pedis artery could not be imaged On the left, Doppler waveforms at all levels demonstrate sharp systolic peaks with sharp upstrokes. There is no significant change from the prior study Impression: Negative for evidence of lower extremity arterial insufficiency bilaterally. Note, however, that the exam is somewhat limited as the ankle/foot vessels on the right could not be interrogated (3) Dehydration (4) Dizziness (5) Anxiety (6) Hyponatremia (7) Obese (8) Syncope (9) Metabolic acidosis (10) Abdominal pain (11) Cystitis (12) Cystitis (13) Hypertension (14) Lupus (15) GE (gastroenteritis) (16) COPD exacerbation (17) Diabetes mellitus type 2 in obese (18) Asthma exacerbation (19) Chest pain (20) Chronic pain (21) Flank pain (22) Headache (23) Herpes zoster (24) Opioid abuse (25) Opioid dependence (26) Opioid dependence (27) lupus flare Farhad Salamanca Sep 08, 2020 16:08
[2020-09-08] MEDS: Ondansetron ODT 8mg tab ORAL PRN (18:36)
[2020-09-08 20:00] VITALS: BP 151/83
[2020-09-09 00:14] VITALS: BP 137/83
[2020-09-09] MEDS: Albuterol/Ipratropium 3ml neb HHN SCH ×3 (03:00→11:00)
[2020-09-09 05:00] VITALS: BP 146/82
[2020-09-09] MEDS: metFORMIN 500mg tab ORAL SCH ×2 (05:54→11:08)
[2020-09-09] MEDS: NovoLOG Insulin Flexpen SUBQ SCH ×2 (05:56→11:15)
[2020-09-09 08:00] VITALS: BP 140/80
[2020-09-09] MEDS ORDERED: GABAPENTIN600 MG ORAL (08:56)
[2020-09-09] MEDS ORDERED: BENADRYL25 MG ORAL (08:56)
[2020-09-09] MEDS ORDERED: NORCO 10-325 T1 EACH ORAL (08:56)
[2020-09-09] MEDS ORDERED: KEFLEX500 M1 ORAL (08:56)
[2020-09-09] MEDS ORDERED: HYDROMORPHO2 MG/1 M5 IM (08:56)
[2020-09-09] MEDS ORDERED: ONDANSETRON ODT8 MG ORAL (08:56)
[2020-09-09] MEDS ORDERED: FLONASE1 SPRAYS NASAL (08:56)
[2020-09-09] MEDS ORDERED: ATIVAN1 MG ORAL (08:56)
[2020-09-09] MEDS ORDERED: GLUCOPHAGE500 MG ORAL (08:56)
[2020-09-09] MEDS ORDERED: ASPIRIN81 MG ORAL (08:56)
[2020-09-09] MEDS ORDERED: CARISOPRODOL350 MG ORAL (08:56)
[2020-09-09] MEDS ORDERED: PANTOPRAZOLE SO40 MG ORAL (08:56)
[2020-09-09] MEDS ORDERED: COZAAR50 MG ORAL (08:56)
[2020-09-09] MEDS ORDERED: TOPAMAX25 MG ORAL (08:56)
[2020-09-09] MEDS ORDERED: COLACE100 MG ORAL (08:56)
[2020-09-09] MEDS ORDERED: LEVEMIR FL100 UNIT/1 SUBQ (08:56)
[2020-09-09] MEDS ORDERED: MS CONTIN15 MG ORAL (08:56)
[2020-09-09] MEDS ORDERED: ALBUTEROL2.5 MG/3 M HHN (08:56)
[2020-09-09] MEDS: Levemir Flexpen SUBQ SCH (09:11)
[2020-09-09] MEDS: Losartan 50mg tab ORAL SCH (09:13)
[2020-09-09] MEDS: Topiramate 25mg tab ORAL SCH (09:14)
[2020-09-09] MEDS: Aspirin Baby 81mg ORAL SCH (09:14)
[2020-09-09] MEDS: Cephalexin 500mg cap ORAL SCH ×2 (09:14→13:00)
[2020-09-09] MEDS: Docusate 100mg cap ORAL SCH (09:14)
[2020-09-09] MEDS: Ondansetron ODT 8mg tab ORAL PRN (09:15)
[2020-09-09] MEDS: MS Contin 15mg tab ORAL SCH (09:15)
[2020-09-09 12:00] VITALS: BP_SYST 138; BP_DIAS 79; BP_DIAS 9
--- NOTE | 2020-09-09 23:30 | Discharge Summary ---
DATE OF ADMISSION: 09/05/2020 DATE OF DISCHARGE: 09/09/2020 ADMISSION DIAGNOSES: Intractable pain, asthma exacerbation, right foot cellulitis, right foot wound, lupus, fibromyalgia, asthma, diabetes. DISCHARGE DIAGNOSES: Intractable pain, asthma exacerbation, right foot cellulitis, right foot wound, lupus, fibromyalgia, asthma, diabetes. HOSPITAL COURSE: Patient was admitted with complaints of severe foot pain due to neuropathy, lupus, and a large right foot ulcer blister. She had a blood blister on the right foot. She was seen by Podiatry. It was I and D'd and lanced. She received IV steroids initially for asthma exacerbation. She improved, but will be discharged to a intermediate facility for wound care as well as pain control. DISCHARGE MEDICATIONS: Please see discharge medication list for discharge medications. DIET: Diabetic cardiac diet. ACTIVITIES: Ad-christina. FOLLOWUP: Patient to follow up in 1 to 2 days at the intermediate facility. Karthik Garvin M.D. DR: MAX JOB#: [id number] CC:
== END 2020-09-09 13:50 | DRG 202 ==
LOC: 3E 13:28
PROC: 0H9MXZZ Drainage of Right Foot Skin, External Approach (ICD-10-PCS; principal; 2020-09-07)
DX: J45.901 Unspecified asthma with (acute) exacerbation (principal); L03.115 Cellulitis of right lower limb; Z68.43 Body mass index [BMI] 50.0-59.9, adult; E11.40 Type 2 diabetes mellitus with diabetic neuropathy, unspecified; E11.621 Type 2 diabetes mellitus with foot ulcer; S90.821A Blister (nonthermal), right foot, initial encounter; J45.909 Unspecified asthma, uncomplicated; M32.9 Systemic lupus erythematosus, unspecified; E66.01 Morbid (severe) obesity due to excess calories; X58.XXXA Exposure to other specified factors, initial encounter; I10 Essential (primary) hypertension; M79.7 Fibromyalgia; Z88.8 Allergy status to other drugs, medicaments and biological substances; Z88.1 Allergy status to other antibiotic agents; Z91.040 Latex allergy status; B02.9 Zoster without complications; E86.0 Dehydration; I73.00 Raynaud's syndrome without gangrene; R42 Dizziness and giddiness
CPT/HCPCS: 36415; 71045; 80053; 82550; 82962; 83036; 84484; 85025; 85651; 87081; 93925; 94640; 94664; J1815; J7620; S5561